=== PATIENT | female | born 1940 | race Caucasian/White ===

== ENCOUNTER 2017-08-31 03:54 | Observation (INO) | payer MEDICARE, SELFPAY ==
[2017-08-31] VITALS (14 sets, daily range): BP systolic 81–126; BP diastolic 36–91; PULSE 58–84; RESP 14–18; TEMP 36.4–36.7; O2SAT 94–99; BMI 18.4; BMI 20.8
--- NOTE | 2017-08-31 03:58 | CT_ITS ---
STUDY: CT BRAIN WITHOUT CONTRAST REASON FOR EXAM: Female, 77 years old. Persistent dizziness for several days worse tonight. History of Meniere's syndrome. RADIATION DOSAGE (If Supplied By Facility): CTDIvol = ( 44.99 ) mGy, DLP = ( 762.36 ) mGycm TECHNIQUE: Transaxial CT imaging of the brain was performed without administration of intravenous contrast material. Individualized dose optimization techniques were used for this CT. COMPARISON: November 18, 2013. FINDINGS: Normal soft tissue structures. Normal calvarium. Normal size ventricles and extra-axial spaces for the patient's age. Normal white matter tracts of the cerebral hemispheres. Normal basal ganglia and thalami. Normal brainstem. Normal cerebellum. There is no intracranial hemorrhage. There are no findings of an acute ischemic infarction. Normal visualized paranasal sinuses. Mastoid air cells well aerated. Appearance of the temporal bones not significantly changed on the images provided. CT/Brain/Head without Contrast IMPRESSION: No acute intracranial abnormality. No significant change from the prior study. If further imaging is limited warranted recommend MRI. Electronically Signed: Sung Lee MD at 5:04 EDT , Service support ,
--- NOTE | 2017-08-31 03:59 | ED.VISSUMM ---
- ER Visit Summary Date of Service: 08/31/17 Chief Complaint: Dizziness History of Present Illness: The patient is a 77 F who complains of dizziness. She has had this for the past 5 days. Patient has a history of M?ni?re's. This was diagnosed by Dr. López with ENT a few years ago. She has been trying Dramamine at home which has not helped. Usually this does help with her symptoms. She denies a fever, headache or chest pain. She has had some nausea without any vomiting. She denies any falls or head trauma. Physical Examination: Vital signs reviewed. HEENT exam unremarkable. Does have cerumen in the right external ear canal. Heart is regular rate and rhythm without murmurs. Lungs are clear to auscultation. Abdomen is soft and nontender. Extremities reveal no edema. Skin exam normal. Neurologic exam normal. Test Results: Laboratory studies are normal. CAT scan of the head reveals no acute findings Emergency Department Course and Treatment: The patient was given IV fluids, Zofran and Antivert. When I reevaluated her she was still having severe dizziness. I then gave her Valium p.o. Upon reevaluation she still cannot move out of the lying position. At this point feel the patient should be admitted for further medications as well as possible physical therapy. Patient was discussed with the hospitalist for admission Treatment Plan: [] Disposition: Admit Impression: Intractable vertigo This note was generated with [employer] dictation software. It may contain incorrect words, spelling, and punctuation that were not noted in review of the chart prior to signing ED Disposition - Plan for ED Patient: Chief Complaint: Dizziness Referrals: Amor Francis Chi, MD [Primary Care Provider] -
[2017-08-31] MEDS: Meclizine 12.5 MG Tablet 25 MG PO (04:07)
[2017-08-31] MEDS: Ondansetron 4 MG/2 ML Vial IV (04:07)
[2017-08-31 04:20] LABS: Absolute Lymphocyte Count 1.74 X10^3/ul (0.83-4.51); Absolute Neutrophil Count 5.2 X10^3/uL (2.0-7.7); Basophil# 0.04 X10^3/uL; Basophil% 0.5 % (0-1); Eosinophil# 0.07 X10^3/uL; Eosinophils% 0.9 % (0-5); Hematocrit 44.4 % (37-47); Hemoglobin 14.5 g/dl (12.0-15.0); Lymphocyte # 1.74 X10^3/ul (4.0); Lymphocyte % 23.1 % (19-41); Mean Corp Hgb Conc 32.7 g/gl (32-36); Mean Corpuscular Hgb 28.4 pg (27.0-32.0); Mean Corpuscular Volume 87.1 fL (81-99); Mean Platelet Vol. 10.8 fl (6.2-12.0); Monocyte# 0.46 X10^3/uL; Monocyte% 6.1 % (0-10); Neutrophil # 5.21 X10^3/uL (2.7-7.7); Neutrophil % 69.3 % (47-70); Platelet Count 269 K/mm3 (150-450); RBC Distribution Width CV 13.5 % (11.6-14.6); RBC Distribution Width SD 43.1 fl (35.1-43.9); White Blood Count 7.5 K/mm3 (4.4-11.0)
[2017-08-31 04:21] LABS: POSITIVE COUNT NO; POSITIVE DIFFERENTIAL NO; POSITIVE MORPHOLOGY NO
[2017-08-31 04:41] LABS: Anion Gap 10 (5-15); BUN 14 mg/dL (7-18); Calcium,Total 9.3 mg/dL (8.5-10.1); Chloride 106 mmol/L (98-107); Creatinine, Serum 0.88 mg/dL (0.55-1.02); EST Glomerular Filtration Rate 66 mL/min (>60); Est Glom Filt Rate - Afr Amer 80 mL/min (>60); Estimated Creatinine Clearance 45.13 ml/min; Glucose 90 mg/dL (74-106); Potassium 3.7 mmol/L (3.5-5.1); Sodium Level 142 mmol/L (136-145)
[2017-08-31] MEDS: diazePAM 5 MG Tablet PO (05:20)
--- NOTE | 2017-08-31 06:15 | PCM.HP.STD ---
Problem List (1) Intractable vertigo Status: Acute (2) Hyperlipidemia Status: Chronic (3) M?ni?re's disease Status: Chronic (4) Polymyalgia rheumatica Status: Chronic (5) Essential tremor Status: Chronic (6) Hypothyroidism Status: Chronic History of Present Illness Date of Admission: 08/31/17 Chief Complaint: Dizziness. The patient is a 77 year old F with past medical history as mentioned above presented to the emergency room because of dizziness. Her symptoms started 3 days ago with dizziness, described as spinning sensation, has been progressive over the last 3 days and today, got more worse, associated with intractable nausea and vomiting, aggravated by movement, no relieving factors and no other associated symptoms. She has a history of M?ni?re's disease and she has been following up with ENT as outpatient. She denies fever or chills. Denied ear pain, discharge or change of her hearing. Denies focal arm or leg weakness. Denies numbness or tingling. She denied chest pain or shortness of breath. In the emergency room, she was afebrile, blood pressure was borderline and she maintained her pulse ox on room air. Her routine blood work was unremarkable. CT scan brain showed no acute findings. She received IV fluids, Antivert, Valium and Zofran without significant improvement. She is not able to ambulate. She is being admitted for intractable vertigo. Past Medical History Past Medical History (Chronic Problems): Chronic Problems Hyperlipidemia (Chronic) M?ni?re's disease (Chronic) Polymyalgia rheumatica (Chronic) Essential tremor (Chronic) Hypothyroidism (Chronic) Allergies CARDIOLITE Allergy (Uncoded 08/31/17 03:57) Other Home Medications: Ambulatory Orders Medication Instructions Recorded Cholecalciferol (Vitamin D3) 5,000 unit PO DAILY 11/18/13 [Vitamin D-3] Levothyroxine Sodium [Levoxyl] 75 mcg PO DAILY 11/18/13 Lorazepam [Ativan] 0.5 mg PO TID PRN PRN 11/18/13 Pravastatin [Pravachol] 80 mg PO DAILY 11/18/13 Prednisone 5 mg PO DAILY 08/31/17 Primidone [Mysoline] 100 mg PO QHS 08/31/17 Surgical History: appendectomy, hysterectomy Psychiatric History: No pertinent psych hx 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 Denies: Anorexia, Chills, Fever Eyes: Reports: Blurred vision. Denies: Double vision, Drainage, Redness HEENT: Denies: Difficulty Hearing, Ear Pain, Eye Pain, Nasal Congestion, Sore Throat Cardiovascular: Reports: Light Headedness. Denies: Chest Pain, Chest Pressure, Chest Tightness, Edema, Heaviness, Orthopnea, Palpitations, Paroxysmal Noc. Dyspnea, Syncope Respiratory: Denies: Cough, Hemoptysis, Pleuritic Pain, Shortness of Breath, Sputum production, Wheezing Gastrointestinal: Reports: Nausea, Vomiting. Denies: Abdominal Pain, Constipation, Diarrhea Genitourinary: Denies: Dysuria, Frequency, Hematuria Musculoskeletal: Denies: Arm Pain, Back Pain, Foot Pain Skin: Denies: Dryness, Rash Neurological: Reports: Headaches. Denies: Balance problems, Double vision, Change in Speech, Slurred speech, Confusion, Focal weakness, Incoordination, Numbness, Tingling Psychiatric: Denies: Anxiety, Depression Endocrine: Denies: Change in Body Habitus, Polydipsia VTE Information - Inpt Only VTE Present on Admission: No VTE Mechan Device Prophylaxis: None VTE Pharm Prophylaxis ordered?: Yes Patient Problems: Active and Suspected Problems Intractable vertigo (Acute) - Physical Exam General: Alert, Oriented x3, Cooperative, No apparent distress HEENT: Atraumatic, PERRLA, EOMI Oral: Moist Mucosa, No Gingival or Mucosal Lesions/ Ulcerations Neck: Supple, No JVD, Negative Carotid Bruits, Trachea Midline, Thyroid Normal Size and Texture Lungs: Clear to auscultation, No rhonchi, No wheeze, No rales, Diminished Cardiovascular: Regular rate, Regular Rhythm, Normal S1, Normal S2, No murmurs Abdomen: Bowel Sounds Present, Soft, Non Tender, Non-Distended, No Hepato-splenomegaly Extremities: No clubbing, No cyanosis, No edema Skin: No rashes, No breakdown Lymphatic: No Cervical, Supraclavicular, or Inguinal Adenopathy Neurological: Cranial nerves II-XII grossly intact, Motor Exam 5/5 strength throughout Psych/Mental Status: Normal Affect, Appropriate, Alert and oriented to time, place, person, mood and affect Vital Signs Temp Pulse Resp BP Pulse Ox 97.9 F 69 18 113/51 L 98 08/31/17 03:55 08/31/17 06:14 08/31/17 06:14 08/31/17 06:14 08/31/17 06:14 Oxygen Delivery Method Room Air Weight: 117 lb 11.629 oz Body Mass Index (BMI) 18.4 Laboratory Tests Past 24 Hrs 08/31/17 08/31/17 04:10 04:10 WBC 7.5 RBC 5.10 Hgb 14.5 Hct 44.4 MCV 87.1 MCH 28.4 MCHC 32.7 RDW 13.5 RDW Differential 43.1 Plt Count 269 MPV 10.8 Immature Gran % (Auto) 0.100 Neut % (Auto) 69.3 Lymph % (Auto) 23.1 [place] % (Auto) 6.1 Eos % (Auto) 0.9 Baso % (Auto) 0.5 Absolute Neuts (auto) 5.2 Absolute Lymphs (auto) 1.74 Total Counted Not Reportable Sodium 142 Potassium 3.7 Chloride 106 Carbon Dioxide 26.0 Anion Gap 10 BUN 14 Creatinine 0.88 Estim Creat Clear Calc 45.13 Est GFR (MDRD) Af Amer 80 Est GFR (MDRD) Non-Af 66 BUN/Creatinine Ratio 16.0 Glucose 90 Calcium 9.3 Clinical Impression(s) from Imaging Studies Brain CT 08/31/17 03:58 IMPRESSION: No acute intracranial abnormality. No significant change from the prior study. If further imaging is limited warranted recommend MRI. Electronically Signed: Sung Lee MD at 5:04 EDT , Service support , Assessment/Plan Active and Suspected Problems Intractable vertigo (Acute) This is a 77 years old female patient presented to the emergency room because of dizziness with spinning sensation in context of history of M?ni?re's disease, received IV fluids, IV Zofran, Antivert and Valium in the ER without improvement and she is being admitted for intractable vertigo #1 intractable vertigo: In context of history of M?ni?re's disease with previous episodes of vertigo. CT scan brain without acute findings. At this time, blood pressure is borderline. Routine blood work was unremarkable. Plan: Admit to [facility] floor for observation, cardiac monitoring, IV fluids, IV Zofran as needed, IV Phenergan, Antivert as needed, Valium as needed, PT OT evaluation and treatment, orthostatic vitals #2 hypothyroidism: Continue levothyroxine. #3 polymyalgia rheumatica: Continue prednisone. #4 hyperlipidemia: Continue statins. #5 essential tremors: Continue primidone. #6 DVT prophylaxis: Subcu Lovenox. This note was generated with [employer] dictation software. It may contain incorrect words, spelling, and punctuation that were not noted in checking the note before signing. Code Visit OBSV E&M: 17054 Initial observation care L3
--- NOTE | 2017-08-31 06:23 | HP.PCM_ITS ---
Problem List (1) Intractable vertigo Status: Acute (2) Hyperlipidemia Status: Chronic (3) M?ni?re's disease Status: Chronic (4) Polymyalgia rheumatica Status: Chronic (5) Essential tremor Status: Chronic (6) Hypothyroidism Status: Chronic History of Present Illness Date of Admission: 08/31/17 Chief Complaint: Dizziness. The patient is a 77 year old F with past medical history as mentioned above presented to the emergency room because of dizziness. Her symptoms started 3 days ago with dizziness, described as spinning sensation, has been progressive over the last 3 days and today, got more worse, associated with intractable nausea and vomiting, aggravated by movement, no relieving factors and no other associated symptoms. She has a history of M?ni?re's disease and she has been following up with ENT as outpatient. She denies fever or chills. Denied ear pain, discharge or change of her hearing. Denies focal arm or leg weakness. Denies numbness or tingling. She denied chest pain or shortness of breath. In the emergency room, she was afebrile, blood pressure was borderline and she maintained her pulse ox on room air. Her routine blood work was unremarkable. CT scan brain showed no acute findings. She received IV fluids, Antivert, Valium and Zofran without significant improvement. She is not able to ambulate. She is being admitted for intractable vertigo. Past Medical History Past Medical History (Chronic Problems): Chronic Problems Hyperlipidemia (Chronic) M?ni?re's disease (Chronic) Polymyalgia rheumatica (Chronic) Essential tremor (Chronic) Hypothyroidism (Chronic) Allergies CARDIOLITE Allergy (Uncoded 08/31/17 03:57) Other Home Medications: Ambulatory Orders Medication Instructions Recorded Cholecalciferol (Vitamin D3) 5,000 unit PO DAILY 11/18/13 [Vitamin D-3] Levothyroxine Sodium [Levoxyl] 75 mcg PO DAILY 11/18/13 Lorazepam [Ativan] 0.5 mg PO TID PRN PRN 11/18/13 Pravastatin [Pravachol] 80 mg PO DAILY 11/18/13 Prednisone 5 mg PO DAILY 08/31/17 Primidone [Mysoline] 100 mg PO QHS 08/31/17 Surgical History: appendectomy, hysterectomy Psychiatric History: No pertinent psych hx 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 Denies: Anorexia, Chills, Fever Eyes: Reports: Blurred vision. Denies: Double vision, Drainage, Redness HEENT: Denies: Difficulty Hearing, Ear Pain, Eye Pain, Nasal Congestion, Sore Throat Cardiovascular: Reports: Light Headedness. Denies: Chest Pain, Chest Pressure, Chest Tightness, Edema, Heaviness, Orthopnea, Palpitations, Paroxysmal Noc. Dyspnea, Syncope Respiratory: Denies: Cough, Hemoptysis, Pleuritic Pain, Shortness of Breath, Sputum production, Wheezing Gastrointestinal: Reports: Nausea, Vomiting. Denies: Abdominal Pain, Constipation, Diarrhea Genitourinary: Denies: Dysuria, Frequency, Hematuria Musculoskeletal: Denies: Arm Pain, Back Pain, Foot Pain Skin: Denies: Dryness, Rash Neurological: Reports: Headaches. Denies: Balance problems, Double vision, Change in Speech, Slurred speech, Confusion, Focal weakness, Incoordination, Numbness, Tingling Psychiatric: Denies: Anxiety, Depression Endocrine: Denies: Change in Body Habitus, Polydipsia VTE Information - Inpt Only VTE Present on Admission: No VTE Mechan Device Prophylaxis: None VTE Pharm Prophylaxis ordered?: Yes Patient Problems: Active and Suspected Problems Intractable vertigo (Acute) - Physical Exam General: Alert, Oriented x3, Cooperative, No apparent distress HEENT: Atraumatic, PERRLA, EOMI Oral: Moist Mucosa, No Gingival or Mucosal Lesions/ Ulcerations Neck: Supple, No JVD, Negative Carotid Bruits, Trachea Midline, Thyroid Normal Size and Texture Lungs: Clear to auscultation, No rhonchi, No wheeze, No rales, Diminished Cardiovascular: Regular rate, Regular Rhythm, Normal S1, Normal S2, No murmurs Abdomen: Bowel Sounds Present, Soft, Non Tender, Non-Distended, No Hepato- splenomegaly Extremities: No clubbing, No cyanosis, No edema Skin: No rashes, No breakdown Lymphatic: No Cervical, Supraclavicular, or Inguinal Adenopathy Neurological: Cranial nerves II-XII grossly intact, Motor Exam 5/5 strength throughout Psych/Mental Status: Normal Affect, Appropriate, Alert and oriented to time, place, person, mood and affect Vital Signs Temp Pulse Resp BP Pulse Ox 97.9 F 69 18 113/51 L 98 08/31/17 03:55 08/31/17 06:14 08/31/17 06:14 08/31/17 06:14 08/31/17 06:14 Oxygen Delivery Method Room Air Weight: 117 lb 11.629 oz Body Mass Index (BMI) 18.4 Laboratory Tests Past 24 Hrs 08/31/17 08/31/17 04:10 04:10 WBC 7.5 RBC 5.10 Hgb 14.5 Hct 44.4 MCV 87.1 MCH 28.4 MCHC 32.7 RDW 13.5 RDW Differential 43.1 Plt Count 269 MPV 10.8 Immature Gran % (Auto) 0.100 Neut % (Auto) 69.3 Lymph % (Auto) 23.1 [place] % (Auto) 6.1 Eos % (Auto) 0.9 Baso % (Auto) 0.5 Absolute Neuts (auto) 5.2 Absolute Lymphs (auto) 1.74 Total Counted Not Reportable Sodium 142 Potassium 3.7 Chloride 106 Carbon Dioxide 26.0 Anion Gap 10 BUN 14 Creatinine 0.88 Estim Creat Clear Calc 45.13 Est GFR (MDRD) Af Amer 80 Est GFR (MDRD) Non-Af 66 BUN/Creatinine Ratio 16.0 Glucose 90 Calcium 9.3 Clinical Impression(s) from Imaging Studies Brain CT 08/31/17 03:58 IMPRESSION: No acute intracranial abnormality. No significant change from the prior study. If further imaging is limited warranted recommend MRI. Electronically Signed: Sung Lee MD at 5:04 EDT , Service support , Assessment/Plan Active and Suspected Problems Intractable vertigo (Acute) This is a 77 years old female patient presented to the emergency room because of dizziness with spinning sensation in context of history of M?ni?re's disease , received IV fluids, IV Zofran, Antivert and Valium in the ER without improvement and she is being admitted for intractable vertigo #1 intractable vertigo: In context of history of M?ni?re's disease with previous episodes of vertigo. CT scan brain without acute findings. At this time, blood pressure is borderline. Routine blood work was unremarkable. Plan : Admit to [facility] floor for observation, cardiac monitoring, IV fluids, IV Zofran as needed, IV Phenergan, Antivert as needed, Valium as needed, PT OT evaluation and treatment, orthostatic vitals #2 hypothyroidism: Continue levothyroxine. #3 polymyalgia rheumatica: Continue prednisone. #4 hyperlipidemia: Continue statins. #5 essential tremors: Continue primidone. #6 DVT prophylaxis: Subcu Lovenox. This note was generated with [employer] dictation software. It may contain incorrect words, spelling, and punctuation that were not noted in checking the note before signing. Code Visit OBSV E&M: 95860 Initial observation care L3
[2017-08-31] MEDS: 0.9% Normal Saline 1,000 ML 100 ML IV ×2 (07:58→16:53)
[2017-08-31] MEDS: predniSONE 5 MG Tablet PO (07:59)
[2017-08-31] MEDS: Levothyroxine 75 MCG Tablet PO (07:59)
[2017-08-31] MEDS: Enoxaparin 40 MG/0.4 ML Syringe SC (07:59)
--- NOTE | 2017-08-31 13:05 | PCM.PN.HOSP ---
Patient Problems: Active and Suspected Problems Intractable vertigo (Acute) Subjective: 77-year-old female with a past medical history of M?ni?re's disease who was admitted with a three-day complaint of dizziness with associated nausea and vomiting and aggravated by movement. Had no aggravating or relieving factors. She had no ear symptoms no ear discharge or change in hearing. She also denied any recent upper respiratory tract infection. She had no episode of tingling. She received IV fluids, Antivert, Valium and Zofran in the ED without significant improvement. She is therefore being managed for intractable vertigo likely due to M?ni?re's disease. Seen and examined this morning. She states dizziness is a bit better and she did not feel nauseous and vomited. Dizziness was so aggravated by movement so she preferred to lie quietly in bed. She denied any fever or chills review of systems was otherwise negative. Vitals/I&O's: Vital Signs Temp Pulse Resp BP Pulse Ox 97.6 F L 60 16 115/49 L 96 08/31/17 07:00 08/31/17 12:00 08/31/17 07:00 08/31/17 07:00 08/31/17 11:32 Oxygen Delivery Method Room Air Weight: 132 lb 15.02 oz Body Mass Index (BMI) 20.8 Intake and Output for Last 24 Hours 08/29/17 08/30/17 08/31/17 23:59 23:59 23:59 Intake Total 650 / 650 Balance 650 / 650 General: Alert, Oriented x3, Cooperative, - - Distress HEENT: Atraumatic, PERRLA, EOMI, Normocephalic Oral: Moist Mucosa Neck: Supple, No JVD, Negative Carotid Bruits Lungs: Clear to auscultation, Normal air movement, No rhonchi, No wheeze, No rales Cardiovascular: Regular rate, Regular Rhythm, Normal S1, Normal S2, No murmurs Abdomen: Bowel Sounds Present, Soft, Non Tender, Non-Distended, No Hepato-splenomegaly Extremities: No clubbing, No cyanosis, No edema, Capillary Refill Less than 3 Seconds Skin: No rashes, No breakdown Musculoskeletal: No Tenderness to Palpation of Joints or Extremities Lymphatic: No Cervical, Supraclavicular, or Inguinal Adenopathy Neurological: Cranial nerves II-XII grossly intact, Motor Exam 5/5 strength throughout, - - Very mild horizontal nystagmus during cranial nerve examination bilaterally. Unable to do Dave-Hallpike test as patient was too dizzy to even sit up. Current Medications Diazepam (Valium) 2 mg PO BID PRN PRN PRN Reason: Vertigo Enoxaparin Sodium (Lovenox) 40 mg SC DAILY@1000 [facility] Last Admin: 08/31/17 07:59 Dose: 40 mg Sodium Chloride () 1,000 mls @ 100 mls/hr IV .Q10H [facility] Last Admin: 08/31/17 07:58 Dose: 100 mls/hr Levothyroxine Sodium (Synthroid) 75 mcg PO DAILY@0600 [facility] Last Admin: 08/31/17 07:59 Dose: 75 mcg Meclizine HCl (Antivert) 25 mg PO 4X/DAY PRN PRN PRN Reason: Vertigo Ondansetron HCl (Zofran) 4 mg IV Q6H PRN PRN PRN Reason: NAUSEA/VOMITING Pravastatin Sodium (Pravachol) 80 mg PO QHS [facility] Prednisone () 5 mg PO DAILYCM [facility] Last Admin: 08/31/17 07:59 Dose: 5 mg Primidone (Mysoline) 100 mg PO QHS [facility] Promethazine HCl (Phenergan Iv) 6.25 mg IV Q6H PRN PRN PRN Reason: NAUSEA/VOMITING Sodium Chloride () 5 - 30 ml IV UD PRN PRN Reason: SALINE FLUSH Medical Necessity - Tobacco Use Smoking Status: Current every day smoker Assessment/Plan Active and Suspected Problems Intractable vertigo (Acute) 1. Intractable vertigo in a patient with history of Meniere's disease was diagnosed with Meniere's disease by her ENT doctor, whom she follows on outpatient basis. CT scan negative during this admission. Marshall has episodes of dizziness. On IV fluids and IV Zofran as needed as well as IV Phenergan. Also meclizine and valium as needed. Continue monitoring orthostatics. PT/OT on board. 2. Hypothyroidism: on levothyroxine 3. Polymyalgia rheumatica: on prednisone 4. Hyperlipidemia: on statin. 5. Benign essential tremor: on primidone 6. DVT prophylaxis: lovenox 7. GI prophylaxis: pantoprazole. This note was generated with [employer] software. It may contain incorrect words, spelling, and punctuation that were not noted in checking the note before signing. Code Visit OBSV E&M: 39131 Initial observation care L2
--- NOTE | 2017-08-31 13:11 | PN_ITS ---
Patient Problems: Active and Suspected Problems Intractable vertigo (Acute) Subjective: 77-year-old female with a past medical history of M?ni?re's disease who was admitted with a three-day complaint of dizziness with associated nausea and vomiting and aggravated by movement. Had no aggravating or relieving factors. She had no ear symptoms no ear discharge or change in hearing. She also denied any recent upper respiratory tract infection. She had no episode of tingling. She received IV fluids, Antivert, Valium and Zofran in the ED without significant improvement. She is therefore being managed for intractable vertigo likely due to M?ni?re's disease. Seen and examined this morning. She states dizziness is a bit better and she did not feel nauseous and vomited. Dizziness was so aggravated by movement so she preferred to lie quietly in bed. She denied any fever or chills review of systems was otherwise negative. Vitals/I&O's: Vital Signs Temp Pulse Resp BP Pulse Ox 97.6 F L 60 16 115/49 L 96 08/31/17 07:00 08/31/17 12:00 08/31/17 07:00 08/31/17 07:00 08/31/17 11:32 Oxygen Delivery Method Room Air Weight: 132 lb 15.02 oz Body Mass Index (BMI) 20.8 Intake and Output for Last 24 Hours 08/29/17 08/30/17 08/31/17 23:59 23:59 23:59 Intake Total 650 / 650 Balance 650 / 650 General: Alert, Oriented x3, Cooperative, - - Distress HEENT: Atraumatic, PERRLA, EOMI, Normocephalic Oral: Moist Mucosa Neck: Supple, No JVD, Negative Carotid Bruits Lungs: Clear to auscultation, Normal air movement, No rhonchi, No wheeze, No rales Cardiovascular: Regular rate, Regular Rhythm, Normal S1, Normal S2, No murmurs Abdomen: Bowel Sounds Present, Soft, Non Tender, Non-Distended, No Hepato- splenomegaly Extremities: No clubbing, No cyanosis, No edema, Capillary Refill Less than 3 Seconds Skin: No rashes, No breakdown Musculoskeletal: No Tenderness to Palpation of Joints or Extremities Lymphatic: No Cervical, Supraclavicular, or Inguinal Adenopathy Neurological: Cranial nerves II-XII grossly intact, Motor Exam 5/5 strength throughout, - - Very mild horizontal nystagmus during cranial nerve examination bilaterally. Unable to do [place]-Hallpike test as patient was too dizzy to even sit up. Current Medications Diazepam (Valium) 2 mg PO BID PRN PRN PRN Reason: Vertigo Enoxaparin Sodium (Lovenox) 40 mg SC DAILY@1000 [facility] Last Admin: 08/31/17 07:59 Dose: 40 mg Sodium Chloride () 1,000 mls @ 100 mls/hr IV .Q10H [facility] Last Admin: 08/31/17 07:58 Dose: 100 mls/hr Levothyroxine Sodium (Synthroid) 75 mcg PO DAILY@0600 [facility] Last Admin: 08/31/17 07:59 Dose: 75 mcg Meclizine HCl (Antivert) 25 mg PO 4X/DAY PRN PRN PRN Reason: Vertigo Ondansetron HCl (Zofran) 4 mg IV Q6H PRN PRN PRN Reason: NAUSEA/VOMITING Pravastatin Sodium (Pravachol) 80 mg PO QHS [facility] Prednisone () 5 mg PO DAILYCM [facility] Last Admin: 08/31/17 07:59 Dose: 5 mg Primidone (Mysoline) 100 mg PO QHS [facility] Promethazine HCl (Phenergan Iv) 6.25 mg IV Q6H PRN PRN PRN Reason: NAUSEA/VOMITING Sodium Chloride () 5 - 30 ml IV UD PRN PRN Reason: SALINE FLUSH Medical Necessity - Tobacco Use Smoking Status: Current every day smoker Assessment/Plan Active and Suspected Problems Intractable vertigo (Acute) 1. Intractable vertigo in a patient with history of Meniere's disease * was diagnosed with Meniere's disease by her ENT doctor, whom she follows on outpatient basis. * CT scan negative during this admission. * Marshall has episodes of dizziness. * On IV fluids and IV Zofran as needed as well as IV Phenergan. Also meclizine and valium as needed. * Continue monitoring orthostatics. * PT/OT on board. 2. Hypothyroidism: on levothyroxine 3. Polymyalgia rheumatica: on prednisone 4. Hyperlipidemia: on statin. 5. Benign essential tremor: on primidone 6. DVT prophylaxis: lovenox 7. GI prophylaxis: pantoprazole. This note was generated with [employer] software. It may contain incorrect words, spelling, and punctuation that were not noted in checking the note before signing. Code Visit OBSV E&M: 19819 Initial observation care L2
[2017-08-31] MEDS: diazePAM 2 MG Tablet PO (13:37)
[2017-08-31] MEDS: Primidone 50 MG Tablet 100 MG PO (22:16)
[2017-08-31] MEDS: Pravastatin 80 MG Tablet PO (22:16)
[2017-09-01] VITALS (7 sets, daily range): BP systolic 100–122; BP diastolic 42–70; PULSE 57–78; RESP 14–18; TEMP 36.6–36.7; O2SAT 94–100
[2017-09-01] MEDS: 0.9% Normal Saline 1,000 ML 100 ML IV (02:41)
[2017-09-01] MEDS: Levothyroxine 75 MCG Tablet PO (06:10)
[2017-09-01 06:42] LABS: Anion Gap 7 (5-15); BUN 9 mg/dL (7-18); BUN/Creat Ratio 12.2 RATIO (10-20); Calcium,Total 8.4 mg/dL (8.5-10.1); Chloride 114 mmol/L (98-107); Creatinine, Serum 0.74 mg/dL (0.55-1.02); EST Glomerular Filtration Rate 81 mL/min (>60); Est Glom Filt Rate - Afr Amer 98 mL/min (>60); Estimated Creatinine Clearance 44.85 ml/min; Glucose 87 mg/dL (74-106); Potassium 4.1 mmol/L (3.5-5.1); Sodium Level 145 mmol/L (136-145)
[2017-09-01 06:43] LABS: Absolute Lymphocyte Count 1.68 X10^3/ul (0.83-4.51); Absolute Neutrophil Count 3.6 X10^3/uL (2.0-7.7); Basophil# 0.06 X10^3/uL; Eosinophil# 0.06 X10^3/uL; Hematocrit 37.9 % (37-47); Hemoglobin 12.3 g/dl (12.0-15.0); Lymphocyte # 1.68 X10^3/ul (4.0); Mean Corp Hgb Conc 32.5 g/gl (32-36); Mean Corpuscular Hgb 28.5 pg (27.0-32.0); Mean Corpuscular Volume 87.9 fL (81-99); Mean Platelet Vol. 11.1 fl (6.2-12.0); Monocyte# 0.62 X10^3/uL; Monocyte% 10.3 % (0-10); Neutrophil # 3.58 X10^3/uL (2.7-7.7); Neutrophil % 59.5 % (47-70); Platelet Count 228 K/mm3 (150-450); RBC Distribution Width CV 13.6 % (11.6-14.6); RBC Distribution Width SD 43.3 fl (35.1-43.9); Red Blood Count 4.31 M/mm3 (4.2-5.4)
[2017-09-01 06:53] LABS: POSITIVE COUNT NO; POSITIVE DIFFERENTIAL NO; POSITIVE MORPHOLOGY NO
[2017-09-01] MEDS: predniSONE 5 MG Tablet PO (08:27)
[2017-09-01] MEDS: Enoxaparin 40 MG/0.4 ML Syringe SC (11:31)
--- NOTE | 2017-09-01 11:50 | PCM.PN.HOSP ---
Subjective: 77-year-old female with a past medical history of M?ni?re's disease who was admitted with a three-day complaint of dizziness with associated nausea and vomiting and aggravated by movement. She is being managed for intractable vertigo likely due to M?ni?re's disease. Patient seen and examined today. She looked very well and had no complaints. Dizziness is much much better than when she came in. She denies any fever or chills, any shortness of breath, any chest pain, any vomiting, any abdominal pain, any diarrhea. Review of systems otherwise negative. Vitals/I&O's: Vital Signs Temp Pulse Resp BP Pulse Ox 97.8 F 66 18 110/43 L 100 09/01/17 09:14 09/01/17 09:14 09/01/17 09:14 09/01/17 09:14 09/01/17 09:14 Oxygen Delivery Method Room Air Weight: 132 lb 15.02 oz Body Mass Index (BMI) 20.8 Orthostatic Vital Signs Start: 08/31/17 17:57 Freq: q24h Status: Active Protocol: Activity Type Activity Date Activity User E-Sign Co-Sign Detail Recorded Client Recorded Date Recorded By Document 09/01/17 06:15 OG [id number] 09/01/17 06:24 OG 09/01/17 06:15 Orthostatic Vitals Standing -Blood Pressure (90/60-120/80) 114/55 L -Extremity Use Left Arm -Pulse Rate (60-100) 65 Sitting -Blood Pressure (90/60-120/80) 115/53 L -Extremity Use Left Arm -Pulse Rate (60-100) 61 Lying -Blood Pressure (90/60-120/80) 121/43 H -Extremity Use Left Arm -Pulse Rate (60-100) 57 L Intake and Output for Last 24 Hours 08/30/17 08/31/17 09/01/17 23:59 23:59 23:59 Intake Total 1289 / 1289 1282 / 1282 Output Total 520 / 520 Balance 1289 / 1289 762 / 762 General: Alert, Oriented x3, Cooperative, No apparent distress HEENT: Atraumatic, PERRLA, EOMI, Normocephalic Oral: Moist Mucosa Neck: Supple, No JVD, Negative Carotid Bruits Lungs: Clear to auscultation, Normal air movement, No rhonchi, No wheeze, No rales Cardiovascular: Regular rate, Regular Rhythm, Normal S1, Normal S2, No murmurs Abdomen: Bowel Sounds Present, Soft, Non Tender, Non-Distended, No Hepato-splenomegaly Extremities: No clubbing, No cyanosis, No edema, Capillary Refill Less than 3 Seconds Skin: No rashes, No breakdown Musculoskeletal: No Tenderness to Palpation of Joints or Extremities Lymphatic: No Cervical, Supraclavicular, or Inguinal Adenopathy Neurological: Cranial nerves II-XII grossly intact, Neuro grossly intact, Motor Exam 5/5 strength throughout Psych/Mental Status: Normal Affect, Appropriate, Alert and oriented to time, place, person, mood and affect Laboratory Results 09/01/17 06:05: WBC 6.0, RBC 4.31, Hgb 12.3, Hct 37.9, MCV 87.9, MCH 28.5, MCHC 32.5, RDW 13.6, RDW Differential 43.3, Plt Count 228, MPV 11.1, Immature Gran % (Auto) 0.200, Neut % (Auto) 59.5, Lymph % (Auto) 28.0, [place] % (Auto) 10.3 H, Eos % (Auto) 1.0, Baso % (Auto) 1.0, Absolute Neuts (auto) 3.6, Absolute Lymphs (auto) 1.68, Total Counted Not Reportable 09/01/17 06:05: Sodium 145, Potassium 4.1, Chloride 114 H, Carbon Dioxide 24.0, Anion Gap 7, BUN 9, Creatinine 0.74, Estim Creat Clear Calc 44.85, Est GFR (MDRD) Af Amer 98, Est GFR (MDRD) Non-Af 81, BUN/Creatinine Ratio 12.2, Glucose 87, Calcium 8.4 L Current Medications Diazepam (Valium) 2 mg PO BID PRN PRN PRN Reason: Vertigo Last Admin: 08/31/17 13:37 Dose: 2 mg Enoxaparin Sodium (Lovenox) 40 mg SC DAILY@1000 [facility] Last Admin: 09/01/17 11:31 Dose: 40 mg Sodium Chloride () 1,000 mls @ 100 mls/hr IV .Q10H [facility] Last Admin: 09/01/17 02:41 Dose: 100 mls/hr Levothyroxine Sodium (Synthroid) 75 mcg PO DAILY@0600 [facility] Last Admin: 09/01/17 06:10 Dose: 75 mcg Meclizine HCl (Antivert) 25 mg PO 4X/DAY PRN PRN PRN Reason: Vertigo Ondansetron HCl (Zofran) 4 mg IV Q6H PRN PRN PRN Reason: NAUSEA/VOMITING Pravastatin Sodium (Pravachol) 80 mg PO QHS [facility] Last Admin: 08/31/17 22:16 Dose: 80 mg Prednisone () 5 mg PO DAILYCM [facility] Last Admin: 09/01/17 08:27 Dose: 5 mg Primidone (Mysoline) 100 mg PO QHS [facility] Last Admin: 08/31/17 22:16 Dose: 100 mg Promethazine HCl (Phenergan Iv) 6.25 mg IV Q6H PRN PRN PRN Reason: NAUSEA/VOMITING Sodium Chloride () 5 - 30 ml IV UD PRN PRN Reason: SALINE FLUSH Medical Necessity - Tobacco Use Smoking Status: Current every day smoker Assessment/Plan 1. Intractable vertigo in a patient with history of Meniere's disease resolving. Feels much better today. Dizziness has largely resolved, and nausea and vomiting have resolved completely. Orthostatics have been negative. On IVF, IV zofran and IV phenergan, as well as meclizine and PRN valium Patient stable and wants to be dced. WIll dc home, to follow up with PCP and ENT doctor. 2. Hypothyroidism: on levothyroxine 3. Polymyalgia rheumatica: on prednisone 4. Hyperlipidemia: on statin. 5. Benign essential tremor: on primidone 6. DVT prophylaxis: lovenox 7. GI prophylaxis: pantoprazole. Disposition: Dc home today. TO follow up with PCP and ENT. This note was generated with [employer] dictation software. It may contain incorrect words, spelling, and punctuation that were not noted in checking the note before signing. Code Visit OBSV E&M: 36300 Subsequent observation care L2
--- NOTE | 2017-09-01 11:54 | PN_ITS ---
Subjective: 77-year-old female with a past medical history of M?ni?re's disease who was admitted with a three-day complaint of dizziness with associated nausea and vomiting and aggravated by movement. She is being managed for intractable vertigo likely due to M?ni?re's disease. Patient seen and examined today. She looked very well and had no complaints. Dizziness is much much better than when she came in. She denies any fever or chills, any shortness of breath, any chest pain, any vomiting, any abdominal pain, any diarrhea. Review of systems otherwise negative. Vitals/I&O's: Vital Signs Temp Pulse Resp BP Pulse Ox 97.8 F 66 18 110/43 L 100 09/01/17 09:14 09/01/17 09:14 09/01/17 09:14 09/01/17 09:14 09/01/17 09:14 Oxygen Delivery Method Room Air Weight: 132 lb 15.02 oz Body Mass Index (BMI) 20.8 Orthostatic Vital Signs Start: 08/31/17 17:57 Freq: q24h Status: Active Protocol: Activity Type Activity Date Activity User E-Sign Co-Sign Detail Recorded Client Recorded Date Recorded By Document 09/01/17 06:15 OG [id number] 09/01/17 06:24 OG 09/01/17 06:15 Orthostatic Vitals Standing -Blood Pressure (90/60-120/80) 114/55 L -Extremity Use Left Arm -Pulse Rate (60-100) 65 Sitting -Blood Pressure (90/60-120/80) 115/53 L -Extremity Use Left Arm -Pulse Rate (60-100) 61 Lying -Blood Pressure (90/60-120/80) 121/43 H -Extremity Use Left Arm -Pulse Rate (60-100) 57 L Intake and Output for Last 24 Hours 08/30/17 08/31/17 09/01/17 23:59 23:59 23:59 Intake Total 1289 / 1289 1282 / 1282 Output Total 520 / 520 Balance 1289 / 1289 762 / 762 General: Alert, Oriented x3, Cooperative, No apparent distress HEENT: Atraumatic, PERRLA, EOMI, Normocephalic Oral: Moist Mucosa Neck: Supple, No JVD, Negative Carotid Bruits Lungs: Clear to auscultation, Normal air movement, No rhonchi, No wheeze, No rales Cardiovascular: Regular rate, Regular Rhythm, Normal S1, Normal S2, No murmurs Abdomen: Bowel Sounds Present, Soft, Non Tender, Non-Distended, No Hepato- splenomegaly Extremities: No clubbing, No cyanosis, No edema, Capillary Refill Less than 3 Seconds Skin: No rashes, No breakdown Musculoskeletal: No Tenderness to Palpation of Joints or Extremities Lymphatic: No Cervical, Supraclavicular, or Inguinal Adenopathy Neurological: Cranial nerves II-XII grossly intact, Neuro grossly intact, Motor Exam 5/5 strength throughout Psych/Mental Status: Normal Affect, Appropriate, Alert and oriented to time, place, person, mood and affect Laboratory Results 09/01/17 06:05: WBC 6.0, RBC 4.31, Hgb 12.3, Hct 37.9, MCV 87.9, MCH 28.5, MCHC 32.5, RDW 13.6, RDW Differential 43.3, Plt Count 228, MPV 11.1, Immature Gran % (Auto) 0.200, Neut % (Auto) 59.5, Lymph % (Auto) 28.0, [place] % (Auto) 10.3 H, Eos % (Auto) 1.0, Baso % (Auto) 1.0, Absolute Neuts (auto) 3.6, Absolute Lymphs (auto) 1.68, Total Counted Not Reportable 09/01/17 06:05: Sodium 145, Potassium 4.1, Chloride 114 H, Carbon Dioxide 24.0, Anion Gap 7, BUN 9, Creatinine 0.74, Estim Creat Clear Calc 44.85, Est GFR (MDRD ) Af Amer 98, Est GFR (MDRD) Non-Af 81, BUN/Creatinine Ratio 12.2, Glucose 87, Calcium 8.4 L Current Medications Diazepam (Valium) 2 mg PO BID PRN PRN PRN Reason: Vertigo Last Admin: 08/31/17 13:37 Dose: 2 mg Enoxaparin Sodium (Lovenox) 40 mg SC DAILY@1000 [facility] Last Admin: 09/01/17 11:31 Dose: 40 mg Sodium Chloride () 1,000 mls @ 100 mls/hr IV .Q10H [facility] Last Admin: 09/01/17 02:41 Dose: 100 mls/hr Levothyroxine Sodium (Synthroid) 75 mcg PO DAILY@0600 [facility] Last Admin: 09/01/17 06:10 Dose: 75 mcg Meclizine HCl (Antivert) 25 mg PO 4X/DAY PRN PRN PRN Reason: Vertigo Ondansetron HCl (Zofran) 4 mg IV Q6H PRN PRN PRN Reason: NAUSEA/VOMITING Pravastatin Sodium (Pravachol) 80 mg PO QHS [facility] Last Admin: 08/31/17 22:16 Dose: 80 mg Prednisone () 5 mg PO DAILYCM [facility] Last Admin: 09/01/17 08:27 Dose: 5 mg Primidone (Mysoline) 100 mg PO QHS [facility] Last Admin: 08/31/17 22:16 Dose: 100 mg Promethazine HCl (Phenergan Iv) 6.25 mg IV Q6H PRN PRN PRN Reason: NAUSEA/VOMITING Sodium Chloride () 5 - 30 ml IV UD PRN PRN Reason: SALINE FLUSH Medical Necessity - Tobacco Use Smoking Status: Current every day smoker Assessment/Plan 1. Intractable vertigo in a patient with history of Meniere's disease * resolving. Feels much better today. Dizziness has largely resolved, and nausea and vomiting have resolved completely. * Orthostatics have been negative. * On IVF, IV zofran and IV phenergan, as well as meclizine and PRN valium * Patient stable and wants to be dced. * WIll dc home, to follow up with PCP and ENT doctor. 2. Hypothyroidism: on levothyroxine 3. Polymyalgia rheumatica: on prednisone 4. Hyperlipidemia: on statin. 5. Benign essential tremor: on primidone 6. DVT prophylaxis: lovenox 7. GI prophylaxis: pantoprazole. Disposition: Dc home today. TO follow up with PCP and ENT. This note was generated with [email or web address] dictation software. It may contain incorrect words, spelling, and punctuation that were not noted in checking the note before signing. Code Visit OBSV E&M: 19107 Subsequent observation care L2
--- NOTE | 2017-09-01 11:55 | PCM.DC ---
- Discharge Diagnoses Current Active Problems: Current Active and Chronic Problems Intractable vertigo (Acute) Hyperlipidemia (Chronic) M?ni?re's disease (Chronic) Polymyalgia rheumatica (Chronic) Essential tremor (Chronic) Hypothyroidism (Chronic) You will use the following diet at home:: Cardiac Your food should be the consistency of: Regular Your liquids should be the consistency of: Regular/Thin Discharge Activity: Return to Normal Activity May resume sexual activity in: No Restrictions Weight Bearing Status: Weight bearing as tolerated Instructions: Managing Dizziness (Vertigo) with Medications, Dizziness (Vertigo) and Balance Problems: Ensuring Your Safety, Understanding Dizziness, Balance Problems, and Fainting, The Inner Ear: Understanding the Balance System Allergies/Adverse Reactions: Allergies CARDIOLITE Allergy (Uncoded 08/31/17 03:57) Other Medications to take at Discharge Cholecalciferol (Vitamin D3) [Vitamin D3] 5,000 unit PO DAILY 11/18/13 Levothyroxine Sodium [Levoxyl] 75 mcg PO DAILY 11/18/13 Lorazepam [Ativan] 0.5 mg PO TID PRN PRN 11/18/13 Pravastatin [Pravachol] 80 mg PO QHS 11/18/13 Prednisone 5 mg PO DAILY 08/31/17 Primidone [Mysoline] 100 mg PO QHS 08/31/17 Primary Care Physician: Amor Francis Chi, MD [Primary Care Provider] - Please follow up with your Primary Care Physician in: one week When: Please follow up with your ENT doctor in one week Proposed Discharge Date: 09/01/17
--- NOTE | 2017-09-01 11:59 | DCINST_ITS ---
- Discharge Diagnoses Current Active Problems: Current Active and Chronic Problems Intractable vertigo (Acute) Hyperlipidemia (Chronic) M?ni?re's disease (Chronic) Polymyalgia rheumatica (Chronic) Essential tremor (Chronic) Hypothyroidism (Chronic) You will use the following diet at home:: Cardiac Your food should be the consistency of: Regular Your liquids should be the consistency of: Regular/Thin Discharge Activity: Return to Normal Activity May resume sexual activity in: No Restrictions Weight Bearing Status: Weight bearing as tolerated Instructions: Managing Dizziness (Vertigo) with Medications, Dizziness (Vertigo ) and Balance Problems: Ensuring Your Safety, Understanding Dizziness, Balance Problems, and Fainting, The Inner Ear: Understanding the Balance System Allergies/Adverse Reactions: Allergies CARDIOLITE Allergy (Uncoded 08/31/17 03:57) Other Medications to take at Discharge Cholecalciferol (Vitamin D3) [Vitamin D3] 5,000 unit PO DAILY 11/18/13 Levothyroxine Sodium [Levoxyl] 75 mcg PO DAILY 11/18/13 Lorazepam [Ativan] 0.5 mg PO TID PRN PRN 11/18/13 Pravastatin [Pravachol] 80 mg PO QHS 11/18/13 Prednisone 5 mg PO DAILY 08/31/17 Primidone [Mysoline] 100 mg PO QHS 08/31/17 Primary Care Physician: Amor Francis Chi, MD [Primary Care Provider] - Please follow up with your Primary Care Physician in: one week When: Please follow up with your ENT doctor in one week Proposed Discharge Date: 09/01/17
--- NOTE | 2017-09-01 11:59 | DS.PCM_ITS ---
Discharge Date and Diagnosis Date of Admission: 08/31/17 Date of Discharge: 09/01/17 - Primary Discharge Diagnosis Active and Suspected Problems Intractable vertigo (Acute) - Secondary Discharge Diagnosis Chronic Problems Hyperlipidemia (Chronic) M?ni?re's disease (Chronic) Polymyalgia rheumatica (Chronic) Essential tremor (Chronic) Hypothyroidism (Chronic) Hospital Course and Treatment Imaging Results: Laboratory Tests 08/31/17 08/31/17 09/01/17 04:10 04:10 06:05 WBC 7.5 6.0 RBC 5.10 4.31 Hgb 14.5 12.3 Hct 44.4 37.9 MCV 87.1 87.9 MCH 28.4 28.5 MCHC 32.7 32.5 RDW 13.5 13.6 RDW Differential 43.1 43.3 Plt Count 269 228 MPV 10.8 11.1 Immature Gran % (Auto) 0.100 0.200 Neut % (Auto) 69.3 59.5 Lymph % (Auto) 23.1 28.0 [place] % (Auto) 6.1 10.3 H Eos % (Auto) 0.9 1.0 Baso % (Auto) 0.5 1.0 Absolute Neuts (auto) 5.2 3.6 Absolute Lymphs (auto) 1.74 1.68 Total Counted Not Reportable Not Reportable Sodium 142 Potassium 3.7 Chloride 106 Carbon Dioxide 26.0 Anion Gap 10 BUN 14 Creatinine 0.88 Estim Creat Clear Calc 45.13 Est GFR (MDRD) Af Amer 80 Est GFR (MDRD) Non-Af 66 BUN/Creatinine Ratio 16.0 Glucose 90 Calcium 9.3 09/01/17 06:05 WBC RBC Hgb Hct MCV MCH MCHC RDW RDW Differential Plt Count MPV Immature Gran % (Auto) Neut % (Auto) Lymph % (Auto) [place] % (Auto) Eos % (Auto) Baso % (Auto) Absolute Neuts (auto) Absolute Lymphs (auto) Total Counted Sodium 145 Potassium 4.1 Chloride 114 H Carbon Dioxide 24.0 Anion Gap 7 BUN 9 Creatinine 0.74 Estim Creat Clear Calc 44.85 Est GFR (MDRD) Af Amer 98 Est GFR (MDRD) Non-Af 81 BUN/Creatinine Ratio 12.2 Glucose 87 Calcium 8.4 L Diagnostic Data Brain CT 08/31/17 03:58 IMPRESSION: No acute intracranial abnormality. No significant change from the prior study. If further imaging is limited warranted recommend MRI. Electronically Signed: Sung Lee MD at 5:04 EDT , Service support , Operations: None Procedures: None Summary of Care Provided: Patient is [id number] female with a past medical history of M?ni?re's disease who was admitted with a three-day complaint of dizziness with associated nausea and vomiting and aggravated by movement. She was managed for intractable vertigo likely due to Meniere's disease. Symptoms resolved with administration of Meclizine and zofran, as well as IVF. She stabilised, and was discharged home on 09/01/17, to follow up with her PCP and ENT doctor. Discharge Diet: Low fat/ Low Cholesterol Discharge Activity: Return to Normal Activity May resume sexual activity in: No Restrictions Weight Bearing Status: Weight bearing as tolerated Call your doctor if you observe: Dizziness, Fainting spells Home Medications: Medications to take at Discharge Cholecalciferol (Vitamin D3) [Vitamin D3] 5,000 unit PO DAILY 11/18/13 Levothyroxine Sodium [Levoxyl] 75 mcg PO DAILY 11/18/13 Lorazepam [Ativan] 0.5 mg PO TID PRN PRN 11/18/13 Pravastatin [Pravachol] 80 mg PO QHS 11/18/13 Prednisone 5 mg PO DAILY 08/31/17 Primidone [Mysoline] 100 mg PO QHS 08/31/17 Primary Care Physician: Amor Francis Chi, MD [Primary Care Provider] - Please follow up with your Primary Care Physician in: one week When: Please follow up with your ENT doctor in one week Patient Instructions: Understanding Dizziness, Balance Problems, and Fainting, The Inner Ear: Understanding the Balance System, Managing Dizziness (Vertigo) with Medications, Dizziness (Vertigo) and Balance Problems: Ensuring Your Safety Disposition: Home Minutes spent on discharge:: 20 Patient Condition:: Good Medical Necessity - Tobacco Use Smoking Status: Current every day smoker Meaningful Use Info Meaningful Use Diagnoses (Choose all that apply): None applicable Code Visit Inpatient E&M: 02375 Disch Hosp
== END 2017-09-01 13:25 | disposition home or self-care (01) ==
LOC: ED 05:12 → MS3 06:17
PROVIDERS: Admitting Provider Hospitalist; Emergency Provider Emergency Medicine; Family Provider Family Medicine Geriatric Medicine; PCP Family Medicine Geriatric Medicine; Visit Provider Student in an Organized Health Care Education/Training Program
DX: R42 Dizziness and giddiness (principal); E78.5 Hyperlipidemia, unspecified; H81.09 Meniere's disease, unspecified ear; M35.3 Polymyalgia rheumatica; G25.0 Essential tremor; E03.9 Hypothyroidism, unspecified; Z79.899 Other long term (current) drug therapy; Z79.52 Long term (current) use of systemic steroids; F17.200 Nicotine dependence, unspecified, uncomplicated
CPT/HCPCS: 36415; 70450; 80048; 85025; 96361; 96372; 96374; 97110; 97161; 97166; 97530; 99218; 99285; 99406; J7030; J7040; A4216; G0378; J2405

== ENCOUNTER → 2017-10-11 11:42 | Outpatient (CLI) | payer MEDICARE, SELFPAY ==
--- NOTE | 2017-10-11 12:16 | CT_ITS ---
STUDY: CT BRAIN WITHOUT CONTRAST REASON FOR EXAM: Female, 77 years old. Generalized weakness. RADIATION DOSAGE (If Supplied By Facility): CTDIvol = ( 44.99 ) mGy, DLP = ( 779.24 ) mGycm TECHNIQUE: Transaxial CT imaging of the brain was performed without administration of intravenous contrast material. Individualized dose optimization techniques were used for this CT. COMPARISON: Comparison is made with prior study dated August 31, 2017. FINDINGS: Normal soft tissue structures. Normal calvarium. There is mild cerebral atrophy with widening of the extra-axial spaces and ventricular dilatation. Normal white matter tracts of the cerebral hemispheres. Normal basal ganglia and thalami. Normal brainstem. Normal cerebellum. There is no intracranial hemorrhage. There are no findings of an acute ischemic infarction. Atherosclerotic calcification of the vertebral arteries and cavernous portions of the internal carotid arteries bilaterally. Normal visualized paranasal sinuses. CT/Brain/Head without Contrast IMPRESSION: Chronic involutional changes of the brain. Electronically Signed: Vinh Olivia MD at 12:34 EDT Tel [phone], Service support ,
[2017-10-11 12:57] LABS: Absolute Lymphocyte Count 1.48 X10^3/ul (0.83-4.51); Absolute Neutrophil Count 3.8 X10^3/uL (2.0-7.7); Basophil# 0.06 X10^3/uL; Eosinophils% 1.7 % (0-5); Erythrocyte Sedimentation Rate 4 mm/hr (0-30); Hematocrit 42.7 % (37-47); Hemoglobin 13.9 g/dl (12.0-15.0); Lymphocyte # 1.48 X10^3/ul (4.0); Lymphocyte % 24.8 % (19-41); Mean Corp Hgb Conc 32.6 g/gl (32-36); Mean Corpuscular Hgb 28.5 pg (27.0-32.0); Mean Corpuscular Volume 87.7 fL (81-99); Mean Platelet Vol. 11.2 fl (6.2-12.0); Monocyte% 8.4 % (0-10); Neutrophil # 3.82 X10^3/uL (2.7-7.7); Neutrophil % 63.9 % (47-70); POSITIVE COUNT NO; POSITIVE DIFFERENTIAL NO; POSITIVE MORPHOLOGY NO; Platelet Count 307 K/mm3 (150-450); RBC Distribution Width CV 13.7 % (11.6-14.6); RBC Distribution Width SD 44.2 fl (35.1-43.9); Red Blood Count 4.87 M/mm3 (4.2-5.4)
[2017-10-11 16:36] LABS: ALB/GLOB Ratio 1.2 RATIO (0.9-2.4); AST(SGOT) 21 U/L (15-37); Alanine Aminotransfer ALT/SGPT 25 U/L (13-56); Alkaline Phosphatase 87 U/L (45-117); Anion Gap 11 (5-15); BUN 11 mg/dL (7-18); BUN/Creat Ratio 15.7 RATIO (10-20); CRP 4.85 mg/L (0.0-3.0); Calcium,Total 9.3 mg/dL (8.5-10.1); Chloride 109 mmol/L (98-107); EST Glomerular Filtration Rate 86 mL/min (>60); Est Glom Filt Rate - Afr Amer 104 mL/min (>60); Globulin 3.2 g/dL (2.2-4.2); Glucose 87 mg/dL (74-106); Protein, Total 7.2 g/dL (6.4-8.2); Sodium Level 143 mmol/L (136-145); Thyroid Stim Hormone (TSH) 0.32 uIU/mL (0.358-3.74)
== END ==
PROVIDERS: Family Provider Family Medicine Geriatric Medicine; PCP Family Medicine Geriatric Medicine; Visit Provider Family Medicine Geriatric Medicine
DX: R53.83 Other fatigue (principal); R51 Headache; N39.0 Urinary tract infection, site not specified; M35.3 Polymyalgia rheumatica
CPT/HCPCS: 36415; 70450; 80053; 84443; 85025; 85652; 86140; 87086

== ENCOUNTER → 2017-10-15 10:02 | Outpatient (CLI) | payer MEDICARE, SELFPAY ==
--- NOTE | 2017-10-15 10:08 | MRI_ITS ---
STUDY: MRA OF THE HEAD WITHOUT CONTRAST REASON FOR EXAM: Female, 77 years old. Weakness. TIA. Tremors. TECHNIQUE: 3-D [id number] (TOF) imaging was performed with MIPs. The study was performed unenhanced. COMPARISON: None. FINDINGS: Normal bilateral petrous carotid arteries. Normal right cavernous carotid artery with a normal supraclinoid bifurcation. Normal left cavernous carotid artery with a normal supraclinoid bifurcation. Normal right A1 segment of the anterior cerebral artery. Normal left A1 segment of the anterior cerebral artery. Normal intact anterior communicating artery (ACOM). Normal bilateral A2 segments of the anterior cerebral arteries. Normal right M1 and M2 segments of the middle cerebral arteries, with a normal M1 bifurcation. Normal left M1 and M2 segments of the middle cerebral arteries, with a normal M1 bifurcation. Normal right posterior communicating artery (PCOM). origin of the left [employer] of the left internal carotid artery rather than and widely patent left posterior communicating artery (PCOM). Normal bilateral vertebral arteries. The left vertebral artery is dominant. Normal basilar artery with a normal basilar bifurcation. The visualized bilateral superior cerebellar (SCA) arteries are normal. 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 Normal right P1 ,, bilateral P2 and visualized bilateral P3 segments of the posterior cerebral arteries. There is no demonstrated aneurysm of the [place]. There is no major vessel occlusion or hemodynamically significant stenosis. There is no demonstrated abnormality of the visualized brain. MRI/MRA Head ONLY without Contrast IMPRESSION: Normal MRA of the head Electronically Signed: Trent Peterson MD at 16:12 EDT , Service support ,
--- NOTE | 2017-10-15 10:08 | MRI_ITS ---
STUDY: MRI BRAIN WITHOUT CONTRAST REASON FOR EXAM: Female, 77 years old. Weakness TECHNIQUE: Standardized multiplanar fat and water weighted pulse sequences were obtained. COMPARISON: CT dated October 11, 2017 FINDINGS: Normal size of the ventricles and extra-axial spaces for the patient's age. There is minimal deep white matter ischemic gliosis or chronic nature. There is no evidence for recent intracranial ischemia or other cause of cytotoxic edema on diffusion weighted imaging (DWI). Normal bilateral basal ganglia. Normal thalami. There is no extra-axial fluid accumulation. Normal flow voids within the major intracranial circulation suggesting patency by spin echo criteria. Normal sella turcica, pituitary gland, infundibular stalk, optic chiasm and hypothalamus. Normal tectal plate and pineal gland. Normal midbrain, avery and medulla. Normal cerebellum. Normal basal cisterns. Normal bilateral temporal bones. Normal bilateral internal auditory canals. No demonstrated orbital abnormality, within the constraints of a routine brain study. Normal visualized paranasal sinuses. Normal calvarium and skull base. Normal visualized soft tissue structures. Normal visualized upper cervical spine. MRI/Brain without Contrast IMPRESSION: There is age-appropriate involutional and ischemic change. There is NO acute ischemic event. There is NO hemorrhage, edema, mass, mass effect or midline shift. Electronically Signed: Devon Das MD at 1:42 EDT , Service support ,
--- NOTE | 2017-10-15 10:34 | MRI_ITS ---
STUDY: MRA NECK WITH AND WITHOUT CONTRAST REASON FOR EXAM: Female, 77 years old. Weakness. TIA. TECHNIQUE: 3-D [id number] (TOF) imaging was performed in an 1.5 T MRI scanner. 6 ml of Gadavist was administered for the contrast enhanced images. COMPARISON: None. FINDINGS: RIGHT CAROTID ARTERIES: Normal right common carotid artery (CCA). Normal right common carotid bulb. Normal origin of the right internal carotid (ICA) artery without a hemodynamically significant stenosis. Normal visualized cervical portion of the right internal carotid artery. Normal origin of the right external carotid artery (ECA). LEFT CAROTID ARTERIES: Normal left common carotid artery (CCA). Normal left common carotid bulb. Normal origin of the left internal carotid (ICA) artery without a hemodynamically significant stenosis. Normal visualized cervical portion of the left internal carotid artery. Normal origin of the left external carotid artery (ECA). VERTEBRAL ARTERIES: Normal antegrade flow within the bilateral vertebral artery without a hemodynamically significant stenosis. MRI/MRA Neck WITH and W/O Contrast IMPRESSION: 1. Normal bilateral cervical carotid and vertebral arteries. 2. Widely patent aortic arch and origins of the great vessels. Electronically Signed: Trent Peterson MD at 16:14 EDT , Service support ,
== END ==
PROVIDERS: Family Provider Family Medicine Geriatric Medicine; PCP Family Medicine Geriatric Medicine; Visit Provider Family Medicine Geriatric Medicine
DX: R53.83 Other fatigue (principal); F17.200 Nicotine dependence, unspecified, uncomplicated; Z86.73 Personal history of transient ischemic attack (TIA), and cerebral infarction without residual deficits
CPT/HCPCS: 70544; 70549; 70551; A9585; A4216

== ENCOUNTER → 2017-10-24 07:14 | Outpatient (CLI) | payer MEDICARE, SELFPAY ==
[2017-10-24 07:32] VITALS: BP 113/65; PULSE 68; RESP 16; TEMP 35.8; O2SAT 98; BMI 24.1
[2017-10-24] MEDS: Cosyntropin 0.25 MG Vial IM (07:51)
[2017-10-24 11:24] LABS: Cholesterol 251 mg/dL (200); High Density Lipoprotein 51 mg/dL; Triglycerides 117 mg/dL; Very Low Density Lipoprotein 23 mg/dL (5-40)
[2017-10-25 12:29] LABS: Vitamin D,25 Hydroxy 20.2 ng/mL (29.95-100.01)
== END ==
PROVIDERS: Family Provider Family Medicine Geriatric Medicine; PCP Family Medicine Geriatric Medicine; Visit Provider Family Medicine Geriatric Medicine
DX: E55.9 Vitamin D deficiency, unspecified (principal); E78.4 Other hyperlipidemia; R53.83 Other fatigue
CPT/HCPCS: 36415; 80061; 82306; 82533; 96372; J0834

== ENCOUNTER → 2017-12-24 09:50 | Outpatient (CLI) | payer MEDICARE, SELFPAY ==
--- NOTE | 2017-12-24 09:52 | RAD_ITS ---
STUDY: X-RAY - RIGHT WRIST REASON FOR EXAM: Female, 77 years old. Atraumatic right wrist pain. TECHNIQUE: 3 view(s) of the wrist were obtained. COMPARISON: None. FINDINGS: There is generalized osteopenia. Normal visualized distal radius and ulna. Normal radiocarpal articulation. Normal distal radioulnar articulation. Normal carpal bones. There is moderate arthrosis of the radial carpal row. There is osteoarthrosis of the first carpometacarpal joint. Normal second through fifth carpometacarpal articulations. Normal visualized metacarpal bones. The soft tissue structures are unremarkable. RAD/Wrist min 3 Views IMPRESSION: Osteopenia with osteoarthritic changes as described. Electronically Signed: Mani Champagne MD at 18:00 EDT , Service support ,
--- NOTE | 2017-12-24 09:56 | RAD_ITS ---
STUDY: X-RAY - CERVICAL SPINE REASON FOR EXAM: Female, 77 years old. Right shoulder pain. TECHNIQUE: 5 view(s) of the cervical spine were obtained. COMPARISON: None FINDINGS: There is generalized osteopenia. Normal anterior atlantoaxial articulation. Normal odontoid process. Normal cervical lordosis. Normal vertebral bodies and endplates. There is intervertebral disc space narrowing at C3-4 to C6-7 with osteophyte formation most marked at C3-4 and C6-7. There is anterior bony neural foraminal encroachment at C5-6 and C6-7 on the right and C3-4, C4-5 and C5-6 on the left. There is diffuse uncovertebral and facet sclerosis. The soft tissue structures are unremarkable. RAD/Cerv Spine 4 or 5 Views IMPRESSION: Osteopenia with moderate cervical spondylosis as described. Electronically Signed: Mani Champagne MD at 17:59 EDT , Service support ,
== END ==
PROVIDERS: Family Provider Family Medicine Geriatric Medicine; PCP Family Medicine Geriatric Medicine; Visit Provider Orthopaedic Surgery
DX: M54.10 Radiculopathy, site unspecified (principal); M25.531 Pain in right wrist
CPT/HCPCS: 72050; 73110

== ENCOUNTER → 2018-02-05 08:05 | Outpatient (CLI) | payer MEDICARE, SELFPAY ==
--- NOTE | 2018-02-05 13:22 | NEURO ---
NCS and/or EMG Patient Report Ordering Doctor: Haleigh Marte DATE OF SERVICE: 02/05/18 Patty Griffith is a 77-year-old female presents for elective diagnostic testing of the right upper limb. Shorts numbness and tingling in the right hand, worse over the last several months. Letter diagnostic findings: The right median motor nerve demonstrates prolonged distal latency with normal amplitude and reduced conduction velocity. Normal right ulnar motor response. Normal right median and ulnar f wave. Prolonged right median sensory distal latency. Needle EMG testing shows no evidence of denervation with normal motor unit action potentials. Mamta diagnostic impression: This is an abnormal study in the right upper limb. 1. Electrodiagnostic findings demonstrate right-sided median mononeuropathy. This is consistent with a mild right carpal tunnel syndrome. If there are any further questions, please do not hesitate to contact me
== END ==
PROVIDERS: Family Provider Family Medicine Geriatric Medicine; PCP Family Medicine Geriatric Medicine; Visit Provider Orthopaedic Surgery
DX: G56.01 Carpal tunnel syndrome, right upper limb (principal)
CPT/HCPCS: 95886; 95910

== ENCOUNTER 2018-03-26 07:04 | Day surgery (SDC) | payer MEDICARE, SELFPAY ==
[2018-03-26] VITALS (7 sets, daily range): BP systolic 101–120; BP diastolic 52–66; PULSE 70–80; RESP 14–16; TEMP 36.1–36.8; O2SAT 95–100; BMI 22.4
--- NOTE | 2018-03-26 09:23 | DCINST_ITS ---
Discharge Diet: No Restrictions - leave dressing in place until seen in postop visit, call with concerns, move and use hand as tolerated, keep dressing clean and dry Discharge Activity: May Not Drive May shower in (days): 1 Ice area for (Minutes): 20 - Every hour while awake. Weight Bearing Status: Weight bearing as tolerated Keep extremity elevated above heart level: Operative Extremity Call your doctor if your incision/area has: Continuous Slow Oozing, Sudden Increased Bleeding, Increased Pain/ Swelling, Increased Redness, Foul Smelling Discharge Call your doctor if you observe: Fever of 101 or Higher, Coldness, Increased Pain, Numbness or Tingling, Change in Color, Calf discomfort Allergies/Adverse Reactions: Allergies CARDIOLITE Allergy (Severe, Uncoded 03/19/18 08:21) Other HIVES AND DROP IN BP Medications to take at Discharge Levothyroxine Sodium [Levoxyl] 75 mcg PO DAILY 11/18/13 Lorazepam [Ativan] 0.5 mg PO TID PRN PRN 11/18/13 Ascorbic Acid [Vitamin C] 500 mg PO DAILY 03/19/18 Cholecalciferol (Vitamin D3) [Vitamin D3] 1,000 unit PO DAILY 03/19/18 Vitamin B Complex 1 each PO DAILY 03/19/18 Acetaminophen/Codeine #3 [Tylenol #3 Tablet] 1 - 2 tablet PO Q6H PRN PRN 5 Days #20 tablet 03/26/18 The following prescriptions were given: Acetaminophen/Codeine #3 [Tylenol #3 Tablet] 1 - 2 tablet PO Q6H PRN PRN 5 Days #20 tablet PRN Reason: Pain Primary Care Physician: Amor Francis Chi, MD [Primary Care Provider] - Test Results: Test results from this visit will be discussed in further detail at your follow- up appointment, if applicable. Please Follow Up With: Haleigh Marte, DO - [phone]
--- NOTE | 2018-03-26 09:25 | OP.PCM_ITS ---
Report of Operation Date of Procedure: 03/26/18 Pre-Operative Diagnosis: right carpal tunnel syndrome Post-Operative Diagnosis: same Surgery/Procedure Performed:: right carpal tunnel release Type of Anesthesia:: Hang Moore Anesthesiologist: Otis Pitt Estimated Blood Loss (mL): none Fluids Replaced: 500cc lr Description of Procedure: Preoperative note Patient is a 77 year old patient with nerve conduction study confirming carpal tunnel syndrome. Patient failed conservative treatment for her carpal tunnel elected proceed with right carpal tunnel release. emg confirm severe right carpal tunnel. Risks benefits and alternatives surgery discussed with patient. Risks including but not limited to blood loss, blood clot, infection, neurova scular injury, failure procedure, loss of life and loss of limb. Patient is aware like proceed with right carpal tunnel release. Operative note Patient seen and examined preoperative holding area. right hand was marked. History and physical and consent reviewed. Patient was brought to the operating room placed supine on the operating table. Sign in, anesthesia, antibiotics were administered. right upper extremity was prepped and draped after Hang block was initiated. All bony prominences well-padded SCDs placed on bilateral lower extremities. We marked out our incisions for our carpal tunnel release at the intersection of Cameron's line in the fourth ray flexed. We extended about a centimeter and a half. Timeout was performed. We then checked ensure that the [place] block was working with pickups which it was not so we performed a local block of 10cc 1% lidocaine. We then used a 15 blade to make a skin incision. We then dissected down tenotomy syllable of the transverse carpal ligament. We then used a new 15 blade cut through the transverse carpal ligament down to the level of the median nerve. We then further released the median nerve the combination of the 15 blade and tenotomies. The nerve was grayish in color and adherent to the transverse carpal ligament volarly. We released the transverse carpal ligament distally to the fat pad and then proximally under standard technique. We then palpated to ensure that we released all of the transverse carpal ligament which we did. We irrigated the incision with copious amounts of sterile saline. All bleeders were coagulated. The incision was closed with interrupted 4-0 nylon stitches. Tourniquet was deflated for total working time of 8 minutes. Patient tolerated procedure well there were no complications. Patient transferred to recovery room in stable condition. Postoperative note Hospital pharmacy has prescription Leave dressing clean dry and intact Follow-up in 2 weeks Call with concerns This note was generated with [employer] dictation software. It may contain incorrect words, spelling, and punctuation that were not noted in checking the note before signing
[2018-03-26] MEDS: proMETHazine 25 MG/ML Syringe 12.5 MG IV (10:25)
== END 2018-03-26 12:00 | disposition home or self-care (01) ==
LOC: SDC 07:05 → AC 07:06
PROVIDERS: Family Provider Family Medicine Geriatric Medicine; PCP Family Medicine Geriatric Medicine; Referring Provider Orthopaedic Surgery; Visit Provider Orthopaedic Surgery
PROC: (CPT 64721; principal; 2018-03-26 08:25)
DX: G56.01 Carpal tunnel syndrome, right upper limb (principal); F17.200 Nicotine dependence, unspecified, uncomplicated
CPT/HCPCS: 01810; 64721; J7120; J2405

== ENCOUNTER 2018-04-08 14:41 | Outpatient (RCR) | payer MEDICARE, SELFPAY ==
--- NOTE | 2018-04-10 11:12 | HP.OTEVAL_ITS ---
Patient's Visit Information CHITRA DUMONT is a 77 year old F, referred to Occupational Therapy by Haleigh Marte DO, with a diagnosis of S/P RT CTR, stiffness. Date of Evaluation: 04/08/18 Occupational Therapist: Molly Michaud, EDGARR/Sarah, CHT - Subjective Subjective: pt. arrives after a carpal tunnel release. 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 Pt. tried conservative methods in the past (wearing a splint), however they were ineffective. pt. reports that prior to the sx she had a lot of numbness/tingling bob. when driving. Post sx, the numbness/tingling is gone. Pt states due to high co-pay she would like a HEP. - Pain R hand/wrist 0 Pain Intensity Range: 0 - Objective Objective/Observation: swelling in the R hand - ROM Wrist: 30/30 ROM Comments: L hand demo WNL. 5th: MP: 0/71. PIP: 0/97. DIP: 0/87. 4th. MP: 0/72. PIP: 0/96. DIP: 0/60. 3rd. MP: 0/74. PIP: 0/84. DIP: 0/72. 2nd. MP: 0/75. PIP: 0/83. DIP: 0/65. L Thumb. MP: 0/45. IP: 0/60. OT noted some pain with ROM. - Strength Laboratory Sample Carrier: NT d/t pt. getting stitches removed today Lateral Pinch: NT d/t pt. getting stitches removed today Tripod Pinch: NT d/t pt. 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 by completing strengthening exercises and stretches in order to complete BADL?s and IADL?s. Patient will improve lateral and tripod grasps by 10 lbs. by completing strengthening and stretching exercises in order to complete BADL?s and IADL?s. Goal:: Patient will increase ROM in digits of R hand in order to make full composite fist by completing strengthening and stretching exercises in order to complete BADL?s and IADL?s. Patient will improve ROM in R wrist by 15 degress in order to increase I with BADL's and IADL's. Goal:: Patient will demo understanding of joint protection and ECM recommendations for increase I with BADL?s and IADL?s. - Rehabilitation General Assessment: Patient presents after a carpal tunnel release in the R hand. Following the sx, pt. presents with decreased strength, ROM, and decreased ability to complete BADL's and IADL's. pt. reports that she only wants this initial evaluation, d/t co-pay for therapy. OT provided education to pt. today about diagnoses and HEP. Pt agrees with HEP and to call with questions or concerns. Rehabilitation Potential: Good - Anticipated Interventions Anticipated Interventions: A/AAROM/PROM, Strengthening, Triggerpoint Release, Modalities, Joint Protection/Energy Conservation, Ergonomic Education, ADL Training, Education re Diagnosis, Home Program - Visit Plan Frequency: eval only Duration: eval only TEXT: Thank you for the opportunity to evaluate your patient. For Medicare and Medicare HMO plans, please review the plan of care and approve it. It will need to be FAXED BACK to us at [phone] for Medicare purposes. Please let me know if there are questions or concerns regarding this plan of care. Physician Signature: Date:
--- NOTE | 2018-05-07 10:09 | HP.OT.NRP ---
HP - Discharge Summary - Patient Information CHITRA DUMONT was seen in my office for initial evaluation on 04/08/18. The following Plan of Care was established for this patient: Initial Frequency: eval only Initial Duration: eval only - Anticipated Interventions Anticipated Interventions: A/AAROM/PROM, Strengthening, Triggerpoint Release, Modalities, Joint Protection/Energy Conservation, Ergonomic Education, ADL Training, Education re Diagnosis, Home Program This patient was last seen in our office 04/08/18. Pertinent comments regarding their Occupational therapy will appear below: Client was seen for initial OT eval for CTS. Client requested HEP at time of eval. Client given HEP and advised to all with questions or concerns. Client has not done so at this time and is D/C with HEP. At this point I will be discontinuing this patient from occupational therapy. I would be happy to see this patient again in the future if found appropriate by the physician. Thank you! Molly Michaud, OTR/L, CHT
== END 2018-04-08 19:00 | disposition home or self-care (01) ==
LOC: OT 14:41
PROVIDERS: Family Provider Family Medicine Geriatric Medicine; PCP Family Medicine Geriatric Medicine; Visit Provider Orthopaedic Surgery
DX: Z98.890 Other specified postprocedural states (principal); M25.60 Stiffness of unspecified joint, not elsewhere classified
CPT/HCPCS: 97140; 97166

== ENCOUNTER → 2018-04-23 12:21 | Outpatient (CLI) | payer MEDICARE, SELFPAY ==
[2018-04-23 13:46] LABS: Absolute Lymphocyte Count 1.46 X10^3/ul (0.83-4.51); Absolute Neutrophil Count 4.2 X10^3/uL (2.0-7.7); Basophil# 0.09 X10^3/uL; Basophil% 1.4 % (0-1); Eosinophils% 3.1 % (0-5); Hematocrit 42.7 % (37-47); Hemoglobin 13.8 g/dl (12.0-15.0); Lymphocyte # 1.46 X10^3/ul (4.0); Lymphocyte % 22.3 % (19-41); Mean Corp Hgb Conc 32.3 g/gl (32-36); Mean Corpuscular Hgb 28.7 pg (27.0-32.0); Mean Corpuscular Volume 88.8 fL (81-99); Mean Platelet Vol. 11.1 fl (6.2-12.0); Monocyte# 0.56 X10^3/uL; Monocyte% 8.5 % (0-10); Neutrophil # 4.22 X10^3/uL (2.7-7.7); Neutrophil % 64.4 % (47-70); POSITIVE COUNT NO; POSITIVE DIFFERENTIAL NO; POSITIVE MORPHOLOGY NO; Platelet Count 319 K/mm3 (150-450); RBC Distribution Width CV 13.5 % (11.6-14.6); RBC Distribution Width SD 43.6 fl (35.1-43.9); Red Blood Count 4.81 M/mm3 (4.2-5.4); White Blood Count 6.6 K/mm3 (4.4-11.0)
[2018-04-23 14:11] LABS: ALB/GLOB Ratio 1.2 RATIO (0.9-2.4); AST(SGOT) 17 U/L (15-37); Alanine Aminotransfer ALT/SGPT 24 U/L (13-56); Alkaline Phosphatase 96 U/L (45-117); Anion Gap 5 (5-15); BUN 12 mg/dL (7-18); Calcium,Total 9.5 mg/dL (8.5-10.1); Chloride 109 mmol/L (98-107); Creatinine, Serum 0.75 mg/dL (0.55-1.02); EST Glomerular Filtration Rate 80 mL/min (>60); Est Glom Filt Rate - Afr Amer 96 mL/min (>60); Globulin 3.4 g/dL (2.2-4.2); Glucose 85 mg/dL (74-106); Protein, Total 7.4 g/dL (6.4-8.2); Sodium Level 140 mmol/L (136-145); Thyroid Stim Hormone (TSH) 1.65 uIU/mL (0.358-3.74)
--- OUTSIDE RECORDS SUMMARY | 2018-06-18 21:30 | XMS RPT_ITS ---
:1940 Author Organization [facility] Support Name Relationship Address Phone JOHN GRIFFITH Unavailable [address] + [place] [address] R Unavailable Unavailable Unavailable JOHN GRIFFITH Unavailable [address] + [place] [address] R Unavailable Unavailable Unavailable JOHN GRIFFITH Unavailable [address] + [place] [address] R Unavailable Unavailable Unavailable JOHN GRIFFITH Unavailable [address] + [place] [address] R Unavailable Unavailable Unavailable TIM JOHN Unavailable [address] + [place] [address] R Unavailable Unavailable Unavailable JOHN GRIFFITH Unavailable [address] + [place] [address] R Unavailable Unavailable Unavailable JOHN GRIFFITH Unavailable [address] + [place] [address] R Unavailable Unavailable Unavailable JOHN GRIFFITH Unavailable [address] + [place] [address] R Unavailable Unavailable Unavailable JOHN GRIFFITH Unavailable [address] + [place] [address] R Unavailable Unavailable Unavailable TIM JOHN Unavailable [address] + [place] [address] R Unavailable Unavailable Unavailable JOHN GRIFFITH Unavailable [address] + [place] [address] R Unavailable Unavailable Unavailable GRIFFITH, JOHN Unavailable [address] + [place] [address] R Unavailable Unavailable Unavailable TIM JOHN Unavailable [address] + [place] [address] R Unavailable Unavailable Unavailable GRIFFITH JOHN Unavailable [address] + [place] [address] R Unavailable Unavailable Unavailable JOHN GRIFFITH Unavailable [address] + [place] [address] R Unavailable Unavailable Unavailable JOHN GRIFFITH Unavailable [address] + [place] [address] R Unavailable Unavailable Unavailable JOHN GRIFFITH Unavailable [address] + [place] [address] R Unavailable Unavailable Unavailable Care Team Providers Name Role Phone Aureliano Rodriguez Attending Unavailable Tito, Amor Chi Referring Unavailable Tito, Amor Chi Primary Care Unavailable Ashelfah, Ghasem Admitting Unavailable Koram, Fiona Lindsey Attending Unavailable Ashelfah, Ghasem Admitting Unavailable Ashelfah, Ghasem Attending Unavailable Tito, Amor Chi Primary Care Unavailable Ashelfah, Ghasem Consulting Unavailable Ashelfah, Ghasem Admitting Unavailable Tito, Amor Chi Primary Care Unavailable Koram, Fiona Lindsey Consulting Unavailable Wai Pimentel Attending Unavailable Tito, Amor Chi Attending Unavailable Tito, Amor Chi Referring Unavailable Tito, Amor Chi Primary Care Unavailable Tito, Amor Chi Attending Unavailable Tito, Amor Chi Primary Care Unavailable Tito, Amor Chi Attending Unavailable Tito, Amor Chi Referring Unavailable Tito, Amor Chi Primary Care Unavailable ChicorelliMyriame Attending Unavailable Tito, Amor Chi Referring Unavailable Tito, Amor Chi Primary Care Unavailable MelissaorelHaleigh samuels Attending Unavailable Chicorelli, Haleigh Referring Unavailable Tito, Amor Chi Primary Care Unavailable ChicorelliMyriame Attending Unavailable Chicorelli, Haleigh Referring Unavailable Tito, Amor Chi Primary Care Unavailable ChicorelHaleigh samuels Attending Unavailable Tito, Amor Chi Referring Unavailable Aureliano Rodriguez Attending Unavailable Tito, Amor Chi Referring Unavailable ChicorelliHaleigh Attending Unavailable Chicorelli, Haleigh Referring Unavailable Tito, Amor Chi Primary Care Unavailable ChicorelliMyriame Attending Unavailable Chicorelli, Haleigh Referring Unavailable Tito, Amor Chi Primary Care Unavailable Myriam Martee Consulting Unavailable MelissaorelHaleigh samuels Attending Unavailable Tito, Amor Chi Referring Unavailable ChicorelliMyriame Attending Unavailable Tito, Amor Chi Primary Care Unavailable Tito, Amor Chi Attending Unavailable Tito, Amor Chi Referring Unavailable Tito, Amor Chi Primary Care Unavailable PROBLEMS PROBLEMS DATE TYPE CONDITION / CODE ATTENDING STATUS SOURCE 04/23/2018 Unknown R53.83 - Other Tito, 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[facility] fatigue / Community R53.83(ICD-10) Hospital Repository 04/23/2018 Unknown E55.9 - Vitamin D Tito, 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[facility] deficiency, Community unspecified / Hospital E55.9(ICD-10) Repository 05/07/2018 Unknown Z98.890 - Other Chicorelli, Active [facility] specified [facility] postprocedural Hospital states / Repository Z98.890(ICD-10) 04/29/2018 Unknown G89.18 - Other acute Chicorelli, Active [place] postprocedural pain [facility] / G89.18(ICD-10) Hospital Repository 12/24/2017 Unknown M54.10 - Chicorelli, Active [facility] Radiculopathy, site [facility] unspecified / Hospital M54.10(ICD-10) Repository 12/24/2017 Unknown M25.531 - Pain in Chicorelli, Active [facility] right wrist / [facility] M25.531(ICD-10) Hospital Repository 10/24/2017 Unknown E78.4 - Other Tito, 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[facility] hyperlipidemia / Community E78.4(ICD-10) Hospital Repository 10/16/2017 Unknown Z86.73 - Personal Tito, 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[facility] history of transient Community ischemic attack Hospital (TIA), 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 [place] [address] Fax REHABILITATION SERVICES DISCHARGE SUMMARY MR#: [id number] Acct: [id number] Name: CHITRA GRIFFITH Rep #: [id number] : 1940 77 From: Molly Michaud OTR/L, CHT Referring Dr.: Haleigh Marte DO Status: REG RCR Eval Date: Discharge Date: HP - Discharge Summary - Patient Information CHITRA GRIFFITH was seen in my office for initial evaluation on 04/08/18. The following Plan of Care was established for this patient: Initial Frequency: eval only Initial Duration: eval only - Anticipated Interventions Anticipated Interventions: A/AAROM/PROM, Strengthening, Triggerpoint Release, Modalities, Joint Protection/Energy Conservation, Ergonomic Education, ADL Training, Education re Diagnosis, Home Program This patient was last seen in our office 04/08/18. Pertinent comments regarding their Occupational therapy will appear below: Client was seen for initial OT eval for CTS. Client requested HEP at time of eval. Client given HEP and advised to all with questions or concerns. Client has not done so at this time and is D/C with HEP. At this point I will be discontinuing this patient from occupational therapy. I would be happy to see this patient again in the future if found appropriate by the physician. Thank you! Molly Michaud, OTR/L, CHT <Electronically signed by Molly Michuad OTR/L, CHT> 05/07/18 1011 CC: Haleigh Marte DO; Amor Francis MD MK Signed ORTHOPEDIC VISIT Observed: 05/06/2018 Status: F Source: [place] REPORT 12:11 PM [facility] REPOSITORY [facility]ics AND [facility] Medicine [address] [place] [address] OFFICE VISIT Date of Service: 05/06/18 MR#: [id number] Acct: [id number] Name: CHITRA GRIFFITH Rep #: [id number] : 1940 Provider: MARY Rodriguez Age/Sex: 77/F Location: [facility] [place] Status: Signed Intake Intake Visit Reasons: RIGHT WRIST Chief Complaint: CORTISOL STIM TEST Is patient in pain?: Yes (long and ring fingers on right hand ache) Allergies CARDIOLITE Allergy (Severe, Uncoded 03/19/18 08:21) Other Medications Levothyroxine Sodium [Levoxyl] 75 mcg PO DAILY 11/18/13 [History Confirmed 03/26/18] Lorazepam [Ativan] 0.5 mg PO TID PRN PRN 11/18/13 [History Confirmed 03/26/18] Ascorbic Acid [Vitamin C] 500 mg PO DAILY 03/19/18 [History Confirmed 03/26/18] Cholecalciferol (Vitamin D3) [Vitamin D3] 1,000 unit PO DAILY 03/19/18 [History Confirmed 03/26/18] Vitamin B Complex 1 ea PO DAILY 03/19/18 [History Confirmed 03/26/18] PFSH Social History Smoking Status: Current every day smoker HPI RIGHT WRIST: Details: CHITRA GRIFFITH is a 77 year old F here today for followup from CTR on 03/26/18. Patient states she has some achiness in ring and long fingers on right hand. She states she takes occasional Advil. She has no numbness or tingling. Ortho Exam Right Wrist/Hand Skin/Wound: Yes healed, No Swelling, No Ecchymosis Contralateral Normal: Yes A1 steph trigger: No Right Wrist: Yes ROM-Extension 0-60, ROM-Flexion 0-80, ROM- Pronation 0-80, ROM-Supination 0-90 and Urbano's Test; no Durken's Test Sensation: Radial: I, Ulnar: I, Median: I WRIST: Patient has no evident abnormalities on inspection today. She has no localized or generalized swelling noted. her incision site has healed well without any signs of infection. her ROM and strength in the wrist is normal at this time. She does have some tenderness around the radial styloid region as well as having a positive finklestein's test indicating some DeQuervains tenosynovitis. Her sensation is great at this time in the fingers / hand. Left Wrist/Hand Skin/Wound: No Swelling, No Ecchymosis Assessment AND Plan Problems 1. Status post carpal tunnel release Z98.890 2. Orthopedic aftercare Z47.89 Plan Patient is doing well 6 weeks post-op from carpal tunnel release. Incision is healing well without signs of infection. She has good ROM and strength in the hand and normal sensation throughout. She does have some evidence of DeQuervains tenosynovitis today and thus we are going to have her get a thumb spica splint, ice the area, and take NSAID. She needs to continue to work on ROM and strength of the wrist. Otherwise she can do activities as tolerated. Plan Detail Follow Up 6 Weeks Coding Level of Care Code Global Post Op Diagnoses Status post carpal tunnel release Z98.890 Orthopedic aftercare Z47.89 05/06/18 1211 <Electronically signed by Aureliano HERNANDEZ> Date Aureliano HERNANDEZ Cosigner Signature: Date (if applicable) CC: CBC W/DIFF, AUTOMATED Collected: 04/23/2018 Status: F Source: [place] 12:28 PM [facility] REPOSITORY TYPE CODE TESTS RESULT OUT OF RANGE REFERENCE UNITS LAB L100.1000 4.4-11.0 K/mm3 Normal WBC 6.6 LAB L100.1200 4.2-5.4 M/mm3 Normal RBC 4.81 LAB L100.1300 12.0-15.0 g/dl Normal HGB 13.8 LAB L100.1400 37-47 % Normal HCT 42.7 LAB L100.1500 81-99 fL Normal MCV 88.8 LAB L100.1600 27.0-32.0 pg Normal MCH 28.7 LAB L100.1700 32-36 g/gl Normal MCHC 32.3 LAB L100.1810 11.6-14.6 % Normal RDW CV 13.5 LAB L100.1820 35.1-43.9 fl Normal RDW SD 43.6 LAB L100.1900 150-450 K/mm3 Normal PLT 319 LAB L100.2000 6.2-12.0 fl Normal MPV 11.1 LAB L100.2100 47-70 % Normal NEUT% 64.4 LAB L100.2200 19-41 % Normal LY% 22.3 LAB L100.2300 0-10 % Normal MONO% 8.5 LAB L100.2400 0-5 % Normal EO% 3.1 LAB L100.2500 0-1 % High BASO% 1.4 LAB L100.2550 0.0-0.9 % Normal IM GRAN % 0.300 Result Comment: IG% - Immature Granulocytes (promyelocytes, myelocytes and metamyelocytes) > 1% indicates that a LEFT SHIFT is Present. LAB L100.2620 2.0-7.7 X10 3/uL Normal Absolute Neut 4.2 LAB L100.2720 0.83-4.51 X10 3/ul Normal Absolute Lymph 1.46 Performed By: #### L100.0100 #### [facility] [address] [place], [address] VITAMIN D,25 HYDROXY Collected: 04/23/2018 Status: F Source: [place] 12:28 PM [facility] REPOS[facility] TYPE CODE TESTS RESULT OUT OF RANGE REFERENCE UNITS LAB L506.1000 29.95-100.01 ng/mL Normal Vitamin D 30.0 25-OH Result Comment: Vitamin D 25(OH) Status Range Deficiency <20 ng/mL (50nmol/L) Insuffciency 20 - 30 ng/mL (50 - 75 nmol/L) Sufficiency 30 - 100 ng/mL (75 - 250 nmol/L) Toxicity >100 ng/mL (>250 nmol/L) Performed By: #### L506.1000 #### [facility] [address] [place], [place], [address] COMPREHENSIVE METABOLIC Collected: 04/23/2018 Status: F Source: [facility] 12:28 PM [facility] REPOS[facility]ORY TYPE CODE TESTS RESULT OUT OF RANGE REFERENCE UNITS LAB L501.0100 74-106 mg/dL Normal GLU 85 Result Comment: Please note revised GLUCOSE reference range effective 2017. LAB L501.1000 7-18 mg/dL Normal BUN 12 LAB L501.1100 0.55-1.02 mg/dL Normal CREAT,SERUM 0.75 Result Comment: The validity of the calculated GFR AND GFRAA in patients over 70 years has not been determined. Clinical correlation is essential. LAB L501.1110 >60 mL/min Normal EST GFR 80 Result Comment: Non- GFR Calc LAB L501.1115 >60 mL/min Normal EST GFR - AA 96 Result Comment: GFR Calc LAB L501.1300 10-20 RATIO Normal BUN/CRE 16.0 LAB L501.1500 6.4-8.2 g/dL T Normal PROT 7.4 LAB L501.1800 3.2-5.0 g/dL Normal ALB 4.0 LAB L501.1950 2.2-4.2 g/dL Normal GLOB 3.4 LAB L501.2000 0.9-2.4 RATIO Normal A/G 1.2 LAB L501.2200 8.5-10.1 mg/dL CA Normal 9.5 LAB L501.4100 15-37 U/L Normal AST 17 LAB L501.4305 45-117 U/L Normal ALK P 96 LAB L501.4405 13-56 U/L Normal ALT 24 LAB L501.4600 0.20-1.00 mg/dL T Normal BILI 0.60 LAB L501.5300 136-145 mmol/L NA Normal 140 LAB L501.5600 3.5-5.1 mmol/L K Normal 4.0 LAB L501.5900 98-107 mmol/L High CL 109 LAB L501.6100 21.0-32.0 mmol/L Normal CO2 26.0 LAB L501.6200 5-15 Normal GAP 5 Performed By: #### L500.4050, L501.9520 #### [facility] [address] [place], [address] THYROID STIM HORMONE Collected: 04/23/2018 Status: F Source: [place] ([facility]) 12:28 PM [facility] REPOS[facility]ORY TYPE CODE TESTS RESULT OUT OF RANGE REFERENCE UNITS LAB L501.9520 0.358-3.74 uIU/mL Normal TSH 1.65 Performed By: #### L500.4050, L501.9520 #### [facility] [address] [place], [address] OT GENERAL EVALUATION Observed: 04/15/2018 Status: F Source: [place] 9:18 AM [facility] [place], [place] [address] Fax REHABILITATION SERVICES INITIAL EVALUATION MR#: [id number] Acct: [id number] Name: CHITRA GRIFFITH Rep #: [id number] : 1940 77 From: Molly Michaud OTR/L, CHT Referring DrGallo: Haleigh Marte DO Status: REG RCR Insurance: [employer] MEDICARE PPO Eval Date: SELF PAY INSURANCE Patient's Visit Information CHITRA GRIFFITH is a 77 year old F, referred to Occupational Therapy by Haleigh Marte DO, with a diagnosis of S/P RT CTR, stiffness. Date of Evaluation: 04/08/18 Occupational Therapist: Molly Michaud, EDGARR/Sarah, CHT - Subjective Subjective: pt. arrives after a carpal tunnel release. 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 Pt. tried conservative methods in the past (wearing a splint), however they were ineffective. pt. reports that prior to the sx she had a lot of numbness/tingling bob. when driving. Post sx, the numbness/tingling is gone. Pt states due to high co-pay she would like a HEP. - Pain R hand/wrist 0 Pain Intensity Range: 0 - Objective Objective/Observation: swelling in the R hand - ROM Wrist: 30/30 ROM Comments: L hand demo WNL. 5th: MP: 0/71. PIP: 0/97. DIP: 0/87. 4th. MP: 0/72. PIP: 0/96. DIP: 0/60. 3rd. MP: 0/74. PIP: 0/84. DIP: 0/72. 2nd. MP: 0/75. PIP: 0/83. DIP: 0/65. L Thumb. MP: 0/45. IP: 0/60. OT noted some pain with ROM. - Strength Front Sight Attacher: NT d/t pt. getting stitches removed today Lateral Pinch: NT d/t pt. getting stitches removed today Tripod Pinch: NT d/t pt. 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 by completing strengthening exercises and stretches in order to complete BADL s and IADL s. Patient will improve lateral and tripod grasps by 10 lbs. by completing strengthening and stretching exercises in order to complete BADL s and IADL s. Goal:: Patient will increase ROM in digits of R hand in order to make full composite fist by completing strengthening and stretching exercises in order to complete BADL s and IADL s. Patient will improve ROM in R wrist by 15 degress in order to increase I with BADL's and IADL's. Goal:: Patient will demo understanding of joint protection and ECM recommendations for increase I with BADL s and IADL s. - Rehabilitation General Assessment: Patient presents after a carpal tunnel release in the R hand. Following the sx, pt. presents with decreased strength, ROM, and decreased ability to complete BADL's and IADL's. pt. reports that she only wants this initial evaluation, d/t co-pay for therapy. OT provided education to pt. today about diagnoses and HEP. Pt agrees with HEP and to call with questions or concerns. Rehabilitation Potential: Good - Anticipated Interventions Anticipated Interventions: A/AAROM/PROM, Strengthening, Triggerpoint Release, Modalities, Joint Protection/Energy Conservation, Ergonomic Education, ADL Training, Education re Diagnosis, Home Program - Visit Plan Frequency: eval only Duration: eval only TEXT: Thank you for the opportunity to evaluate your patient. For Medicare and Medicare HMO plans, please review the plan of care and approve it. It will need to be FAXED BACK to us at [phone] for Medicare purposes. Please let me know if there are questions or concerns regarding this plan of care. Physician Signature: Date: <Electronically signed by Molly GODOY/LAVERNE Smith> 04/15/18 0918 CC: Haleigh Marte DO; Amor Francis MD SADIE Signed For Medicare only, by signing this I certify the plan of care. Physicians Signature Date ORTHOPEDIC VISIT Observed: 04/08/2018 Status: F Source: [place] REPORT 10:15 AM [facility] REPOSITORY [facility] Orthopaedics AND Sports Medicine [address] [facility] [address] [place] [address] OFFICE VISIT Date of Service: 04/08/18 MR#: [id number] Acct: [id number] Name: CHITRA GRIFFITH Rep #: [id number] : 1940 Provider: Haleigh Marte DO Age/Sex: 77/F [facility] Status: Signed Intake Intake Visit Reasons: RIGHT WRIST Chief Complaint: CORTISOL STIM TEST Allergies CARDIOLITE Allergy (Severe, Uncoded 03/19/18 08:21) Other Medications Levothyroxine Sodium [Levoxyl] 75 mcg PO DAILY 11/18/13 [History Confirmed 03/26/18] Lorazepam [Ativan] 0.5 mg PO TID PRN PRN 11/18/13 [History Confirmed 03/26/18] Ascorbic Acid [Vitamin C] 500 mg PO DAILY 03/19/18 [History Confirmed 03/26/18] Cholecalciferol (Vitamin D3) [Vitamin D3] 1,000 unit PO DAILY 03/19/18 [History Confirmed 03/26/18] Vitamin B Complex 1 ea PO DAILY 03/19/18 [History Confirmed 03/26/18] PFSH Social History Smoking Status: Current every day smoker HPI RIGHT WRIST: Details: CHITRA GRIFFITH is a 77 year old F here today for f/u 03/26 CTR of the right wrist. She has barely any n/t left and a healing cut in the proximal forearm but no other issues or concerns today. Patient has increased sensation from the carpal tunnel release no fevers chills constitutional symptoms. Ortho Exam Right Wrist/Hand Skin/Wound: Yes healing Contralateral Normal: Yes A1 steph trigger: No Motor: EPL: 5, FDP-2: 5, 1st Dorsal Interosseous: 5, APB: 5 Sensation: Radial: I, Ulnar: I, Median: I WRIST: Patient has a dorsal mid forearm skin tear about 3 cm in length well-healing no signs of infection, stiffness at the MP joints but full range of motion of her PIP and DIPs Assessment AND Plan Plan discussed to get Range of motion of MP joints OT rx given, patient states that shes not sure if she has to pay for her own occupational therapy so she will have her partner do it in the house after she washes dishes just instructed and showed how to do it is visibly at the MP joint she is ill stiff however her PIP and DIPs are fine. Follow-up in 1 month with either myself or matter sooner if there is any increase issues or any concerns She does have a skin tear from the dressing the draping however it is well-healed there is no signs of infection instructed to continue using bacitracin ointment This note was generated with Microstaqation software. It may contain incorrect words, spelling, and punctuation that were not noted in checking the note before signing. Coding Level of Care Code Global Post Op 04/08/18 1015 <Electronically signed by Haleigh Marte DO> Date Haleigh Marte DO Cosigner Signature: Date (if applicable) CC: OPERATIVE REPORT Observed: 03/26/2018 Status: F Source: [place] 9:25 AM [facility] Medical Records Department [address] [place] [address] Operative Report 03/26/18 0923 MR#: [id number] Acct: [id number] Name: CHITRA GRIFFITH Rep #: [id number] : 1940 77 From: Haleigh Marte DO PCP: Tito BLOOM,[employer] Status: REG SD Y Location: [place] [address] Report of Operation Date of Procedure: 03/26/18 Pre-Operative Diagnosis: right carpal tunnel syndrome Post-Operative Diagnosis: same Surgery/Procedure Performed:: right carpal tunnel release Type of Anesthesia:: Hang Moore Anesthesiologist: Otis Pitt Estimated Blood Loss (mL): none Fluids Replaced: 500cc lr Description of Procedure: Preoperative note Patient is a 77 year old patient with nerve conduction study confirming carpal tunnel syndrome. Patient failed conservative treatment for her carpal tunnel elected proceed with right carpal tunnel release. emg confirm severe right carpal tunnel. Risks benefits and alternatives surgery discussed with patient. Risks including but not limited to blood loss, blood clot, infection, neurovascular injury, failure procedure, loss of life and loss of limb. Patient is aware like proceed with right carpal tunnel release. Operative note Patient seen and examined preoperative holding area. right hand was marked. History and physical and consent reviewed. Patient was brought to the operating room placed supine on the operating table. Sign in, anesthesia, antibiotics were administered. right upper extremity was prepped and draped after [place] block was initiated. All bony prominences well-padded SCDs placed on bilateral lower extremities. We marked out our incisions for our carpal tunnel release at the intersection of Cameron's line in the fourth ray flexed. We extended about a centimeter and a half. Timeout was performed. We then checked ensure that the Hang block was working with pickups which it was not so we performed a local block of 10cc 1% lidocaine. We then used a 15 blade to make a skin incision. We then dissected down tenotomy syllable of the transverse carpal ligament. We then used a new 15 blade cut through the transverse carpal ligament down to the level of the median nerve. We then further released the median nerve the combination of the 15 blade and tenotomies. The nerve was grayish in color and adherent to the transverse carpal ligament volarly. We released the transverse carpal ligament distally to the fat pad and then proximally under standard technique. We then palpated to ensure that we released all of the transverse carpal ligament which we did. We irrigated the incision with copious amounts of sterile saline. All bleeders were coagulated. The incision was closed with interrupted 4-0 nylon stitches. Tourniquet was deflated for total working time of 8 minutes. Patient tolerated procedure well there were no complications. Patient transferred to recovery room in stable condition. Postoperative note Hospital pharmacy has prescription Leave dressing clean dry and intact Follow-up in 2 weeks Call with concerns This note was generated with Microstaqation software. It may contain incorrect words, spelling, and punctuation that were not noted in checking the note before signing 03/26/18 0925 <Electronically signed by Haleigh Marte DO> Date Haleigh Marte DO CC: Haleigh Marte DO; Amor Francis MD Signed DISCHARGE INSTRUCTION Observed: 03/26/2018 Status: F Source: [place] 9:24 AM [facility] Medical Records Department [address] [place] [address] Instructions for Home/Discharge Instructions 03/26/18 0923 MR#: [id number] Acct: [id number] Name: CHITRA GRIFFITH Rep #: [id number] : 1940 77 From: Haleigh Marte DO PCP: Tito BLOOM,Amor Aldridge Status: REG VAC Discharge Diet: No Restrictions - leave dressing in place until seen in postop visit, call with concerns, move and use hand as tolerated, keep dressing clean and dry Discharge Activity: May Not Drive May shower in (days): 1 Ice area for (Minutes): 20 - Every hour while awake. Weight Bearing Status: Weight bearing as tolerated Keep extremity elevated above heart level: Operative Extremity Call your doctor if your incision/area has: Continuous Slow Oozing, Sudden Increased Bleeding, Increased Pain/ Swelling, Increased Redness, Foul Smelling Discharge Call your doctor if you observe: Fever of 101 or Higher, Coldness, Increased Pain, Numbness or Tingling, Change in Color, Calf discomfort Allergies/Adverse Reactions: Allergies CARDIOLITE Allergy (Severe, Uncoded 03/19/18 08:21) Other HIVES AND DROP IN BP Medications to take at Discharge Levothyroxine Sodium [Levoxyl] 75 mcg PO DAILY 11/18/13 Lorazepam [Ativan] 0.5 mg PO TID PRN PRN 11/18/13 Ascorbic Acid [Vitamin C] 500 mg PO DAILY 03/19/18 Cholecalciferol (Vitamin D3) [Vitamin D3] 1,000 unit PO DAILY 03/19/18 Vitamin B Complex 1 each PO DAILY 03/19/18 Acetaminophen/Codeine #3 [Tylenol #3 Tablet] 1 - 2 tablet PO Q6H PRN PRN 5 Days #20 tablet 03/26/18 The following prescriptions were given: Acetaminophen/Codeine #3 [Tylenol #3 Tablet] 1 - 2 tablet PO Q6H PRN PRN 5 Days #20 tablet PRN Reason: Pain Primary Care Physician: Amor Francis Chi, MD [Primary Care Provider] - Test Results: Test results from this visit will be discussed in further detail at your follow-up appointment, if applicable. Please Follow Up With: Haleigh Marte DO - [phone] 03/26/18 0923 <Electronically signed by Haleigh Marte DO> Date Haleigh Marte DO CC: Amor Francis MD ORTHOPEDIC VISIT Observed: 03/12/2018 Status: F Source: [place] REPORT 11:[address] [facility] Orthopaedics AND Sports Medicine [address] [place] [address] OFFICE VISIT Date of Service: 03/11/18 MR#: [id number] Acct: [id number] Name: CHITRA GRIFFITH Rep #: [id number] : 1940 Provider: MARY Rodriguez Age/Sex: 77/F Location[place] [facility] [place] Status: Signed Intake Intake Visit Reasons: right hand Is patient in pain?: Yes Allergies CARDIOLITE Allergy (Severe, Uncoded 10/24/17 07:47) Other Medications Levothyroxine Sodium [Levoxyl] 75 mcg PO DAILY 11/18/13 [History Confirmed 02/25/18] Lorazepam [Ativan] 0.5 mg PO TID PRN PRN 11/18/13 [History Confirmed 02/25/18] PFSH Social History Smoking Status: Current every day smoker HPI right hand: Details: CHITRA GRIFFITH is a 77 year old F here today for increased weakness in the right hand from carpal tunnel. 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 ROS Musc Reports as per HPI, Reports muscle weakness, Reports joint pain Ortho Exam Right Wrist/Hand Skin/Wound: No Swelling, No Ecchymosis Contralateral Normal: Yes Right Wrist: Yes ROM-Extension 0-60, ROM-Flexion 0-80, Durken's Test, ROM-Pronation 0-80 and ROM-Supination 0-90; no Snuffbox tenderness Sensation: Radial: I, Ulnar: I, Median: I WRIST: Patient does have a positive Durken's test today in office. Sensation otherwise is intact as is her ROM. There is minimal atrophy of the thenar eminance. Left Wrist/Hand Skin/Wound: No Swelling, No Ecchymosis Assessment AND Plan Problems 1. Right carpal tunnel syndrome G56.01 Plan Patient was contemplating surgery previously and would to proceed with surgery for carpal tunnel release. We discussed the procedure, its recovery process, as well as the risk and benefits. All of her questions were answered and consent was signed in office today to start the scheduling process. She is to notify the office with any concerns or questions int he mean time. Otherwise she will follow-up post-operatively. Coding Level of Care Code Off vis,est,level 3 Diagnoses Right carpal tunnel syndrome G56.01 03/12/18 1154 <Electronically signed by Aureliano HERNANDEZ> Date Aureliano HERNANDEZ Cosigner Signature: Date (if applicable) CC: ORTHOPEDIC VISIT Observed: 02/25/2018 Status: F Source: [place] REPORT 2:11 PM [facility] Orthopaedics AND Sports Medicine [address] [place] [address] OFFICE VISIT Date of Service: 02/25/18 MR#: [id number] Acct: [id number] Name: CHITRA GRIFFITH Rep #: [id number] : 1940 Provider: Haleigh Marte DO Age/Sex: 77/F Location: [facility] [place] Status: Signed Intake Intake Visit Reasons: right hand Chief Complaint: CORTISOL STIM TEST Is patient in pain?: Yes Allergies CARDIOLITE Allergy (Severe, Uncoded 10/24/17 07:47) Other Medications Levothyroxine Sodium [Levoxyl] 75 mcg PO DAILY 11/18/13 [History Confirmed 02/25/18] Lorazepam [Ativan] 0.5 mg PO TID PRN PRN 11/18/13 [History Confirmed 02/25/18] [facility] Social History Smoking Status: Current every day smoker HPI right hand: Details: CHITRA GRIFFITH is a 77 year old F here today for a followup after her EMG of her upper extremity. Patient notes that her numbness has improved since she had her injections. Her injection was on 12/24/17. Patient complains of achiness from her wrist into arm. She has tried multiple braces which are somewhat helpful. 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 She is left hand dominant. Her EMG is here for review. ROS Const Reports system reviewed and no additional complaints, except as docu Eyes Reports system reviewed and no additional complaints, except as docu ENT Reports system reviewed and no additional complaints, except as docu Card Reports system reviewed and no additional complaints, except as docu Resp Reports system reviewed and no additional complaints, except as docu GI Reports system reviewed and no additional complaints, except as docu Reports system reviewed and no additional complaints, except as docu Musc Reports joint pain, Reports muscle weakness Skin/Breast Reports system reviewed and no additional complaints, except as docu Neuro Yes system reviewed and no additional complaints, except as docu Psych Reports system reviewed and no additional complaints, except as docu Endo Reports system reviewed and no additional complaints, except as docu Ortho Exam Right Wrist/Hand Skin/Wound: Yes CDI Contralateral Normal: Yes A1 steph trigger: No Right Wrist: Yes ROM-Extension 0-60, ROM-Supination 0-90, ROM-Flexion 0-80 and ROM-Pronation 0-80; no Durken's Test Sensation: Radial: I, Ulnar: I, Median: I Assessment AND Plan 1. Right carpal tunnel syndrome G56.01 Plan Personally reviewed EMG and explained that she has mild carpal tunnel, we can treat conservatively until she begins to have greater weakness or the injections do not aid in relief. Reviewed the surgical procedure to release the ligament and the post op restrictions today as well. Continue B complex. Follow up in 6wks for either an injection or consent or sooner if pain, swelling, numbness or associated symptoms, or concerns develop. All questions answered. Patient in agreement of plan. Coding Level of Care Code Off vis,est,level 3 Diagnoses Right carpal tunnel syndrome G56.01 02/25/18 1411 <Electronically signed by Haleigh Marte DO> Date Haleigh Marte DO Cosigner Signature: Date (if applicable) CC: NCS AND/OR EMG Observed: 02/05/2018 Status: F Source: [place] PATIENT 3:26 PM [facility] Pulmonary Services/Neurology [address] [place] [address] MR#: [id number] Acct: [id number] Name: CHITRA GRIFFITH Rep #: [id number] : 1940 77 From: Sasha Calvillo MD Referring Dr: Haleigh Marte DO Status: REG CLI Ordering Dr: Date: Location: [facility] Sex: F C NCS and/or EMG Patient Report Ordering Doctor: Haleigh Marte DATE OF SERVICE: 02/05/18 Chitra Griffith is a 77-year-old female presents for elective diagnostic testing of the right upper limb. Shorts numbness and tingling in the right hand, worse over the last several months. Letter diagnostic findings: The right median motor nerve demonstrates prolonged distal latency with normal amplitude and reduced conduction velocity. Normal right ulnar motor response. Normal right median and ulnar f wave. Prolonged right median sensory distal latency. Needle EMG testing shows no evidence of denervation with normal motor unit action potentials. [place] diagnostic impression: This is an abnormal study in the right upper limb. 1. Electrodiagnostic findings demonstrate right-sided median mononeuropathy. This is consistent with a mild right carpal tunnel syndrome. If there are any further questions, please do not hesitate to contact [place] 02/05/18 0232 <Electronically signed by Sasha Calvillo MD> Date Sasha Calvillo MD CC: Haleigh Marte DO; Sasha Calvillo; Amor Francis MD Date Dictated: 02/05/18 1322 Date Transcribed: 02/05/181321 Geodetic Engineer: RINA Signed ORTHOPEDIC VISIT Observed: 12/24/2017 Status: F Source: [place] REPORT 1:30 PM [facility] Orthopaedics AND Sports Medicine [address] [place] [address] [address] [place] [address] OFFICE VISIT Date of Service: 12/24/17 MR#: [id number] Acct: [id number] Name: CHITRA GRIFFITH Rep #: [id number] : 1940 Provider: Haleigh Marte DO Age/Sex: 77/F Location: [facility] [place] Status: Signed Intake Intake Visit Reasons: right hand Is patient in pain?: Yes Allergies CARDIOLITE Allergy (Severe, Uncoded 10/24/17 07:47) Other Medications Levothyroxine Sodium [Levoxyl] 75 mcg PO DAILY 11/18/13 [History Confirmed 10/24/17] Lorazepam [Ativan] 0.5 mg PO TID PRN PRN 11/18/13 [History Confirmed 10/24/17] PFSH Social History Smoking Status: Current every day smoker HPI right hand: Details: CHITRA GRIFFITH is a 77 year old F here today for right hand pain. She states that she is left hand dominant. Patient has had right hand pain for many months. She complains of numbness into her thumb, index and middle finger. She notes that she has hand stiffness. She denies any swelling. Patient complains of an achiness into her thumb and wrist, elbow and shoulder. She describes a shooting pain up her arm. Patient has worn a wrist brace and elbow strap which is not helpful. She denies any weakness. Patient denies any cervical spine pain. She denies any xrays or MRI, or injections. ROS Const Reports system reviewed and no additional complaints, except as docu Eyes Reports system reviewed and no additional complaints, except as docu ENT Reports system reviewed and no additional complaints, except as docu Card Reports system reviewed and no additional complaints, except as docu Resp Reports system reviewed and no additional complaints, except as docu GI Reports system reviewed and no additional complaints, except as docu Reports system reviewed and no additional complaints, except as docu Musc Reports joint pain, Reports stiffness Skin/Breast Reports system reviewed and no additional complaints, except as docu Neuro Yes system reviewed and no additional complaints, except as docu Psych Reports system reviewed and no additional complaints, except as docu Endo Reports system reviewed and no additional complaints, except as docu Ortho Exam Right Wrist/Hand Contralateral Normal: Yes A1 steph trigger: Yes (thumb) Right Wrist: Yes Durken's Test WRIST: thenar atrophy Assessment AND Plan 1. Trigger thumb, right thumb M65.311 Plan Reviewed her increased pain and she has carpal tunnel signs and a trigger thumb. We will treat with injections today. Instructed her to call in a week if she is not having any relief. Use the arm and hand normally. Ordered an EMG today. Obtained consent for injection. Under sterile conditions, injected the patients right A1 at thumb and carpal tunnel with combo of 1/2cc kenalog and 1cc bupivacaine each. The patient tolerated the injection well without any noted complication. Patient should call our office if redness develops, pain worsens or if they have any concerns. Follow up as needed or sooner if pain, swelling, numbness or associated symptoms, or concerns develop. All questions answered. Patient in agreement of plan. 2. Right carpal tunnel syndrome G56.01 3. Radiculopathy affecting upper extremity M54.10 Orders Orders: Plan Detail Other Orders Orders: Other Medications New: Coding Level of Care Code Off vis,est,level 4 Diagnoses Trigger thumb, right thumb M65.311 Right carpal tunnel syndrome G56.01 Radiculopathy affecting upper extremity M54.10 12/24/17 1330 <Electronically signed by Haleigh Marte DO> Date Haleigh Marte DO Cosigner Signature: Date (if applicable) CC: CERV SPINE 4 OR 5 Observed: 12/24/2017 Status: F Source: [place] VIEWS 9:52 AM [facility] Imaging Services [address] [place] [address] Cerv Spine 4 or 5 Views MR#: [id number] Acct: [id number] Name: CHITRA GRIFFITH Rep #: [id number] : 1940 F 77 From: Mani Champagne MD PCP: Tito BLOOM,Amor Aldridge Status: REG CLI Study: Cerv Spine 4 or 5 Views Date of Exam: 12/24/17 Exam# [id number] Ordering Dr: Haleigh Marte DO STUDY: X-RAY - CERVICAL SPINE REASON FOR EXAM: Female, 77 years old. Right shoulder pain. TECHNIQUE: 5 view(s) of the cervical spine were obtained. COMPARISON: None FINDINGS: There is generalized osteopenia. Normal anterior atlantoaxial articulation. Normal odontoid process. Normal cervical lordosis. Normal vertebral bodies and endplates. There is intervertebral disc space narrowing at C3-4 to C6-7 with osteophyte formation most marked at C3-4 and C6-7. There is anterior bony neural foraminal encroachment at C5-6 and C6-7 on the right and C3- 4, C4-5 and C5-6 on the left. There is diffuse uncovertebral and facet sclerosis. The soft tissue structures are unremarkable. RAD/Cerv Spine 4 or 5 Views IMPRESSION: Osteopenia with moderate cervical spondylosis as described. Electronically Signed: Main Champagne MD at 17:59 EDT , Service support , CC: Haleigh Marte DO; Amor Francis MD Geodetic Engineer: Signed WRIST MIN 3 VIEWS Observed: 12/24/2017 Status: F Source: [place] 9:52 AM [facility] Imaging Services [address] [place] [address] Wrist min 3 Views MR#: [id number] Acct: [id number] Name: CHITRA GRIFFITH Rep #: [id number] : 1940 F 77 From: Mani Champagne MD PCP: Amor Francis MD, Chi Status: REG CLI Study: Wrist min 3 Views Date of Exam: 12/24/17 Exam# [id number] Ordering Dr: Haleigh Marte DO STUDY: X-RAY - RIGHT WRIST REASON FOR EXAM: Female, 77 years old. Atraumatic right wrist pain. TECHNIQUE: 3 view(s) of the wrist were obtained. COMPARISON: None. FINDINGS: There is generalized osteopenia. Normal visualized distal radius and ulna. Normal radiocarpal articulation. Normal distal radioulnar articulation. Normal carpal bones. There is moderate arthrosis of the radial carpal row. There is osteoarthrosis of the first carpometacarpal joint. Normal second through fifth carpometacarpal articulations. Normal visualized metacarpal bones. The soft tissue structures are unremarkable. RAD/Wrist min 3 Views IMPRESSION: Osteopenia with osteoarthritic changes as described. Electronically Signed: Mani Champagne MD at 18:00 EDT , Service support , CC: Haleigh Marte DO; Amor Francis MD Geodetic Engineer: Signed LIPID PROFILE Collected: 10/24/2017 Status: F Source: [place] 10:29 AM [facility] TYPE CODE TESTS RESULT OUT OF RANGE REFERENCE UNITS LAB L501.4900 200 mg/dL High CHOL 251 Result Comment: <200 mg/dL Desirable 200-240 mg/dL Borderline >240 mg/dL High Risk LAB L501.5000 mg/dL Normal TRIG 117 Result Comment: The drugs N-Acetylcysteine and Metamizole may falsely depress this assay. Serum Triglycerides Reference Interval Normal <150 mg/dL Borderline high 150 - 199 mg/dL High 200 - 499 mg/dL Very High > or = 500 mg/dL LAB L501.6400 mg/dL Normal HDL 51 Result Comment: The drugs N-Acetylcysteine and Metamizole may falsely depress this assay. Reference Range HDL <40 mg/dL Low HDL Cholesterol HDL >or= 60 mg/dL High HDL Cholesterol LAB L501.6500 0-130 mg/dL High LDL 177 LAB L501.6600 5-40 mg/dL Normal VLDL 23 Performed By: #### L500.4100 #### [facility] [address] [place], [address] VITAMIN D,25 HYDROXY Collected: 10/24/2017 Status: F Source: [place] 10:29 AM [facility] TYPE CODE TESTS RESULT OUT OF REFERENCE UNITS RANGE LAB L506.1000 29.95-100.01 ng/mL Low Vitamin D 20.2 25-OH Result Comment: Vitamin D 25(OH) Status Range Deficiency <20 ng/mL (50nmol/L) Insuffciency 20 - 30 ng/mL (50 - 75 nmol/L) Sufficiency 30 - 100 ng/mL (75 - 250 nmol/L) Toxicity >100 ng/mL (>250 nmol/L) Performed By: #### L506.1000 #### [facility] [address] [place], [address] CORTISOL SERUM Collected: 10/24/2017 Status: F Source: [place] 8:48 AM [facility] Order Comment: BASELINE OR POST MEDICATION STIMULATION?: 60 Min Post MED Stimulati Time Medication Given: 0750 TYPE CODE TESTS RESULT OUT OF REFERENCE UNITS RANGE LAB L509.6000 3.09-22.40 ug/dL High CORTISOL 37.80 Result Comment: Adult (AM) 4.30 - 22.40 ug/dL Adult (PM) 3.09 - 16.66 ug/dL Performed By: #### L509.6000 #### [facility] [address] [place], [address] CORTISOL SERUM Collected: 10/24/2017 Status: F Source: [place] 8:18 AM [facility] Order Comment: BASELINE OR POST MEDICATION STIMULATION?: 30 Min Post MED Stimulati Time Medication Given: 0750 TYPE CODE TESTS RESULT OUT OF REFERENCE UNITS RANGE LAB L509.6000 3.09-22.40 ug/dL High CORTISOL 29.70 Result Comment: Adult (AM) 4.30 - 22.40 ug/dL Adult (PM) 3.09 - 16.66 ug/dL Performed By: #### L509.6000 #### [facility] [address] [place], [address] CORTISOL SERUM Collected: 10/24/2017 Status: F Source: [place] 7:25 AM [facility] TYPE CODE TESTS RESULT OUT OF RANGE REFERENCE UNITS LAB L509.6000 3.09-22.40 ug/dL Normal CORTISOL 22.40 Result Comment: Adult (AM) 4.30 - 22.40 ug/dL Adult (PM) 3.09 - 16.66 ug/dL Performed By: #### L509.6000 #### [facility] [address] [place], [address] MRA NECK WITH AND W/O Observed: 10/15/2017 Status: F Source: [place] CONTRAST 10:34 AM [facility] Imaging Services [address] [place] [address] MRA Neck WITH and W/O Contrast MR#: [id number] Acct: [id number] Name: CHITRA GRIFFITH Rep #: [id number] : 1940 F 77 From: Tretn Peterson MD PCP: Tito BLOOM,Amor Aldridge Status: REG CLI Study: MRA Neck WITH and W/O Contrast Date of Exam: 10/15/17 Exam# [id number] Ordering Dr: Amor Francis MD STUDY: MRA NECK WITH AND WITHOUT CONTRAST REASON FOR EXAM: Female, 77 years old. Weakness. TIA. TECHNIQUE: 3-D exbr-um-jtzjcu (TOF) imaging was performed in an 1.5 T MRI scanner. 6 ml of Gadavist was administered for the contrast enhanced images. COMPARISON: None. FINDINGS: RIGHT CAROTID ARTERIES: Normal right common carotid artery (CCA). Normal right common carotid bulb. Normal origin of the right internal carotid (ICA) artery without a hemodynamically significant stenosis. Normal visualized cervical portion of the right internal carotid artery. Normal origin of the right external carotid artery (ECA). LEFT CAROTID ARTERIES: Normal left common carotid artery (CCA). Normal left common carotid bulb. Normal origin of the left internal carotid (ICA) artery without a hemodynamically significant stenosis. Normal visualized cervical portion of the left internal carotid artery. Normal origin of the left external carotid artery (ECA). VERTEBRAL ARTERIES: Normal antegrade flow within the bilateral vertebral artery without a hemodynamically significant stenosis. MRI/MRA Neck WITH and W/O Contrast IMPRESSION: 1. Normal bilateral cervical carotid and vertebral arteries. 2. Widely patent aortic arch and origins of the great vessels. Electronically Signed: Trent Peterson MD at 16:14 EDT , Service support , CC: Amor Francis MD Geodetic Engineer: Signed MRA HEAD ONLY WITHOUT Observed: 10/15/2017 Status: F Source: [place] CONTRAST 10:25 AM [facility] Imaging Services [address] [place] [address] MRA Head ONLY without Contrast MR#: [id number] Acct: [id number] Name: CHITRA GRIFFITH Rep #: [id number] : 1940 F 77 From: Trent Peterson MD PCP: Amor rFancis MD, Chi Status: REG CLI Study: MRA Head ONLY without Contrast Date of Exam: 10/15/17 Exam# [id number] Ordering Dr: Amor Francis MD STUDY: MRA OF THE HEAD WITHOUT CONTRAST REASON FOR EXAM: Female, 77 years old. Weakness. TIA. Tremors. TECHNIQUE: 3-D wnoy-pl-hqvuje (TOF) imaging was performed with MIPs. The study was performed unenhanced. COMPARISON: None. FINDINGS: Normal bilateral petrous carotid arteries. Normal right cavernous carotid artery with a normal supraclinoid bifurcation. Normal left cavernous carotid artery with a normal supraclinoid bifurcation. Normal right A1 segment of the anterior cerebral artery. Normal left A1 segment of the anterior cerebral artery. Normal intact anterior communicating artery (ACOM). Normal bilateral A2 segments of the anterior cerebral arteries. Normal right M1 and M2 segments of the middle cerebral arteries, with a normal M1 bifurcation. Normal left M1 and M2 segments of the middle cerebral arteries, with a normal M1 bifurcation. Normal right posterior communicating artery (PCOM). origin of the left BODY STRAIGHTENER of the left internal carotid artery rather than and widely patent left posterior communicating artery (PCOM). Normal bilateral vertebral arteries. The left vertebral artery is dominant. Normal basilar artery with a normal basilar bifurcation. The visualized bilateral superior cerebellar (SCA) arteries are normal. 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 Normal right P1 ,, bilateral P2 and visualized bilateral P3 segments of the posterior cerebral arteries. There is no demonstrated aneurysm of the [place]. There is no major vessel occlusion or hemodynamically significant stenosis. There is no demonstrated abnormality of the visualized brain. MRI/MRA Head ONLY without Contrast IMPRESSION: Normal MRA of the head Electronically Signed: Trent Peterson MD at 16:12 EDT , Service support , CC: Amor Francis MD Geodetic Engineer: Signed BRAIN WITHOUT Observed: 10/15/2017 Status: F Source: [place] CONTRAST 10:25 AM [facility] Imaging Services [address] [place], [place] [address] [address] Brain without Contrast MR#: [id number] Acct: [id number] Name: GRIFFITHCHITRA Rep #: [id number] : 1940 F 77 From: Devon Das PCP: Tito BLOOM,Amor Aldrideg Status: REG CLI Study: Brain without Contrast Date of Exam: 10/15/17 Exam# [id number] Ordering Dr: Amor Francis MD STUDY: MRI BRAIN WITHOUT CONTRAST REASON FOR EXAM: Female, 77 years old. Weakness TECHNIQUE: Standardized multiplanar fat and water weighted pulse sequences were obtained. COMPARISON: CT dated October 11, 2017 FINDINGS: Normal size of the ventricles and extra-axial spaces for the patient's age. There is minimal deep white matter ischemic gliosis or chronic nature. There is no evidence for recent intracranial ischemia or other cause of cytotoxic edema on diffusion weighted imaging (DWI). Normal bilateral basal ganglia. Normal thalami. There is no extra-axial fluid accumulation. Normal flow voids within the major intracranial circulation suggesting patency by spin echo criteria. Normal sella turcica, pituitary gland, infundibular stalk, optic chiasm and hypothalamus. Normal tectal plate and pineal gland. Normal midbrain, avery and medulla. Normal cerebellum. Normal basal cisterns. Normal bilateral temporal bones. Normal bilateral internal auditory canals. No demonstrated orbital abnormality, within the constraints of a routine brain study. Normal visualized paranasal sinuses. Normal calvarium and skull base. Normal visualized soft tissue structures. Normal visualized upper cervical spine. MRI/Brain without Contrast IMPRESSION: There is age-appropriate involutional and ischemic change. There is NO acute ischemic event. There is NO hemorrhage, edema, mass, mass effect or midline shift. Electronically Signed: Devon Das MD at 1:42 EDT , Service support , CC: Amor Francis MD Geodetic Engineer: Signed Observed: 10/11/2017 Status: F Source: [place] CULTURE, URINE 12:24 PM [facility] RE[facility] Urine Culture Culture exhibits no growth. Performed By: #### M100.0650 #### [facility] [address] [place], [address] BRAIN/HEAD WITHOUT Observed: 10/11/2017 Status: F Source: [place] CONTRAST 12:16 PM [facility] RE[facility] Imaging Services [address] [place] [address] Brain/Head without Contrast MR#: [id number] Acct: [id number] Name: CHITRA GRIFFITH Rep #: [id number] : 1940 F 77 From: Vinh Olivia MD PCP: Amor Francis MD, Chi Status: REG CLI Study: Brain/Head without Contrast Date of Exam: 10/11/17 Exam# [id number] Ordering Dr: Amor Francis MD STUDY: CT BRAIN WITHOUT CONTRAST REASON FOR EXAM: Female, 77 years old. Generalized weakness. RADIATION DOSAGE (If Supplied By Facility): CTDIvol = ( 44.99 ) mGy, DLP = ( 779.24 ) mGycm TECHNIQUE: Transaxial CT imaging of the brain was performed without administration of intravenous contrast material. Individualized dose optimization techniques were used for this CT. COMPARISON: Comparison is made with prior study dated August 31, 2017. FINDINGS: Normal soft tissue structures. Normal calvarium. There is mild cerebral atrophy with widening of the extra- axial spaces and ventricular dilatation. Normal white matter tracts of the cerebral hemispheres. Normal basal ganglia and thalami. Normal brainstem. Normal cerebellum. There is no intracranial hemorrhage. There are no findings of an acute ischemic infarction. Atherosclerotic calcification of the vertebral arteries and cavernous portions of the internal carotid arteries bilaterally. Normal visualized paranasal sinuses. CT/Brain/Head without Contrast IMPRESSION: Chronic involutional changes of the brain. Electronically Signed: Vinh Olivia MD at 12:34 EDT Tel [phone], Service support , CC: Amor Francis MD Geodetic Engineer: Signed ERYTHROCYTE SED RATE Collected: 10/11/2017 Status: F Source: [place] 12:04 PM [facility] TYPE CODE TESTS RESULT OUT OF RANGE REFERENCE UNITS LAB L102.0000 0-30 mm/hr Normal SED RATE 4 Performed By: #### L101.9900, L100.0100 #### [facility] [address] [place], [place], [id number] CBC W/DIFF, AUTOMATED Collected: 10/11/2017 Status: F Source: [place] 12:04 [facility] REPOSITORY TYPE CODE TESTS RESULT OUT OF RANGE REFERENCE UNITS LAB L100.1000 4.4-11.0 K/mm3 Normal WBC 6.0 LAB L100.1200 4.2-5.4 M/mm3 Normal RBC 4.87 LAB L100.1300 12.0-15.0 g/dl Normal HGB 13.9 LAB L100.1400 37-47 % Normal HCT 42.7 LAB L100.1500 81-99 fL Normal MCV 87.7 LAB L100.1600 27.0-32.0 pg Normal MCH 28.5 LAB L100.1700 32-36 g/gl Normal MCHC 32.6 LAB L100.1810 11.6-14.6 % Normal RDW CV 13.7 LAB L100.1820 35.1-43.9 fl High RDW SD 44.2 LAB L100.1900 150-450 K/mm3 Normal PLT 307 LAB L100.2000 6.2-12.0 fl Normal MPV 11.2 LAB L100.2100 47-70 % Normal NEUT% 63.9 LAB L100.2200 19-41 % Normal LY% 24.8 LAB L100.2300 0-10 % Normal MONO% 8.4 LAB L100.2400 0-5 % Normal EO% 1.7 LAB L100.2500 0-1 % Normal BASO% 1.0 LAB L100.2550 0.0-0.9 % Normal IM GRAN % 0.200 Result Comment: IG% - Immature Granulocytes (promyelocytes, myelocytes and metamyelocytes) > 1% indicates that a LEFT SHIFT is Present. LAB L100.2620 2.0-7.7 X10 3/uL Normal Absolute Neut 3.8 LAB L100.2720 0.83-4.51 X10 3/ul Normal Absolute Lymph 1.48 Performed By: #### L101.9900, L100.0100 #### [facility] [address] [place], [address] COMPREHENSIVE METABOLIC Collected: 10/11/2017 Status: F Source: [place] [facility] 12:04 PM [facility] TYPE CODE TESTS RESULT OUT OF RANGE REFERENCE UNITS LAB L501.0100 74-106 mg/dL Normal GLU 87 Result Comment: Please note revised GLUCOSE reference range effective 2017. LAB L501.1000 7-18 mg/dL Normal BUN 11 LAB L501.1100 0.55-1.02 mg/dL Normal CREAT,SERUM 0.70 Result Comment: The validity of the calculated GFR AND GFRAA in patients over 70 years has not been determined. Clinical correlation is essential. LAB L501.1110 >60 mL/min Normal EST GFR 86 Result Comment: Non- GFR Calc LAB L501.1115 >60 mL/min Normal EST GFR - AA 104 Result Comment: GFR Calc LAB L501.1300 10-20 RATIO Normal BUN/CRE 15.7 LAB L501.1500 6.4-8.2 g/dL T Normal PROT 7.2 LAB L501.1800 3.2-5.0 g/dL Normal ALB 4.0 LAB L501.1950 2.2-4.2 g/dL Normal GLOB 3.2 LAB L501.2000 0.9-2.4 RATIO Normal A/G 1.2 LAB L501.2200 8.5-10.1 mg/dL CA Normal 9.3 LAB L501.4100 15-37 U/L Normal AST 21 LAB L501.4305 45-117 U/L Normal ALK P 87 LAB L501.4405 13-56 U/L Normal ALT 25 LAB L501.4600 0.20-1.00 mg/dL T Normal BILI 0.40 LAB L501.5300 136-145 mmol/L NA Normal 143 LAB L501.5600 3.5-5.1 mmol/L K Normal 4.0 LAB L501.5900 98-107 mmol/L High CL 109 LAB L501.6100 21.0-32.0 mmol/L Normal CO2 23.0 LAB L501.6200 5-15 Normal GAP 11 Performed By: #### L500.4050, L501.6710, L501.9520 #### [facility] [address] [place], [address] CRP Collected: 10/11/2017 Status: F Source: [place] 12:04 PM [facility] RE[facility] TYPE CODE TESTS RESULT OUT OF RANGE REFERENCE UNITS LAB L501.6710 0.0-3.0 mg/L High 4.85 C-REACTIVE PROT Result Comment: C-Reactive Protein (CRP) provides useful information for the diagnosis, therapy and monitoring of inflammatory processes and associated diseases. For the evaluation of Relative Risk for Cardiovascular Disease, a High Sensitivity CRP (HSCRP) should be ordered. Performed By: #### L500.4050, L501.6710, L501.9520 #### [facility] [address] [place], [address] THYROID STIM HORMONE Collected: 10/11/2017 Status: F Source: [place] ([facility]) 12:04 PM [facility] TYPE CODE TESTS RESULT OUT OF RANGE REFERENCE UNITS LAB L501.9520 0.358-3.74 uIU/mL Low TSH 0.32 Performed By: #### L500.4050, L501.6710, L501.9520 #### [facility] [address] [place], [address] DISCHARGE SUMMARY Observed: 09/02/2017 Status: F Source: [place] 9:12 PM [facility] Medical Records Department [address] [place] [address] Discharge Summary 09/01/17 1159 MR#: [id number] Acct: [id number] Name: CHITRA GRIFFITH ANN Rep #: [id number] : 1940 77 From: Fiona Weeks MD PCP: Tito BLOOM,Amor Aldridge Status: DIS MELVIN Y Location: MS3 [id number] Discharge Date and Diagnosis Date of Admission: 08/31/17 Date of Discharge: 09/01/17 - Primary Discharge Diagnosis Active and Suspected Problems Intractable vertigo (Acute) - Secondary Discharge Diagnosis Chronic Problems Hyperlipidemia (Chronic) M ni re's disease (Chronic) Polymyalgia rheumatica (Chronic) Essential tremor (Chronic) Hypothyroidism (Chronic) Hospital Course and Treatment Imaging Results: Laboratory Tests WBC 7.5 6.0 WBC RBC Hgb Hct MCV MCH MCHC RDW RDW Differential Plt Count MPV Immature Gran % (Auto) Neut % (Auto) Diagnostic Data Brain CT 08/31/17 03:58 IMPRESSION: No acute intracranial abnormality. No significant change from the prior study. If further imaging is limited warranted recommend MRI. Electronically Signed: Sung Lee MD at 5:04 EDT , Service support , Operations: None Procedures: None Summary of Care Provided: Patient is [id number] female with a past medical history of M ni re's disease who was admitted with a three-day complaint of dizziness with associated nausea and vomiting and aggravated by movement. She was managed for intractable vertigo likely due to Meniere's disease. Symptoms resolved with administration of Meclizine and zofran, as well as IVF. She stabilised, and was discharged home on 09/01/17, to follow up with her PCP and ENT doctor. Discharge Diet: Low fat/ Low Cholesterol Discharge Activity: Return to Normal Activity May resume sexual activity in: No Restrictions Weight Bearing Status: Weight bearing as tolerated Call your doctor if you observe: Dizziness, Fainting spells Home Medications: Medications to take at Discharge Cholecalciferol (Vitamin D3) [Vitamin D3] 5,000 unit PO DAILY 11/18/13 Levothyroxine Sodium [Levoxyl] 75 mcg PO DAILY 11/18/13 Lorazepam [Ativan] 0.5 mg PO TID PRN PRN 11/18/13 Pravastatin [Pravachol] 80 mg PO QHS 11/18/13 Prednisone 5 mg PO DAILY 08/31/17 Primidone [Mysoline] 100 mg PO QHS 08/31/17 Primary Care Physician: Amor Francis Chi, MD [Primary Care Provider] - Please follow up with your Primary Care Physician in: one week When: Please follow up with your ENT doctor in one week Patient Instructions: Understanding Dizziness, Balance Problems, and Fainting, The Inner Ear: Understanding the Balance System, Managing Dizziness (Vertigo) with Medications, Dizziness (Vertigo) and Balance Problems: Ensuring Your Safety Disposition: Home Minutes spent on discharge:: 20 Patient Condition:: Good Medical Necessity - Tobacco Use Smoking Status: Current every day smoker Meaningful Use Info Meaningful Use Diagnoses (Choose all that apply): None applicable Code Visit Inpatient E AND M: 45748 Disch Hosp 09/01/17 1810 <Electronically signed by Fiona Weeks MD> Date Fiona Weeks MD 09/02/172111<Electronically signed by Amor Francis MD> Cosigner Signature (if applicable): Date Amor Francis MD CC: Fiona Weeks MD; Amor Francis MD Signed DISCHARGE INSTRUCTION Observed: 09/01/2017 Status: F Source: [place] 11:59 AM [facility] Medical Records Department [address] [place] [address] Instructions for Home/Discharge Instructions 09/01/17 1155 MR#: [id number] Acct: [id number] Name: CHITRA GRIFFITH ANN Rep #: [id number] : 1940 77 From: Fiona Weeks MD PCP: Amor Francis MD, Chi Status: ADM MELVIN - Discharge Diagnoses Current Active Problems: Current Active and Chronic Problems Intractable vertigo (Acute) Hyperlipidemia (Chronic) M ni re's disease (Chronic) Polymyalgia rheumatica (Chronic) Essential tremor (Chronic) Hypothyroidism (Chronic) You will use the following diet at home:: Cardiac Your food should be the consistency of: Regular Your liquids should be the consistency of: Regular/Thin Discharge Activity: Return to Normal Activity May resume sexual activity in: No Restrictions Weight Bearing Status: Weight bearing as tolerated Instructions: Managing Dizziness (Vertigo) with Medications, Dizziness (Vertigo) and Balance Problems: Ensuring Your Safety, Understanding Dizziness, Balance Problems, and Fainting, The Inner Ear: Understanding the Balance System Allergies/Adverse Reactions: Allergies CARDIOLITE Allergy (Uncoded 08/31/17 03:57) Other Medications to take at Discharge Cholecalciferol (Vitamin D3) [Vitamin D3] 5,000 unit PO DAILY 11/18/13 Levothyroxine Sodium [Levoxyl] 75 mcg PO DAILY 11/18/13 Lorazepam [Ativan] 0.5 mg PO TID PRN PRN 11/18/13 Pravastatin [Pravachol] 80 mg PO QHS 11/18/13 Prednisone 5 mg PO DAILY 08/31/17 Primidone [Mysoline] 100 mg PO QHS 08/31/17 Primary Care Physician: Amor Francis Chi, MD [Primary Care Provider] - Please follow up with your Primary Care Physician in: one week When: Please follow up with your ENT doctor in one week Proposed Discharge Date: 09/01/17 09/01/17 1159 <Electronically signed by Fiona Weeks MD> Date Fiona Weeks MD CC: Amor Francis MD BASIC METABOLIC Collected: 09/01/2017 Status: F Source: [place] PROFILE (BMP) 6:05 AM [facility] REPOS[facility] TYPE CODE TESTS RESULT OUT OF RANGE REFERENCE UNITS LAB L501.0100 74-106 mg/dL Normal GLU 87 Result Comment: Please note revised GLUCOSE reference range effective 2017. LAB L501.1000 7-18 mg/dL Normal BUN 9 LAB L501.1100 0.55-1.02 mg/dL Normal CREAT,SERUM 0.74 Result Comment: The validity of the calculated GFR AND GFRAA in patients over 70 years has not been determined. Clinical correlation is essential. LAB L501.1110 >60 mL/min Normal EST GFR 81 Result Comment: Non- GFR Calc LAB L501.1115 >60 mL/min Normal EST GFR - AA 98 Result Comment: GFR Calc LAB L501.1255 ml/min Normal Estimated CRCL 44.85 LAB L501.1300 10-20 RATIO Normal BUN/CRE 12.2 LAB L501.2200 8.5-10 mg/dL Low .1 CA 8.4 LAB L501.5300 136-14 mmol/L Normal 5 NA 145 LAB L501.5600 3.5-5. mmol/L Normal 1 K 4.1 LAB L501.5900 98-107 mmol/L High CL 114 LAB L501.6100 21.0-3 mmol/L Normal 2.0 CO2 24.0 LAB L501.6200 5-15 Normal GAP 7 Performed By: #### L500.2500 #### [facility] [address] [place], [address] CBC W/DIFF, AUTOMATED Collected: 09/01/2017 Status: F Source: [place] 6:05 AM [facility] TYPE CODE TESTS RESULT OUT OF RANGE REFERENCE UNITS LAB L100.1000 4.4-11.0 K/mm3 Normal WBC 6.0 LAB L100.1200 4.2-5.4 M/mm3 Normal RBC 4.31 LAB L100.1300 12.0-15.0 g/dl Normal HGB 12.3 LAB L100.1400 37-47 % Normal HCT 37.9 LAB L100.1500 81-99 fL Normal MCV 87.9 LAB L100.1600 27.0-32.0 pg Normal MCH 28.5 LAB L100.1700 32-36 g/gl Normal MCHC 32.5 LAB L100.1810 11.6-14.6 % Normal RDW CV 13.6 LAB L100.1820 35.1-43.9 fl Normal RDW SD 43.3 LAB L100.1900 150-450 K/mm3 Normal PLT 228 LAB L100.2000 6.2-12.0 fl Normal MPV 11.1 LAB L100.2100 47-70 % Normal NEUT% 59.5 LAB L100.2200 19-41 % Normal LY% 28.0 LAB L100.2300 0-10 % High MONO% 10.3 LAB L100.2400 0-5 % Normal EO% 1.0 LAB L100.2500 0-1 % Normal BASO% 1.0 LAB L100.2550 0.0-0.9 % Normal IM GRAN % 0.200 Result Comment: IG% - Immature Granulocytes (promyelocytes, myelocytes and metamyelocytes) > 1% indicates that a LEFT SHIFT is Present. LAB L100.2620 2.0-7.7 X10 3/uL Normal Absolute Neut 3.6 LAB L100.2720 0.83-4.51 X10 3/ul Normal Absolute Lymph 1.68 Performed By: #### L100.0100 #### [facility] [address] [place], [address] HISTORY AND PHYSICAL Observed: 08/31/2017 Status: F Source: [place] EXAM 6:23 AM [facility] Medical Records Department [address] [place] [address] History and Physical 08/31/17 0615 MR#: [id number] Acct: [id number] Name: CHITRA GRIFFITH Rep #: [id number] : 1940 77 From: Rene Ng MD PCP: Tito BLOOM,Amor Aldridge Status: ADM MELVIN Y Location: [address] Problem List (1) Intractable vertigo Status: Acute (2) Hyperlipidemia Status: Chronic (3) M ni re's disease Status: Chronic (4) Polymyalgia rheumatica Status: Chronic (5) Essential tremor Status: Chronic (6) Hypothyroidism Status: Chronic History of Present Illness Date of Admission: 08/31/17 Chief Complaint: Dizziness. The patient is a 77 year old F with past medical history as mentioned above presented to the emergency room because of dizziness. Her symptoms started 3 days ago with dizziness, described as spinning sensation, has been progressive over the last 3 days and today, got more worse, associated with intractable nausea and vomiting, aggravated by movement, no relieving factors and no other associated symptoms. She has a history of M ni re's disease and she has been following up with ENT as outpatient. She denies fever or chills. Denied ear pain, discharge or change of her hearing. Denies focal arm or leg weakness. Denies numbness or tingling. She denied chest pain or shortness of breath. In the emergency room, she was afebrile, blood pressure was borderline and she maintained her pulse ox on room air. Her routine blood work was unremarkable. CT scan brain showed no acute findings. She received IV fluids, Antivert, Valium and Zofran without significant improvement. She is not able to ambulate. She is being admitted for intractable vertigo. 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 Denies: Anorexia, Chills, Fever Eyes: Reports: Blurred vision. Denies: Double vision, Drainage, Redness HEENT: Denies: Difficulty Hearing, Ear Pain, Eye Pain, Nasal Congestion, Sore Throat Cardiovascular: Reports: Light Headedness. Denies: Chest Pain, Chest Pressure, Chest Tightness, Edema, Heaviness, Orthopnea, Palpitations, Paroxysmal Noc. Dyspnea, Syncope Respiratory: Denies: Cough, Hemoptysis, Pleuritic Pain, Shortness of Breath, Sputum production, Wheezing Gastrointestinal: Reports: Nausea, Vomiting. Denies: Abdominal Pain, Constipation, Diarrhea Genitourinary: Denies: Dysuria, Frequency, Hematuria Musculoskeletal: Denies: Arm Pain, Back Pain, Foot Pain Skin: Denies: Dryness, Rash Neurological: Reports: Headaches. Denies: Balance problems, Double vision, Change in Speech, Slurred speech, Confusion, Focal weakness, Incoordination, Numbness, Tingling Psychiatric: Denies: Anxiety, Depression Endocrine: Denies: Change in Body Habitus, Polydipsia VTE Information - Inpt Only VTE Present on Admission: No VTE Mechan Device Prophylaxis: None VTE Pharm Prophylaxis ordered?: Yes Patient Problems: Active and Suspected Problems Intractable vertigo (Acute) - Physical Exam General: Alert, Oriented x3, Cooperative, No apparent distress HEENT: Atraumatic, PERRLA, EOMI Oral: Moist Mucosa, No Gingival or Mucosal Lesions/ Ulcerations Neck: Supple, No JVD, Negative Carotid Bruits, Trachea Midline, Thyroid Normal Size and Texture Lungs: Clear to auscultation, No rhonchi, No wheeze, No rales, Diminished Cardiovascular: Regular rate, Regular Rhythm, Normal S1, Normal S2, No murmurs Abdomen: Bowel Sounds Present, Soft, Non Tender, Non-Distended, No Hepato-splenomegaly Extremities: No clubbing, No cyanosis, No edema Skin: No rashes, No breakdown Lymphatic: No Cervical, Supraclavicular, or Inguinal Adenopathy Neurological: Cranial nerves II-XII grossly intact, Motor Exam 5/5 strength throughout Psych/Mental Status: Normal Affect, Appropriate, Alert and oriented to time, place, person, mood and affect Vital Signs Temp Pulse Resp BP Pulse Ox 97.9 F 69 18 113/51 L 98 08/31/17 03:55 08/31/17 06:14 08/31/17 06:14 08/31/17 06:14 08/31/17 06:14 Oxygen Delivery Method Room Air Weight: 117 lb 11.629 oz Body Mass Index (BMI) 18.4 Laboratory Tests Past 24 Hrs WBC 7.5 RBC 5.10 Hgb 14.5 Hct 44.4 MCV 87.1 MCH 28.4 Clinical Impression(s) from Imaging Studies Brain CT 08/31/17 03:58 IMPRESSION: No acute intracranial abnormality. No significant change from the prior study. If further imaging is limited warranted recommend MRI. Electronically Signed: Sung Lee MD at 5:04 EDT , Service support , Assessment/Plan Active and Suspected Problems Intractable vertigo (Acute) This is a 77 years old female patient presented to the emergency room because of dizziness with spinning sensation in context of history of M ni re's disease, received IV fluids, IV Zofran, Antivert and Valium in the ER without improvement and she is being admitted for intractable vertigo #1 intractable vertigo: In context of history of M ni re's disease with previous episodes of vertigo. CT scan brain without acute findings. At this time, blood pressure is borderline. Routine blood work was unremarkable. Plan: Admit to [facility] floor for observation, cardiac monitoring, IV fluids, IV Zofran as needed, IV Phenergan, Antivert as needed, Valium as needed, PT OT evaluation and treatment, orthostatic vitals #2 hypothyroidism: Continue levothyroxine. #3 polymyalgia rheumatica: Continue prednisone. #4 hyperlipidemia: Continue statins. #5 essential tremors: Continue primidone. #6 DVT prophylaxis: Subcu Lovenox. This note was generated with [employer] Ar[employer] dictation software. It may contain incorrect words, spelling, and punctuation that were not noted in checking the note before signing. Code Visit OBSV E AND M: [id number] Initial observation care L3 08/31/17 0623 <Electronically signed by Rene Ng MD> Date Rene Ng MD Cosigner Signature: Date (if applicable) CC: Rene Ng; Amor Francis MD Signed EMERGENCY DEPARTMENT Observed: 08/31/2017 Status: F Source: [place] SUMMARY 6:01 AM [facility] RE[facility] Medical Records Department [address] [place] [address] Emergency Department Summary 08/31/17 0359 MR#: [id number] Acct: [id number] Name: CHITRA GRIFFITH Rep #: [id number] : 1940 77 From: Jorge Pulliam MD PCP: Amor Francis MD, Chi Status: REG ER - ER Visit Summary Date of Service: 08/31/17 Chief Complaint: Dizziness History of Present Illness: The patient is a 77 F who complains of dizziness. She has had this for the past 5 days. Patient has a history of M ni re's. This was diagnosed by Dr. López with ENT a few years ago. She has been trying Dramamine at home which has not helped. Usually this does help with her symptoms. She denies a fever, headache or chest pain. She has had some nausea without any vomiting. She denies any falls or head trauma. Physical Examination: Vital signs reviewed. HEENT exam unremarkable. Does have cerumen in the right external ear canal. Heart is regular rate and rhythm without murmurs. Lungs are clear to auscultation. Abdomen is soft and nontender. Extremities reveal no edema. Skin exam normal. Neurologic exam normal. Test Results: Laboratory studies are normal. CAT scan of the head reveals no acute findings Emergency Department Course and Treatment: The patient was given IV fluids, Zofran and Antivert. When I reevaluated her she was still having severe dizziness. I then gave her Valium p.o. Upon reevaluation she still cannot move out of the lying position. At this point feel the patient should be admitted for further medications as well as possible physical therapy. Patient was discussed with the hospitalist for admission Treatment Plan: [] Disposition: Admit Impression: Intractable vertigo This note was generated with Red Aril dictation software. It may contain incorrect words, spelling, and punctuation that were not noted in review of the chart prior to signing ED Disposition - Plan for ED Patient: Chief Complaint: Dizziness Referrals: Amor Francis Chi, MD [Primary Care Provider] - What to do if you have Problems For any increased pain, shortness of breath, bleeding, nausea or vomiting, chest pain, or any unexpected problems, contact your Primary Care Provider. Call [facility] ([phone]) or report to the closest Emergency Room. Call 911 if necessary. 08/31/17 0601 <Electronically signed by Jorge Pulliam MD> Date Jorge Pulliam MD Cosigner Signature (If Indicated): Date CC: Amor Francis MD CBC W/DIFF, AUTOMATED Collected: 08/31/2017 Status: F Source: HIGINIO 4:10 AM [facility] REPOSITORY TYPE CODE TESTS RESULT OUT OF RANGE REFERENCE UNITS LAB L100.1000 4.4-11.0 K/mm3 Normal WBC 7.5 LAB L100.1200 4.2-5.4 M/mm3 Normal RBC 5.10 LAB L100.1300 12.0-15.0 g/dl Normal HGB 14.5 LAB L100.1400 37-47 % Normal HCT 44.4 LAB L100.1500 81-99 fL Normal MCV 87.1 LAB L100.1600 27.0-32.0 pg Normal MCH 28.4 LAB L100.1700 32-36 g/gl Normal MCHC 32.7 LAB L100.1810 11.6-14.6 % Normal RDW CV 13.5 LAB L100.1820 35.1-43.9 fl Normal RDW SD 43.1 LAB L100.1900 150-450 K/mm3 Normal PLT 269 LAB L100.2000 6.2-12.0 fl Normal MPV 10.8 LAB L100.2100 47-70 % Normal NEUT% 69.3 LAB L100.2200 19-41 % Normal LY% 23.1 LAB L100.2300 0-10 % Normal MONO% 6.1 LAB L100.2400 0-5 % Normal EO% 0.9 LAB L100.2500 0-1 % Normal BASO% 0.5 LAB L100.2550 0.0-0.9 % Normal IM GRAN % 0.100 Result Comment: IG% - Immature Granulocytes (promyelocytes, myelocytes and metamyelocytes) > 1% indicates that a LEFT SHIFT is Present. LAB L100.2620 2.0-7.7 X10 3/uL Normal Absolute Neut 5.2 LAB L100.2720 0.83-4.51 X10 3/ul Normal Absolute Lymph 1.74 Performed By: #### L100.0100 #### [facility] [place], [address] BASIC METABOLIC Collected: 08/31/2017 Status: F Source: HIGINIO PROFILE (BMP) 4:10 AM [facility] REPOSITORY TYPE CODE TESTS RESULT OUT OF RANGE REFERENCE UNITS LAB L501.0100 74-106 mg/dL Normal GLU 90 Result Comment: Please note revised GLUCOSE reference range effective 2017. LAB L501.1000 7-18 mg/dL Normal BUN 14 LAB L501.1100 0.55-1.02 mg/dL Normal CREAT,SERUM 0.88 Result Comment: The validity of the calculated GFR AND GFRAA in patients over 70 years has not been determined. Clinical correlation is essential. LAB L501.1110 >60 mL/min Normal EST GFR 66 Result Comment: Non- GFR Calc LAB L501.1115 >60 mL/min Normal EST GFR - AA 80 Result Comment: GFR Calc LAB L501.1255 ml/min Normal Estimated CRCL 45.13 LAB L501.1300 10-20 RATIO Normal BUN/CRE 16.0 LAB L501.2200 8.5-10 mg/dL Normal .1 CA 9.3 LAB L501.5300 136-14 mmol/L Normal 5 NA 142 LAB L501.5600 3.5-5. mmol/L Normal 1 K 3.7 LAB L501.5900 98-107 mmol/L Normal CL 106 LAB L501.6100 21.0-3 mmol/L Normal 2.0 CO2 26.0 LAB L501.6200 5-15 Normal GAP 10 Performed By: #### L500.2500 #### [facility] [address] [place], [address] BRAIN/HEAD WITHOUT Observed: 08/31/2017 Status: F Source: [place] CONTRAST 3:58 AM [facility] REPOSITORY [facility] Imaging Services [address] [place] [address] Brain/Head without Contrast MR#: [id number] Acct: [id number] Name: CHITRA GRIFFITH ANN Rep #: [id number] : 1940 F 77 From: Sung Lee PCP: Tito BLOOM,Amor Chi Status: REG ER Study: Brain/Head without Contrast Date of Exam: 08/31/17 Exam# [id number] Ordering Dr: Jorge Pulliam MD STUDY: CT BRAIN WITHOUT CONTRAST REASON FOR EXAM: Female, 77 years old. Persistent dizziness for several days worse tonight. History of Meniere's syndrome. RADIATION DOSAGE (If Supplied By Facility): CTDIvol = ( 44.99 ) mGy, DLP = ( 762.36 ) mGycm TECHNIQUE: Transaxial CT imaging of the brain was performed without administration of intravenous contrast material. Individualized dose optimization techniques were used for this CT. COMPARISON: November 18, 2013. FINDINGS: Normal soft tissue structures. Normal calvarium. Normal size ventricles and extra-axial spaces for the patient's age. Normal white matter tracts of the cerebral hemispheres. Normal basal ganglia and thalami. Normal brainstem. Normal cerebellum. There is no intracranial hemorrhage. There are no findings of an acute ischemic infarction. Normal visualized paranasal sinuses. Mastoid air cells well aerated. Appearance of the temporal bones not significantly changed on the images provided. CT/Brain/Head without Contrast IMPRESSION: No acute intracranial abnormality. No significant change from the prior study. If further imaging is limited warranted recommend MRI. Electronically Signed: Sung Lee MD at 5:04 EDT , Service support , CC: Jorge Pulliam MD; Amor Francis MD Geodetic Engineer: Signed ALLERGIES ALLERGIES DATE TYPE / CODE NAME / CODE REACTION SEVERITY SOURCE 03/19/2018 Miscellaneous CARDIOLITE Other SV [place] Allergy/[id number](S Pending Sale To [facility] NOMED CT) Hospital Repository ENCOUNTERS ENCOUNTERS ADMIT/DISCHARGE ACCOUNT ADMITTING ENCOUNTER LOCATION SOURCE NUMBER CLASS 05/06/2018/ [id number] Ambulatory BMSBuilding:B [place] 8 8 [facility] Repository 04/23/2018 [id number] Ambulatory [place]as[place] Be[place] 0 [facility] ing:LAB Repository 04/08/2018/ [id number] Ambulatory Higinio Beas[place] 8 2 [facility] ing:OT Repository 04/08/2018/ [id number] Ambulatory BMSBuilding:B Higin[place] 8 6 [facility] Repository 03/26/2018 [id number] Ambulatory BMSBuilding:B [place] 4 MS.CF.[facility] Repository 03/26/2018/ [id number] Ambulatory [place] Higinio 8 8 [facility] ing:SDCRoom: Repository AC08 03/11/2018/ [id number] Ambulatory BMSBuilding:B Higin[place] 8 2 [facility] Repository 02/25/2018/ [id number] Ambulatory BMSBuilding:B [place] 8 5 [facility] Repository 02/05/2018 [id number] Ambulatory Higinio Higinio 0 [facility] ing:PSN Repository 12/24/2017 [id number] Ambulatory Higinio Higinio 8 [facility] ing:HPRAD Repository 12/24/2017/ [id number] Ambulatory BMSBuilding:B Hig[place] 8 6 [facility] Repository 10/24/2017 [id number] Ambulatory [place] Higinio 3 [facility] ing:MEDOUTP Repository 10/15/2017 [id number] Ambulatory Higinio Beas[place] 5 [facility] ing:MRI Repository 10/11/2017 [id number] Ambulatory [place] Higinio 6 [facility] ing:CT Repository 08/31/2017/ [id number] [facility], Ambulatory Beas[place] Higinio 8 2 Ghasem [facility] ing:LA2Vynr: Repository CS075Fvk: 1 08/31/2017 [id number] [place], Ambulatory BMSBuilding:B Higinio 5 Ghasem [facility] Repository 08/31/2017 [id number] [facility], Ambulatory BMSBuilding:B [place] 0 [place]em [facility] Repository PAYERS PAYERS ENCOUNTER GUARANTOR PAYER SUBSCRIBER SOURCE 05/06/2018 JOHN NERI [place] Insurance:GORDON TYLER: [facility], MEDICARE PPOPolicy [id number] [address]Nea: Number: Repository [id number] (HP) Date:[id number] [address]YD: 05/06/2018 Secondary NOT GIVENUNK [place]as[place] Insurance:SELF PAY [facility] Number: Effective Repository Date:2018-05-05 04/23/2018 JOHN Solo Primary CHITRA Simmonsoster [id number] MAR[place] Insurance:HUMANA DAWSONDOB: Community [facility] [employer], MEDICARE PPOPolicy [id number] [place] [address]Lyb: Number: Repository [id number] (HP) Date:4053-33-80EN [address] [place] [address]BA: 04/23/2018 Secondary NOT GIVENUNK [place] Insurance:SELF PAY [facility] Number: Effective Repository Date:2018-04-23 04/08/2018 JOHN Solo Primary CHITRA Simmonsoster [id number] [place] Insurance:HUMANA DAWSONDOB: Community [facility], MEDICARE OPolicy [id number] [place] [address]Scv: Number: Repository [id number] (HP) Date:7813-88-91FC [address] [place] [address]MM: 04/08/2018 Secondary NOT GIVENUNK [place] Insurance:SELF PAY [facility] Number: Effective Repository Date:2018-04-08 04/08/2018 JOHN Solo Primary CHITRA Sylvester [id number] [place] Insurance:HUMANA DAWSONDOB: Community [employer], [id number] [place] [address]Bth: Number: Repository [id number] (HP) Date:9784-70-30RL [address] [place] [address]OE: 04/08/2018 Secondary NOT GIVENUNK Higinio Insurance:SELF PAY [facility] Number: Effective Repository Date:2018-03-12 03/26/2018 JOHN Solo Primary CHITRA Simmonsoster [id number] [place] Insurance:HUMANA DAWSONDOB: Community [employer], MEDICARE OPolicy [id number] [address]Xun: Number: Repository [id number] (HP) Date:9767-70-10LE [address] [place] [address]ET: 03/26/2018 Secondary NOT GIVENUNK [place] Insurance:SELF PAY [facility] Number: Effective Repository Date:2018-03-26 03/26/2018 JOHN Edil Primary CHITRA Pedraza Higinio [id number] [place] Insurance:HUMANA DAWSONDOB: Community [facility], MEDICARE PPOPolicy [id number] [place] [address]Vju: Number: Repository [id number] (HP) Date:7934-09-92EV [address] [address]SC: 03/26/2018 Secondary NOT GIVENUNK [place] Insurance:SELF PAY [facility] Number: Effective Repository Date:2018-03-12 03/11/2018 John Solo Primary CHITRA Pedraza Higin[place] [id number] [place] Insurance:HUMANA DAWSONDOB: [facility], MEDICARE OPolicy [id number] [place] [address]Wqy: Number: Repository [id number] (HP) Date:9968-72-14XD [address] [address]BV: 03/11/2018 Secondary NOT GIVENUNK Higinio Insurance:SELF PAY [facility] Number: Effective Repository Date:2018-03-11 02/25/2018 John Solo Primary CHITRA Pedraza [place] [id number] [place] Insurance:HUMANA DAWSONDOB: Community [place] [employer], MEDICARE OPolicy [id number] [place] [address]Hsn: Number: Repository [id number] (HP) Date:2389-33-78ZE [address] [address]IB: 02/25/2018 Secondary NOT GIVENUNK Higin[place] Insurance:SELF PAY [facility] Number: Effective Repository Date:2018-02-25 02/05/2018 John Solo Primary CHITRA Simmonsoster [id number] [place] Insurance:HUMANA DAWSONDOB: Community [place] [employer], MEDICARE [facility] [id number] [place] [address]Iis: Number: Repository [id number] (HP) Date:4725-21-58GX [address] [place] [address]KJ: 02/05/2018 Secondary NOT GIVENUNK Higinio Insurance:SELF PAY [facility] Number: Effective Repository Date:2017-12-25 12/24/2017 John Solo Primary CHITRA Pedraza [place] [id number] [place] Insurance:HUMANA DAWSONDOB: Community [place] [employer], MEDICARE [facility] [id number] [place] [address]Ywi: Number: Repository [id number] (HP) Date:4966-46-50HJ [address] [place] [address]SE: 12/24/2017 Secondary NOT GIVENUNK [place] Insurance:SELF PAY [facility] Number: Effective Repository Date:2017-12-24 12/24/2017 John Solo Primary CHITRA Sylvester [id number] [place] Insurance:HUMANA DAWSONDOB: Community [place] [employer], MEDICARE [facility] [id number] [place] [address]Tli: Number: Repository [id number] (HP) Date:0144-96-81ZA [address] [address]SW: 12/24/2017 Secondary NOT GIVENUNK [place] Insurance:SELF PAY [facility] Number: Effective Repository Date:2017-12-24 10/24/2017 John Solo Primary CHITRA Sylvester [id number] [place] Insurance:HUMANA DAWSONDOB: [facility] [place] [employer], MEDICARE [facility] [id number] [place] [address]Vsv: Number: Repository [id number] (HP) Date:4902-52-31QF [address] [place] [address]WP: 10/24/2017 Secondary NOT GIVENUNK Beas[place] Insurance:SELF PAY [facility] Number: Effective Repository Date:2017-10-23 10/15/2017 John Solo Primary CHITRA Sylvester [id number] [place] Insurance:HUMANA DAWSONDOB: [facility] [place], MEDICARE PPOPolicy [id number] [place] [address]Mru: Number: Repository [id number] (HP) Date:4192-92-89HU [address] [place] [address]MF: 10/15/2017 Secondary NOT GIVENUNK Higin[place] Insurance:SELF PAY [facility] Number: Effective Repository Date:2017-10-14 10/11/2017 John Solo Primary CHITRA Sylvester [id number] [place] Insurance:HUMANA DAWSONDOB: [facility] [place], MEDICARE PPOPolicy [id number] [place] [address]Fqh: Number: Repository [id number] (HP) Date:5310-62-38DY [address] [address]FB: 10/11/2017 Secondary NOT GIVENUNK Higinio Insurance:SELF PAY [facility] Number: Effective Repository Date:2017-10-11 08/31/2017 John Solo Primary CHITRA Sylvester [id number] [place] Insurance:HUMANA DAWSONDOB: [place], MEDICARE OPoly [id number] [place] [address]Sfv: Number: Repository [id number] (HP) Date:0617-26-49EM [address] [place] [address]GB: 08/31/2017 Secondary NOT GIVENUNK [place] Insurance:SELF PAY [facility] Number: Effective Repository Date:2017-08-31 08/31/2017 John Solo Primary CHITRA Sylvester [id number] [place] Insurance:HUMANA DAWSONDOB: [place], MEDICARE [facility] [id number] [place] [address]Zpd: Number: Repository [id number] () Date:9074-80-28CC [address] [place] [address]HM: 08/31/2017 Secondary NOT GIVENUNK Higin[place] Insurance:SELF PAY [facility] Number: Effective Repository Date:2017-08-31 08/31/2017 John Solo Primary DALEMYRIAM Neri [place] Insurance:GORDON GEEB: [facility], MEDICARE PPOPolicy [id number] [facility] [address]Zqt: Number: Repository [id number] () Date:5864-84-71CY [address] [place] [address]QY: 08/31/2017 Secondary NOT GIVENUNK [place] Insurance:SELF PAY [facility] Number: Effective Repository Date:2017-08-31
== END ==
PROVIDERS: Family Provider Family Medicine Geriatric Medicine; PCP Family Medicine Geriatric Medicine; Referring Provider Family Medicine Geriatric Medicine; Visit Provider Family Medicine Geriatric Medicine
DX: R53.83 Other fatigue (principal); E55.9 Vitamin D deficiency, unspecified
CPT/HCPCS: 36415; 80053; 82306; 84443; 85025

== ENCOUNTER → 2018-07-22 11:47 | Outpatient (CLI) | payer MEDICARE, SELFPAY ==
--- NOTE | 2018-07-22 11:51 | BI_ITS ---
MAMMOGRAPHY - BILATERAL SCREENING REASON FOR EXAM: Female, 78 years old. Routine annual screening examination. PERTINENT HISTORY: Aunt with breast cancer. TECHNIQUE: Digital bilateral breast sly (3D mammographic acquisition) in the CC and MLO projections. 2-D mediolateral oblique (MLO) and craniocaudad (CC) views of both breasts were obtained. CAD: Full Field Digital Mammography with Computer Added Detection was performed. COMPARISON: Comparison is made with prior study dated October 19, 2014 and April 28, 2012. FINDINGS: Breast Composition: There are scattered areas of fibroglandular density. There are no dominant masses or suspicious calcifications. No other significant abnormalities are identified. There has been no significant change since the prior study. BI/SCREENING MAMM (CAD), BILAT IMPRESSION: Stable bilateral screening mammogram. Yearly follow-up mammogram recommended. (A) ASSESSMENT CATEGORY: BIRADS Category 1: Negative. A letter regarding these results will be sent to the patient by the facility within 30 days. Approximately 10% of breast cancers are not detected by mammography. A normal mammogram should not delay biopsy of a clinically suspicious abnormality. [id number] Electronically Signed: Vinh Olivia, at 13:53 EST , Service support ,
== END ==
PROVIDERS: Family Provider Family Medicine; PCP Family Medicine; Referring Provider Family Medicine; Visit Provider Family Medicine
DX: Z12.31 Encounter for screening mammogram for malignant neoplasm of breast (principal)
CPT/HCPCS: 77063; 77067

== ENCOUNTER → 2018-12-23 10:33 | Outpatient (CLI) | payer MEDICARE, SELFPAY ==
[2018-08-22 14:58] VITALS: BMI 22.6
[2018-12-23 12:46] LABS: T4 Total, Thyroxin 13.9 ug/dL (4.8-13.9); Thyroid Stim Hormone (TSH) 1.49 uIU/mL (0.358-3.74)
== END ==
PROVIDERS: Family Provider Family Medicine; PCP Family Medicine; Referring Provider Family Medicine; Visit Provider Family Medicine
DX: E03.9 Hypothyroidism, unspecified (principal)
CPT/HCPCS: 36415; 84436; 84443

== ENCOUNTER → 2019-07-20 | Outpatient (CLI) | payer MEDICARE, SELFPAY ==
[2018-08-22 14:58] VITALS: BMI 22.6
[2019-07-20 17:29] LABS: Absolute Lymphocyte Count 1.25 X10^3/uL (0.83-4.51); Absolute Neutrophil Count 7.6 X10^3/uL (2.0-7.7); Eosinophil# 0.07 X10^3/uL; Eosinophils% 0.7 % (0-5); Hematocrit 43.1 % (37-47); Hemoglobin 13.5 g/dL (12.0-15.0); Lymphocyte # 1.25 X10^3/ul (4.0); Lymphocyte % 12.9 % (19-41); Mean Corp Hgb Conc 31.3 g/dL (32-36); Mean Corpuscular Hgb 28.9 pg (27.0-32.0); Mean Corpuscular Volume 92.3 fL (81-99); Mean Platelet Vol. 11.4 fl (6.2-12.0); Monocyte# 0.57 X10^3/uL; Monocyte% 5.9 % (0-10); NRBC Flagged by Analyzer 0 % (0-5); Neutrophil % 78.8 % (47-70); Platelet Count 300 K/mm3 (150-450); RBC Distribution Width CV 13.2 % (11.6-14.6); Red Blood Count 4.67 M/mm3 (4.2-5.4); White Blood Count 9.7 K/mm3 (4.4-11.0)
[2019-07-20 17:48] LABS: ALB/GLOB Ratio 1.3 RATIO (0.9-2.4); AST(SGOT) 15 U/L (15-37); Alanine Aminotransfer ALT/SGPT 25 U/L (13-56); Albumin, Serum 4.1 g/dL (3.2-5.0); Alkaline Phosphatase 71 U/L (45-117); Anion Gap 5 (5-15); BUN 15 mg/dL (7-18); Calcium,Total 9.9 mg/dL (8.5-10.1); Chloride 110 mmol/L (98-107); Creatinine, Serum 0.94 mg/dL (0.55-1.02); EST Glomerular Filtration Rate 61 mL/min (>60); Est Glom Filt Rate - Afr Amer 74 mL/min (>60); Globulin 3.1 g/dL (2.2-4.2); Glucose 91 mg/dL (74-106); Potassium 4.2 mmol/L (3.5-5.1); Protein, Total 7.2 g/dL (6.4-8.2); Sodium Level 143 mmol/L (136-145); Thyroid Stim Hormone (TSH) 0.81 uIU/mL (0.358-3.74)
== END | disposition home or self-care (01) ==
PROVIDERS: PCP Family Medicine; Referring Provider Family Medicine; Visit Provider Family Medicine
DX: R42 Dizziness and giddiness (principal)
CPT/HCPCS: 36415; 80053; 84443; 85025

== ENCOUNTER → 2019-08-24 | Outpatient (CLI) | payer MEDICARE, SELFPAY ==
[2019-08-05 13:01] VITALS: BMI 22.6
--- NOTE | 2019-08-24 15:44 | RAD_ITS ---
STUDY: X-RAY - PARANASAL SINUSES REASON FOR EXAM: Female, 79 years old. CHRONIC SINUS PRESSURE, BILATERALLY TECHNIQUE: 4 view(s) of the paranasal sinuses were obtained. COMPARISON: None. FINDINGS: Normal visualized frontal, maxillary, ethmoidal and sphenoid sinuses. Normal visualized facial bones. The soft tissue structures are unremarkable. RAD/Sinuses min 3 Views IMPRESSION: Normal x-rays of the paranasal sinuses. Electronically Signed: Jackie Chung MD at 0:48 EDT , Service support ,
--- NOTE | 2019-08-24 15:44 | RAD_ITS ---
STUDY: X-RAY CHEST REASON FOR EXAM: Female, 79 years old. CHRONIC COUGH, UNPRODUCTIVE TECHNIQUE: Single AP portable view of the chest. COMPARISON: None. FINDINGS: The lungs are clear and expanded. There is no demonstrated pleural abnormality. Normal size heart. Normal mediastinum and marie. Normal visualized pulmonary arteries. Normal visualized aortic arch and descending thoracic aorta. There is demineralization of the osseous structures. There is degenerative osteoarthritis of the bilateral shoulders. There is no demonstrated abnormality of the visualized soft tissue structures of the upper abdomen. RAD/Chest PA and Lateral IMPRESSION: Normal x-ray examination of the chest for age. Electronically Signed: Jackie Chung MD at 0:42 EDT , Service support ,
[2019-08-24 17:25] LABS: Absolute Lymphocyte Count 1.66 X10^3/uL (0.83-4.51); Basophil# 0.11 X10^3/uL; Basophil% 0.9 % (0-1); Eosinophil# 0.15 X10^3/uL; Eosinophils% 1.3 % (0-5); Hemoglobin 13.6 g/dL (12.0-15.0); Lymphocyte # 1.66 X10^3/ul (4.0); Lymphocyte % 13.9 % (19-41); Mean Corp Hgb Conc 32.4 g/dL (32-36); Mean Corpuscular Hgb 29.9 pg (27.0-32.0); Mean Corpuscular Volume 92.3 fL (81-99); Monocyte# 0.96 X10^3/uL; NRBC Flagged by Analyzer 0 % (0-5); Neutrophil % 75.4 % (47-70); Platelet Count 341 K/mm3 (150-450); RBC Distribution Width CV 13.8 % (11.6-14.6); RBC Distribution Width SD 46.1 fl (35.1-43.9); Red Blood Count 4.55 M/mm3 (4.2-5.4); White Blood Count 11.9 K/mm3 (4.4-11.0)
[2019-08-24 17:39] LABS: ALB/GLOB Ratio 1.2 RATIO (0.9-2.4); AST(SGOT) 17 U/L (15-37); Alanine Aminotransfer ALT/SGPT 25 U/L (13-56); Albumin, Serum 4.2 g/dL (3.2-5.0); Alkaline Phosphatase 76 U/L (45-117); Anion Gap 6 (5-15); BUN 15 mg/dL (7-18); BUN/Creat Ratio 16.3 RATIO (10-20); CRP 3.08 mg/L (0.0-3.0); Calcium,Total 9.5 mg/dL (8.5-10.1); Chloride 105 mmol/L (98-107); Creatinine, Serum 0.92 mg/dL (0.55-1.02); EST Glomerular Filtration Rate 63 mL/min (>60); Est Glom Filt Rate - Afr Amer 76 mL/min (>60); Globulin 3.5 g/dL (2.2-4.2); Glucose 113 mg/dL (74-106); Potassium 3.6 mmol/L (3.5-5.1); Protein, Total 7.7 g/dL (6.4-8.2); Sodium Level 140 mmol/L (136-145)
== END | disposition home or self-care (01) ==
LOC: MTLAB 15:42
PROVIDERS: PCP Family Medicine; Referring Provider Family Medicine; Visit Provider Family Medicine
DX: R05 Cough (principal)
CPT/HCPCS: 36415; 70220; 71046; 80053; 85025; 86140

== ENCOUNTER → 2019-08-27 | Outpatient (CLI) | payer MEDICARE, SELFPAY ==
[2019-08-05 13:01] VITALS: BMI 22.6
== END | disposition home or self-care (01) ==
PROVIDERS: Visit Provider Family Medicine
DX: R05 Cough (principal)
CPT/HCPCS: 87015; 87070; 87077; 87101; 87106; 87116; 87205; 87206

== ENCOUNTER → 2019-12-09 | Outpatient (CLI) | payer MEDICARE, SELFPAY ==
[2019-08-05 13:01] VITALS: BMI 22.6
--- NOTE | 2019-12-09 12:12 | RAD_ITS ---
STUDY: X-RAY - RIGHT SHOULDER REASON FOR EXAM: Pain for 2 days, no specific injury. TECHNIQUE: 4 view(s) of the shoulder. COMPARISON: None. FINDINGS: There is a small marginal osteophyte of the medial humeral head. There is acromioclavicular arthrosis. Normal acromion. Normal humeral head and visualized proximal humerus. The soft tissue structures are unremarkable. Normal visualized pulmonary apex. RAD/Shoulder min 2 Views IMPRESSION: Acromioclavicular arthrosis. Small marginal osteophyte of the humeral head. Electronically Signed: Benji Anthony MD at 14:21 EDT Tel , Service support ,
== END | disposition home or self-care (01) ==
PROVIDERS: PCP Family Medicine; Referring Provider Nurse Practitioner Adult Health; Visit Provider Nurse Practitioner Adult Health
DX: M25.511 Pain in right shoulder (principal)
CPT/HCPCS: 73030

== ENCOUNTER → 2019-12-23 | Outpatient (CLI) | payer MEDICARE, SELFPAY ==
[2019-08-05 13:01] VITALS: BMI 22.6
[2019-12-23 12:52] LABS: T4 Total, Thyroxin 14.7 ug/dL (4.8-13.9); Thyroid Stim Hormone (TSH) 0.65 uIU/mL (0.358-3.74)
== END | disposition home or self-care (01) ==
LOC: MFPLAB 10:39
PROVIDERS: PCP Family Medicine; Referring Provider Family Medicine; Visit Provider Family Medicine
DX: E03.9 Hypothyroidism, unspecified (principal)
CPT/HCPCS: 36415; 84436; 84443

== ENCOUNTER → 2020-01-08 | Outpatient (CLI) | payer MEDICARE, SELFPAY ==
[2019-08-05 13:01] VITALS: BMI 22.6
--- NOTE | 2020-01-08 10:52 | BI_ITS ---
MAMMOGRAPHY - BILATERAL SCREENING REASON FOR EXAM: Female, 79 years old. Routine annual screening examination. PERTINENT HISTORY: Aunt with breast cancer. TECHNIQUE: Digital bilateral breast tiffanie (3D mammographic acquisition) in the CC and MLO projections. 2-D mediolateral oblique (MLO) and craniocaudad (CC) views of both breasts were obtained. CAD: Full Field Digital Mammography with Computer Added Detection was performed. COMPARISON: Comparison is made with prior study dated 07/22/2018 and 10/19/2014. FINDINGS: Breast Composition: There are scattered areas of fibroglandular density. There are no dominant masses or suspicious calcifications. No other significant abnormalities are identified. There has been no significant change since the prior study. BI/SCREEN MAMM (CAD) W/TIFFANIE BILAT IMPRESSION: Stable bilateral screening mammogram. Yearly follow-up mammogram recommended. (A) ASSESSMENT CATEGORY: BIRADS Category 1: Negative. A letter regarding these results will be sent to the patient by the facility within 30 days. Approximately 10% of breast cancers are not detected by mammography. A normal mammogram should not delay biopsy of a clinically suspicious abnormality. [id number] Electronically Signed: Vinh Olivia, at 13:01 EDT , Service support ,
== END | disposition home or self-care (01) ==
LOC: OPBI 10:51
PROVIDERS: PCP Family Medicine; Referring Provider Family Medicine; Visit Provider Family Medicine
DX: Z12.31 Encounter for screening mammogram for malignant neoplasm of breast (principal)
CPT/HCPCS: 77063; 77067

== ENCOUNTER → 2021-04-04 12:02 | Outpatient (CLI) | payer MEDICARE, SELFPAY ==
--- NOTE | 2021-04-04 12:11 | RAD_ITS ---
STUDY: X-RAY CHEST REASON FOR EXAM: Female, 80 years old. MALAISE AND FATIGUE TECHNIQUE: PA and lateral views of the chest. COMPARISON: 08/24/2019 FINDINGS: The lungs are clear and expanded. There is no demonstrated pleural abnormality. Normal size heart. Normal mediastinum and marie. Normal visualized pulmonary arteries. There is atherosclerotic calcification of the aortic arch with tortuosity. Normal visualized thoracic spine. Normal visualized ribs, clavicles, and shoulders. There is no demonstrated abnormality of the visualized soft tissue structures of the upper abdomen. RAD/Chest PA and Lateral IMPRESSION: No acute pulmonary process Electronically Signed: Lg Bernstein MD at 17:03 EST , Service support ,
[2021-04-04 15:03] LABS: Absolute Lymphocyte Count 1.46 X10^3/uL (0.83-4.51); Basophil# 0.09 X10^3/uL; Basophil% 1.4 % (0-1); Eosinophil# 0.16 X10^3/uL; Eosinophils% 2.5 % (0-5); Hematocrit 42.2 % (37-47); Hemoglobin 13.8 g/dL (12.0-15.0); Lymphocyte # 1.46 X10^3/ul (0.83-4.51); Mean Corp Hgb Conc 32.7 g/dL (32-36); Mean Corpuscular Hgb 29.2 pg (27.0-32.0); Mean Corpuscular Volume 89.4 fL (81-99); Mean Platelet Vol. 11.7 fl (6.2-12.0); Monocyte# 0.65 X10^3/uL; Monocyte% 10.3 % (0-10); NRBC Flagged by Analyzer 0 % (0-5); Neutrophil # 3.96 X10^3/uL (2.7-7.7); Neutrophil % 62.5 % (47-70); Platelet Count 302 K/mm3 (150-450); RBC Distribution Width CV 12.7 % (11.6-14.6); Red Blood Count 4.72 M/mm3 (4.2-5.4); White Blood Count 6.3 K/mm3 (4.4-11.0)
[2021-04-04 15:10] LABS: Erythrocyte Sedimentation Rate 15 mm/hr (0-30)
[2021-04-04 15:31] LABS: ALB/GLOB Ratio 1.1 RATIO (0.9-2.4); AST(SGOT) 15 U/L (15-37); Alanine Aminotransfer ALT/SGPT 22 U/L (13-56); Albumin, Serum 3.8 g/dL (3.2-5.0); Alkaline Phosphatase 90 U/L (45-117); Anion Gap 4 (5-15); BUN 10 mg/dL (7-18); BUN/Creat Ratio 11.6 RATIO (10-20); Calcium,Total 9.8 mg/dL (8.5-10.1); Chloride 108 mmol/L (98-107); Creatinine, Serum 0.86 mg/dL (0.55-1.02); EST Glomerular Filtration Rate 67 mL/min (>60); Est Glom Filt Rate - Afr Amer 82 mL/min (>60); Globulin 3.4 g/dL (2.2-4.2); Glucose 90 mg/dL (74-106); Potassium 4.4 mmol/L (3.5-5.1); Protein, Total 7.2 g/dL (6.4-8.2); Sodium Level 139 mmol/L (136-145); Thyroid Stim Hormone (TSH) 0.97 uIU/mL (0.358-3.74)
== END ==
PROVIDERS: PCP Family Medicine; Referring Provider Family Medicine; Visit Provider Family Medicine
DX: R53.81 Other malaise (principal); R53.83 Other fatigue
CPT/HCPCS: 36415; 71046; 80053; 84443; 85025; 85652

== ENCOUNTER → 2021-04-17 15:36 | Outpatient (CLI) | payer MEDICARE, SELFPAY ==
--- NOTE | 2021-04-17 15:38 | CT_ITS ---
STUDY: CT ABDOMEN WITH CONTRAST REASON FOR EXAM: Female, 80 years old. jaundice, early satiety RADIATION DOSAGE (If Supplied By Facility): CTDIvol = ( 13.75 ) mGy, DLP = ( 369.57 ) mGycm TECHNIQUE: Transaxial images were obtained post I.V. administration of 100 mL Isovue-300, and with oral contrast. Sagittal and coronal images were reconstructed. Individualized dose optimization techniques were used for this CT. COMPARISON: None. FINDINGS: The visualized lung bases are unremarkable. The visualized portions of the heart are within normal limits. Normal attenuation of the liver. No hepatic masses. No intrahepatic bile duct dilation. Normal gallbladder and extrahepatic biliary system. Normal spleen. Normal pancreas. Normal bilateral adrenal glands. Bilateral nonenhancing simple cysts measure up to 4.6 cm on the left side. No required imaging follow-up needed given high likelihood of benign nature. No solid/suspicious renal lesions. No hydronephrosis. Relative distention of the stomach with ingested oral contrast. Some passage of contrast into the distal small bowel. No discrete gastric outlet or duodenal wall thickening/mass. No periduodenal stranding. Normal small intestine. Normal colon. There is non-visualization of the appendix. Mild atherosclerosis of the abdominal aorta and iliac arteries. Normal inferior vena cava. Normal retroperitoneum. Normal abdominal wall. Normal osseous structures. CT/Abdomen WITH IV Contrast IMPRESSION: 1. Gastric distention with residual oral contrast. No CT evidence of gastric outlet obstruction. Query gastroparesis. 2. No hepatic masses or biliary dilation. Electronically Signed: Kev Bland MD (Brooks) at 7:42 EST , Service support ,
== END ==
PROVIDERS: PCP Family Medicine; Referring Provider Family Medicine; Visit Provider Family Medicine
DX: R68.81 Early satiety (principal)
CPT/HCPCS: 74160; Q9967

== ENCOUNTER 2021-05-23 10:49 | Day surgery (SDC) | payer MEDICARE, SELFPAY ==
--- NOTE | 2021-05-23 | IMM_PTH ---
PATIENT: CHITRA DUMONT LOC: EN U#:[id number] AGE/SX: 80/F ROOM: RE05/23/[address]: Dr. Nitish Gates DO : 1940 BED: DIS: 05/23/2021 SPEC #: [id number] RECD: 05/25/21 13:03 STATUS: KIRK REEmerita #: [id number] LISSET: 05/23/21 00:[address]: Nitish Gates DEPT: IMMUNOHISTOCHEMISTRY RECD BY: Riddhi Valentin ENTERED: 05/25/21 13:03 SP TYPE: IMMUNO OTHR DR: Dr. Christa Gaspar MD Tissues: B - Stomach, NOS Procedures: H Pylori (initial) PHYSICIAN & INSTITUTION [place] [id number] SPECIMEN INFORMATION: Tissue Source: B ? Stomach biopsy Clinical Info: Gastroparesis Specimen Number: [id number] CPT code: 40340 METHODOLOGY: Deparaffinized sections of prefer/formalin-fixed tissue or PAP/DQ stained slides are incubated with monoclonal/polyclonal antibodies/oligonucleotide probes. Localization is made via biotin free immunoperoxidase method. Appropriate controls are performed and reacted as expected. Results on target cell population are indicated in the following table: RESULTS: ANTIBODY / CLONE RESULT Block B H Pylori (polyclonal) negative These tests were developed and their performance characteristics determined by [facility]. They may not have been cleared or approved by the U.S. Food and Drug Administration. The FDA has determined that such clearance or approval is not necessary. The above immunohistochemical/dualISH markers are ordered and reviewed by the Pathologist. INTERPRETATION: B. Stomach biopsy: Negative for Helicobacter pylori organisms. SJ:jose 05/29/2021
[2021-05-23 11:13] VITALS: BP 125/54; PULSE 78; RESP 16; TEMP 36.3; O2SAT 100; BMI 22.1
[2021-05-23] MEDS: Lactated Ringers 1,000 ML 15 ML IV (11:17)
--- NOTE | 2021-05-23 12:00 | EGD_PTH ---
PATIENT: CHITRA DUMONT LOC: EN U#:[id number] AGE/SX: 80/F ROOM: RE05/23/[address]: Dr. Nitish Gates DO : 1940 BED: DIS: 05/23/2021 SPEC #: [id number] RECD: 05/23/21 15:02 STATUS: KIRK KIRK #: [id number] LISSET: 05/23/21 12:[address]: Nitish Gates DEPT: SURGICAL PATHOLOGY RECD BY: Pratima Issa ENTERED: 05/24/21 12:15 SP TYPE: EGD BIOPSY OT DR: Dr. Christa Gaspar MD Tissues: A - Duodenum, NOS B - Stomach, NOS C - Esophagus, NOS Procedures: Special Stain Group II Surgery Specimen Level IV Alcian Blue/PAS (control) HEADER [place] [place] DIAGNOSIS: Gastroparesis TISSUE SUBMITTED: A ? Duodenal biopsy, B ? Stomach biopsy, C ? Distal esophagus biopsy MICROSCOPIC DIAGNOSIS A. Duodenal biopsy: Fragments of duodenal mucosa with mild Lázaro gland hyperplasia. B. Stomach, biopsy: Mild gastritis. See microscopic description and comment. C. Distal esophagus, biopsy: Fragments of gastroesophageal mucosa with chronic inflammation. Intestinal metaplasia (goblet cell metaplasia) not identified. See comment. SJ:jose 05/25/2021 COMMENT B. The results of immunohistochemistry for Helicobacter pylori will be reported separately ([id number]). C. Alcian blue/PAS stain with matched control is used in the evaluation of the specimen. MICROSCOPIC DESCRIPTION Slides are reviewed. B. The specimen shows fragments of gastric mucosa with chronic inflammatory cell infiltrates in the lamina propria consisting of lymphocytes and plasma cells, consistent with mild chronic gastritis. GROSS DESCRIPTION A - Received in fixative is one container labeled with the patient's name and designated duodenal biopsy. The specimen consists of multiple irregular fragments of light patterson soft tissue that in aggregate measure 2 x 0.3 x 0.1 cm. The specimen is totally submitted in one cassette. B - Received in fixative is one container labeled with the patient's name and designated stomach biopsy. The specimen consists of multiple irregular fragments of light patterson soft tissue that in aggregate measure 1 x 0.3 x 0.1 cm. The specimen is totally submitted in one cassette. C - Received in fixative is one container labeled with the patient's name and designated distal esophagus biopsy. The specimen consists of two irregular fragments of light patterson soft tissue that in aggregate measure 0.6 x 0.3 x 0.1 cm. The specimen is totally submitted in one cassette. / ODIN:jose 05/24/21 TC:3 CPT: 58318 x3, 10941
--- NOTE | 2021-05-23 12:35 | PCM.HP.BLA ---
History and Physical Date of Admission: 05/23/21 80 F who presents to the office today for the evaluation of abdominal pain and getting full very fast. She has been having difficulty with early satiety following several bites of food, she reports that her stomach isn?t emptying fast enough based on the CT scan. Denies pain or GI upset. Reports mild constipation following CT with contrast. BM occurring every 4 days and have been hard. Normal BM is every day and normal consistency. Polymyalgia rheumatica, Meniere?s syndrome, essential tremors. Thyroid radiation performed 35 years ago due to overactive thyroid, she takes medication for this and bloodwork has been in desirable range. CT of abdomen performed 04/17/21with bilateral renal cysts not requiring follow up. Relative distention of the stomach noted. Some passage of contrast into distal small bowel without evidence of gastric outlet obstruction; query gastroparesis. Previously seen as urgent visit for gastroenteritis 08/05/19. Recommendations were clear fluids, BRAT diet and bismuth as needed and follow up with PCP. ROS Const Constitutional: Positive for weight change Gastro GI: Positive for change in bowel habits, constipation and heartburn Musc Musculoskeletal: Positive for stiffness and Arthritis Neuro Neurology: Positive for tremor(s) Endo Endocrine: Positive for cold intolerance and weight change Jun/Lymp Hematologic/Lymphatic: Positive for easy bruising Exam Const General: cooperative and comfortable Nutritional Appearance: average body habitus and well nourished [facility] Head: normal to inspection Ears: hearing grossly normal bilaterally Nose: external nose normal Face and sinus: normal facial exam Mouth: oral mucosae normal Throat: posterior oropharynx normal Eyes General: appearance normal, both eyes and all related structures Neck Neck: normal visual inspection Chest Chest palpation & inspection: normal inspection of the chest and normal palpation of entire chest wall Resp Effort & Inspection: normal respiratory effort Auscultation: Bilateral: Clear to Auscultation Cardio Palpation: normal PMI Rate: regular rate Rhythm: regular rhythm GI Inspection: normal to inspection Auscultation: normal bowel sounds Percussion: normal to percussion Palpation: no hepatosplenomegaly Skin General: no rashes or lesions noted Neuro General: patient alert Extrem General: normal to inspection Psych Affect: normal affect Quality Reporting Tobacco Screening ([facility] 138) Smoking Status: Current every day smoker Assessment and Plan Assessment and Plan (1) Gastroparesis: Status: Acute Plan - Dr. Talbert Friend, DO: She is having sinus symptoms of gastroparesis. The different diagnosis in her would be a complication of polymyalgia rheumatica associated with pyloric stenosis, medication induced gastroparesis, peptic ulcer disease at the GE junction secondary to prednisone and naproxen therapy. (2) GERD (gastroesophageal reflux disease): Status: Acute Plan - Dr. Talbert Friend, DO: She is having GERD with intermittent esophageal dysphagia. The diagnosis for this could be odynophagia secondary to prednisone therapy. We will perform an upper endoscopy to evaluate her upper GI tract. I have re-examined the patient. There are no clinical changes since date of exam.
[2021-05-23 12:59] VITALS: BP 125/54; BP 84/38; PULSE 85; RESP 16; TEMP 36; O2SAT 99
[2021-05-23 13:01] VITALS: BP 125/54; BP 92/57; PULSE 83; RESP 16; O2SAT 100
--- NOTE | 2021-05-23 13:03 | OP.CCLET_ITS ---
01/31/2022 Christa Gaspar [address] [place] [address] Re : Upper GI endoscopy procedure for Patty Griffith Dear Dr. Gaspar This procedure was performed on Sunday, May 23, 2021. My impressions and recommendations are as follows: Impressions : - LA Grade B reflux esophagitis. Rule out Cabrera's esophagus. Biopsied. - Atrophic gastritis. Biopsied. - Duodenitis. Biopsied. Recommendations : - Discharge patient to home. - Resume previous diet. - Use sucralfate suspension 1 gram PO BID for 4 weeks. 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 My findings are described in the full procedure note, which is enclosed. If I can be of further assistance, please feel free to contact me at . Sincerely, Nitish Friend, 05/23/2021 1:03:21 PM This report has been signed electronically.
--- NOTE | 2021-05-23 13:03 | OP.EGD_ITS ---
Patient Name: Patty Griffith Procedure Date: 05/23/2021 12:34 PM Date of : 1940 Age: 80 Procedure: Upper GI endoscopy Indications: Epigastric abdominal pain, Functional Dyspepsia Providers: Nitish Gates DO Medicines: See the Anesthesia note for documentation of the administered medications Patient Profile: This is an 80 year old female. Refer to note in patient chart for documentation of history and physical. Patient has symptoms. Complications: No immediate complications. Procedure: Pre-Anesthesia Assessment: - Prior to the procedure, a History and Physical was performed, and patient medications and allergies were reviewed. The patient is competent. The risks and benefits of the procedure and the sedation options and risks were discussed with the patient. All questions were answered and informed consent was obtained. Patient identification and proposed procedure were verified by the physician in the pre-procedure area. Mental Status Examination: alert and oriented. Airway Examination: normal oropharyngeal airway and neck mobility. Respiratory Examination: clear to auscultation. CV Examination: normal. Prophylactic Antibiotics: The patient does not require prophylactic antibiotics. Prior Anticoagulants: The patient has taken no previous anticoagulant or antiplatelet agents. ASA Grade Assessment: II - A patient with mild systemic disease. After reviewing the risks and benefits, the patient was deemed in satisfactory condition to undergo the procedure. The anesthesia plan was to use moderate sedation / analgesia (conscious sedation). Immediately prior to administration of medications, the patient was re-assessed for adequacy to receive sedatives. The heart rate, respiratory rate, oxygen saturations, blood pressure, adequacy of pulmonary ventilation, and response to care were monitored throughout the procedure. The physical status of the patient was re-assessed after the procedure. After obtaining informed consent, the endoscope was passed under direct vision. Throughout the procedure, the patient's blood pressure, pulse, and oxygen saturations were monitored continuously. The gastroscope was introduced through the mouth, and advanced to the second part of duodenum. The upper GI endoscopy was accomplished without difficulty. The patient tolerated the procedure well. Moderate Sedation: Moderate (conscious) sedation was administered by the endoscopy nurse and supervised by the endoscopist. The patient's oxygen saturation, heart rate, blood pressure and response to care were monitored. Total physician intraservice time was 15 minutes. Scope In: 12:41:22 PM Scope Out: 12:52:17 PM Total Procedure Duration Time 0 hours 10 minutes 55 seconds Findings: LA Grade B (one or more mucosal breaks greater than 5 mm, not extending between the tops of two mucosal folds) esophagitis with no bleeding was found 34 to 35 cm from the incisors. Biopsies were taken with a cold forceps for histology. Verification of patient identification for the specimen was done. Estimated blood loss was minimal. Diffuse moderate inflammation characterized by congestion (edema) and granularity was found in the entire examined stomach. Biopsies were taken with a cold forceps for histology. Verification of patient identification for the specimen was done. Estimated blood loss was minimal. Localized moderate inflammation characterized by congestion (edema), erythema and friability was found in the duodenal bulb. Biopsies were taken with a cold forceps for histology. Estimated blood loss was minimal. Biopsies were taken with a cold forceps for histology. Verification of patient identification for the specimen was done. Estimated blood loss was minimal. One non-bleeding cratered gastric ulcer with no stigmata of bleeding was found in the prepyloric region of the stomach. The lesion was 6 mm in largest dimension. Biopsies were taken with a cold forceps for histology. Verification of patient identification for the specimen was done. Estimated blood loss was minimal. Impression: - LA Grade B reflux esophagitis. Rule out Cabrera's esophagus. Biopsied. - Atrophic gastritis. Biopsied. - Duodenitis. Biopsied. Recommendation: - Discharge patient to home. - Resume previous diet. - Use sucralfate suspension 1 gram PO BID for 4 weeks. 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 Procedure Code(s): --- Professional --- 24638, Esophagogastroduodenoscopy, flexible, transoral; with biopsy, single or multiple 93722, 59, Moderate sedation services provided by the same physician or other qualified health chronic care nurse performing the diagnostic or therapeutic service that the sedation supports, requiring the presence of an independent trained observer to assist in the monitoring of the patient's level of consciousness and physiological status; initial 15 minutes of intraservice time, patient age 5 years or older CPT copyright 2017 [employer]. All rights reserved. The codes documented in this report are preliminary and upon culture manager review may be revised to meet current compliance requirements. Nitish Gates DO 05/23/2021 1:03:21 PM This report has been signed electronically. Number of Addenda: 1 Note Initiated On: 05/23/2021 12:34 PM Addendum Number: 1 Addendum Date: 01/31/2022 7:23:30 AM MAC was used instead of moderate sedation for the patient. Nitish Gates DO 01/31/2022 7:23:35 AM This report has been signed electronically.
[2021-05-23 13:07] VITALS: BP 103/52; BP 125/54; PULSE 78; RESP 16; O2SAT 100
[2021-05-23 13:11] VITALS: BP 107/53; BP 108/55; BP 125/54; PULSE 74; PULSE 75; RESP 16; TEMP 36.4; O2SAT 100; O2SAT 99
[2021-05-23 14:04] VITALS: BP 125/54
[2021-05-23 14:25] LABS: Erythrocyte Sedimentation Rate 12 mm/hr (0-30)
[2021-05-23 14:29] LABS: CRP < 2.90 mg/L (0.0-3.0); LDH 157 U/L (84-246)
[2021-05-25 13:47] LABS: Anti-Parietal Cell AB, QN 15.4 Units (0.0-20.0)
[2021-05-29 21:28] LABS: Gastrin, Serum 12 pg/mL (0-115)
== END 2021-05-23 14:12 ==
LOC: EN 10:50 → AC 10:52
PROVIDERS: PCP Family Medicine; Referring Provider Family Medicine; Visit Provider Internal Medicine Gastroenterology
PROC: 0DJ08ZZ Inspection of Upper Intestinal Tract, Via Natural or Artificial Opening Endoscopic (ICD-10-PCS; CPT 43235; principal; 2021-05-23 11:55)
DX: K21.00 Gastro-esophageal reflux disease with esophagitis, without bleeding (principal); K25.9 Gastric ulcer, unspecified as acute or chronic, without hemorrhage or perforation; K29.40 Chronic atrophic gastritis without bleeding; K29.80 Duodenitis without bleeding; Z20.822 Contact with and (suspected) exposure to COVID-19; M35.3 Polymyalgia rheumatica; F41.9 Anxiety disorder, unspecified; F17.200 Nicotine dependence, unspecified, uncomplicated; Z79.890 Hormone replacement therapy; Z79.899 Other long term (current) drug therapy; Z86.718 Personal history of other venous thrombosis and embolism
CPT/HCPCS: 43239; 82941; 83516; 83615; 85652; 86140; 86340; 87426; 88305; 88313; 88342; J7120; J2405

== ENCOUNTER 2021-07-04 09:45 | Outpatient (CLI) | payer MEDICARE, SELFPAY ==
--- NOTE | 2021-07-04 09:53 | NM_ITS ---
CLINICAL: 81-year-old female with reported history of early satiety. SEMI-SOLID PHASE 99m Tc SULFUR COLLOID GASTRIC EMPTYING STUDY COMPARISON: CT of the abdomen report 04/17/2021 FINDINGS: The patient was administered 1.1 mCi of 99m Tc sulfur colloid mixed with oatmeal and consumed per os. Image acquisitions in the anterior-posterior projections for a total of 60 minutes. There is prompt visualization of the stomach. There is no gastroesophageal reflux identified. First order kinetics are maintained throughout the duration of the acquisitions. The T ? linear fit was calculated to be 56.57 minutes, (Normal: 12-56 minutes). NM/Gastric Emptying Study IMPRESSION: 1. UPPER LIMITS OF NORMAL 99m Tc sulfur colloid semi-solid phase (oatmeal) gastric emptying imaging examination. A. There is upper limits of normal semi-solid phase gastric emptying compared to normal controls with maintained first order kinetics throughout all components of the examination. (Bouchra et al, J Nucl Med Tech 38: 186, 2010). Electronically Signed: Surendra Pierson DO at 22:42 EST ,
== END 2021-07-04 23:59 | disposition home or self-care (01) ==
PROVIDERS: PCP Family Medicine; Referring Provider Internal Medicine Gastroenterology; Visit Provider Internal Medicine Gastroenterology
DX: K31.84 Gastroparesis (principal)
CPT/HCPCS: 78264; A9541

== ENCOUNTER → 2022-02-06 | Outpatient (CLI) | payer MEDICARE, SELFPAY ==
[2022-02-06 15:45] LABS: Cholesterol 231 mg/dL (200); High Density Lipoprotein 57 mg/dL; T4 Total, Thyroxin 13.8 ug/dL (4.8-13.9); Thyroid Stim Hormone (TSH) 1.19 uIU/mL (0.358-3.74); Triglycerides 113 mg/dL; Very Low Density Lipoprotein 23 mg/dL (5-40)
== END | disposition home or self-care (01) ==
LOC: MFPLAB 11:33
PROVIDERS: PCP Family Medicine; Visit Provider Family Medicine
DX: E03.9 Hypothyroidism, unspecified (principal); E78.5 Hyperlipidemia, unspecified; R35.1 Nocturia
CPT/HCPCS: 36415; 80061; 84436; 84443

== ENCOUNTER → 2022-08-21 | Outpatient (CLI) | payer MEDICARE, SELFPAY ==
--- NOTE | 2022-08-21 14:54 | BI_ITS ---
MAMMOGRAPHY - BILATERAL SCREENING REASON FOR EXAM: Female, 82 years old. Routine annual screening examination. PERTINENT HISTORY: Aunt with breast cancer. TECHNIQUE: Digital bilateral breast tiffanie (3D mammographic acquisition) in the CC and MLO projections. 2-D mediolateral oblique (MLO) and craniocaudad (CC) views of both breasts were obtained. CAD: Full Field Digital Mammography with Computer Added Detection was performed. COMPARISON: Comparison is made with prior study January 08, 2020. FINDINGS: Breast Composition: There are scattered areas of fibroglandular density. There are no dominant masses or suspicious calcifications. Asymmetry of breast tissue in the breast tissue is seen in the left breast as compared to the right side. No other significant abnormalities are identified. There has been no significant change since the prior study. BI/SCRN MAMM (CAD)W/TIFFANIE BILAT IMPRESSION: Stable bilateral screening mammogram. Yearly follow-up mammogram recommended. (A) ASSESSMENT CATEGORY: BIRADS Category 2: Benign. A letter regarding these results will be sent to the patient by the facility within 30 days. Approximately 10% of breast cancers are not detected by mammography. A normal mammogram should not delay biopsy of a clinically suspicious abnormality. [id number] Electronically Signed: Vinh Olivia MD at 15:43 EDT ,
--- NOTE | 2022-08-21 15:03 | BD_ITS ---
STUDY: DUAL ENERGY X-RAY ABSORPTIOMETRY / DXA REASON FOR EXAM: Female, 82 years old. V76.12ScreeningBONE DENSITY REASON FOR EXAM TECHNIQUE: Bone Mineral Density (BMD) measurements of lumbar spine and bilateral hips were obtained. COMPARISON: Comparison is made with prior study dated October 19, 2014. FINDINGS: Lumbar Spine (L1-L4): g/cm2 (0.862) / T-score (-1.7) / Z-score (1.1) Findings are suggestive of osteopenia with a moderate fracture risk. Left Femur Total: g/cm2 (0.723) / T-score (-1.8) / Z-score (0.4) Left Femoral Neck: g/cm2 (0.598) / T-score (-2.3) / Z-score (0.1) Right Femur Total: g/cm2 (0.705) / T-score (-1.9) / Z-score (0.2) Right Femoral Neck: g/cm2 (0.616) / T-score (-2.1) / Z-score (0.3) The T-Scores on the most recent prior examination were: Lumbar Spine (L1-L4): There has been worsening of bone density since the previous examination. Left Femur Total: which represents a worsening of 2.4%. Right Femur Total: which represents a worsening of 2.9%. BD/Dexa Bone Density Study IMPRESSION: The patient is considered osteopenic as outlined below according to World Michael Organization (WHO) criteria with a high fracture risk. There has been worsening of bone density since the previous examination. Reference Information: The T-score is the number of standard deviations above or below the standard which is normal for young adults at their peak bone mineral density. The World Health Organization (WHO) interprets the T-scores as follows: Above -1 Normal bone density Between -1 and -2.5 Osteopenia Equal to / or below -2.5 Osteoporosis As a practical clinical guideline, osteopenia may be graded as follows: Mild -1 through -1.5 Moderate -1.6 through -2.0 Severe -2.1 through -2.4 The Z-score is the number of standard deviations above or below age-matched controls. A Z-score of less than -1.5 would be considered abnormal. References: 1. NIH Osteoporosis and Related Bone Diseases www osteo.org 2. International Society for Clinical Densitometry www iscd.org 3. National Osteoporosis Foundation www nof.org Electronically Signed: Vinh Olivia MD at 9:35 EDT ,
== END | disposition home or self-care (01) ==
LOC: OPBD 14:51
PROVIDERS: PCP Family Medicine; Referring Provider Family Medicine; Visit Provider Family Medicine
DX: Z12.31 Encounter for screening mammogram for malignant neoplasm of breast (principal); N95.9 Unspecified menopausal and perimenopausal disorder; Z78.0 Asymptomatic menopausal state
CPT/HCPCS: 77063; 77067; 77080

== ENCOUNTER → 2023-02-05 | Outpatient (CLI) | payer MEDICARE, SELFPAY ==
[2023-02-05 17:37] LABS: AST(SGOT) 17 U/L (15-37); Alanine Aminotransfer ALT/SGPT 23 U/L (13-56); T4 Total, Thyroxin 15.1 ug/dL (4.8-13.9); Thyroid Stim Hormone (TSH) 3.93 uIU/mL (0.358-3.74)
== END | disposition home or self-care (01) ==
LOC: MFPLAB 11:58
PROVIDERS: PCP Family Medicine; Visit Provider Family Medicine
DX: E03.9 Hypothyroidism, unspecified (principal); E78.5 Hyperlipidemia, unspecified
CPT/HCPCS: 36415; 84436; 84443; 84450; 84460

== ENCOUNTER → 2023-04-05 | Outpatient (CLI) | payer MEDICARE, SELFPAY ==
[2023-04-05 18:17] LABS: Thyroid Stim Hormone (TSH) 0.44 uIU/mL (0.358-3.74)
== END | disposition home or self-care (01) ==
LOC: MFPLAB 14:37
PROVIDERS: PCP Family Medicine; Visit Provider Family Medicine
DX: E03.9 Hypothyroidism, unspecified (principal)
CPT/HCPCS: 36415; 84443

== ENCOUNTER → 2023-08-13 | Outpatient (CLI) | payer MEDICARE, SELFPAY ==
--- NOTE | 2023-08-13 12:44 | RAD_ITS ---
STUDY: X-RAY CHEST REASON FOR EXAM: Female, 83 years old. Malaise and fatigue. TECHNIQUE: Frontal and lateral views of the chest. COMPARISON: 04/04/2021. FINDINGS: Stable mild hyperinflation. There is no demonstrated pleural abnormality. Normal size heart. Normal mediastinum and marie. Normal visualized pulmonary arteries. Normal visualized aortic arch and descending thoracic aorta. Normal visualized thoracic spine. Normal visualized ribs, clavicles, and shoulders. No abnormality of the visualized soft tissue structures of the upper abdomen. RAD/Chest PA and Lateral IMPRESSION: Stable mild hyperinflation with no acute or active cardiopulmonary disease. Electronically Signed: Mani Champagne MD at 10:40 EDT ,
[2023-08-13 15:47] LABS: Absolute Lymphocyte Count 1.31 X10^3/uL (0.83-4.51); Absolute Neutrophil Count 4.3 X10^3/uL (2.0-7.7); Basophil# 0.09 X10^3/uL; Basophil% 1.4 % (0-1); Eosinophil# 0.14 X10^3/uL; Eosinophils% 2.2 % (0-5); Hematocrit 43.3 % (37-47); Hemoglobin 14.1 g/dL (12.0-15.0); Lymphocyte # 1.31 X10^3/ul (0.83-4.51); Lymphocyte % 20.2 % (19-41); Mean Corp Hgb Conc 32.6 g/dL (32-36); Mean Corpuscular Hgb 29.1 pg (27.0-32.0); Mean Corpuscular Volume 89.3 fL (81-99); Mean Platelet Vol. 11.7 fl (6.2-12.0); Monocyte# 0.62 X10^3/uL; Monocyte% 9.6 % (0-10); NRBC Flagged by Analyzer 0 % (0-5); Neutrophil # 4.31 X10^3/uL (2.7-7.7); Neutrophil % 66.3 % (47-70); Platelet Count 287 K/mm3 (150-450); RBC Distribution Width CV 13.1 % (11.6-14.6); RBC Distribution Width SD 42.5 fl (35.1-43.9); Red Blood Count 4.85 M/mm3 (4.2-5.4); White Blood Count 6.5 K/mm3 (4.4-11.0)
[2023-08-13 16:02] LABS: Erythrocyte Sedimentation Rate 12 mm/hr (0-30)
[2023-08-13 16:25] LABS: ALB/GLOB Ratio 1.1 RATIO (0.9-2.4); AST(SGOT) 19 U/L (15-37); Alanine Aminotransfer ALT/SGPT 25 U/L (13-56); Albumin, Serum 3.9 g/dL (3.2-5.0); Alkaline Phosphatase 85 U/L (45-117); Anion Gap 7 (5-15); BUN 14 mg/dL (7-18); BUN/Creat Ratio 17.9 RATIO (10-20); Calcium,Total 9.8 mg/dL (8.5-10.1); Chloride 108 mmol/L (98-107); Cholesterol 229 mg/dL (200); Creatinine, Serum 0.78 mg/dL (0.55-1.02); EST Glomerular Filtration Rate 75 mL/min (>60); Est Glom Filt Rate - Afr Amer 90 mL/min (>60); Globulin 3.6 g/dL (2.2-4.2); Glucose 92 mg/dL (74-106); High Density Lipoprotein 63 mg/dL; Potassium 4.3 mmol/L (3.5-5.1); Protein, Total 7.5 g/dL (6.4-8.2); Sodium Level 142 mmol/L (136-145); T4 Total, Thyroxin 18.4 ug/dL (4.8-13.9); Thyroid Stim Hormone (TSH) 0.24 uIU/mL (0.358-3.74); Triglycerides 134 mg/dL; Very Low Density Lipoprotein 27 mg/dL (5-40)
== END | disposition home or self-care (01) ==
PROVIDERS: PCP Family Medicine; Referring Provider Family Medicine; Visit Provider Family Medicine
DX: R53.81 Other malaise (principal); R53.83 Other fatigue; E03.9 Hypothyroidism, unspecified; E78.5 Hyperlipidemia, unspecified
CPT/HCPCS: 36415; 71046; 80053; 80061; 84436; 84443; 85025; 85652

== ENCOUNTER → 2023-09-17 | Outpatient (CLI) | payer MEDICARE, SELFPAY ==
--- NOTE | 2023-09-17 10:07 | BI_ITS ---
MAMMOGRAPHY - BILATERAL SCREENING REASON FOR EXAM: Female, 83 years old. Routine annual screening examination. PERTINENT HISTORY: Aunt with breast cancer. TECHNIQUE: Digital bilateral breast tiffnaie (3D mammographic acquisition) in the CC and MLO projections. 2-D mediolateral oblique (MLO) and craniocaudad (CC) views of both breasts were obtained. CAD: Full Field Digital Mammography with Computer Added Detection was performed. COMPARISON: Comparison is made with prior study August 21, 2022 and January 08, 2020. FINDINGS: Breast Composition: There are scattered areas of fibroglandular density. There are no dominant masses or suspicious calcifications. Stable asymmetry of breast tissue with more breast tissue is seen in the left breast as compared to the right side. No other significant abnormalities are identified. There has been no significant change since the prior study. BI/SCRN MAMM (CAD)W/TIFFANIE BILAT IMPRESSION: Stable bilateral screening mammogram. Yearly follow-up mammogram recommended. (A) ASSESSMENT CATEGORY: BIRADS Category 2: Benign. A letter regarding these results will be sent to the patient by the facility within 30 days. Approximately 10% of breast cancers are not detected by mammography. A normal mammogram should not delay biopsy of a clinically suspicious abnormality. [id number] Electronically Signed: Vinh Olivia MD at 11:27 EDT ,
== END | disposition home or self-care (01) ==
LOC: OPBI 10:06
PROVIDERS: PCP Family Medicine; Referring Provider Family Medicine; Visit Provider Family Medicine
DX: Z12.31 Encounter for screening mammogram for malignant neoplasm of breast (principal)
CPT/HCPCS: 77063; 77067

== ENCOUNTER → 2023-12-25 | Outpatient (CLI) | payer MEDICARE, SELFPAY ==
--- NOTE | 2023-12-25 10:15 | MRI_ITS ---
STUDY: MRI BRAIN WITH AND WITHOUT CONTRAST (ATTENTION INTERNAL AUDITORY CANALS - I.A.C.''s) REASON FOR EXAM: Female, 83 years old. RT HEARING LOSS, TINNITUS TECHNIQUE: Standardized multiplanar fat and water weighted pulse sequences were obtained. 11ML IV CLARISCAN was administered for the contrast portion of the examination. COMPARISON: 10/15/2017 FINDINGS: Normal bilateral temporal bones. Normal bilateral internal auditory canals. There is no demonstrated intracanalicular or cisternal vestibular schwannoma (acoustic neuroma). There is no enhancement of the bilateral VIIth or VIIIth cranial nerves. Normal bilateral cochlea, vestibules and semicircular canals. There is mild cerebral atrophy with widening of the extra-axial spaces and ventricular dilatation. There are a limited number of small white matter hyperintensities, distributed throughout the deep white matter tracts of the cerebral hemispheres, consistent with mild chronic white matter ischemic changes. There is no evidence for recent intracranial ischemia or other cause of cytotoxic edema on diffusion weighted imaging (DWI). Normal bilateral basal ganglia. Normal thalami. Normal flow voids within the major intracranial circulation suggesting patency by spin echo criteria. Normal venous enhancement. There is no enhancing intra-axial or extra-axial abnormality. There is no extra-axial fluid accumulation. Normal sella turcica, pituitary gland, infundibular stalk, optic chiasm and hypothalamus. Normal tectal plate and pineal gland. Normal midbrain, avery and medulla. Normal cerebellum. Normal basal cisterns. There are bilateral ocular lens implants with otherwise normal intraorbital contents. Normal visualized paranasal sinuses. Normal calvarium and skull base. Normal visualized soft tissue structures. Normal visualized upper cervical spine. MRI/Brain W/WO Contrast IMPRESSION: Normal unenhanced and enhanced MRI of the bilateral internal auditory canals (I.A.C''s). Electronically Signed: Surendra Wilks MD at 14:39 EDT ,
[2023-12-25 10:46] LABS: CREATININE FINGERSTICK < 1.0 mg/dL (0.55-1.02); EGFR FINGERSTICK > 60.0000 mL/min (>60)
== END | disposition home or self-care (01) ==
PROVIDERS: PCP Family Medicine; Referring Provider Otolaryngology; Visit Provider Otolaryngology
DX: Z01.812 Encounter for preprocedural laboratory examination (principal); H90.3 Sensorineural hearing loss, bilateral; H93.11 Tinnitus, right ear
CPT/HCPCS: 70553; A9575

== ENCOUNTER → 2024-10-26 | Outpatient (CLI) | payer MEDICARE, SELFPAY ==
[2024-10-26 15:34] LABS: Absolute Lymphocyte Count 1.45 X10^3/uL (0.83-4.51); Absolute Neutrophil Count 3.7 X10^3/uL (2.0-7.7); Basophil# 0.11 X10^3/uL; Basophil% 1.8 % (0-1); Eosinophil# 0.19 X10^3/uL; Eosinophils% 3.2 % (0-5); Hematocrit 40.1 % (37-47); Hemoglobin 12.5 g/dL (12.0-15.0); Lymphocyte # 1.45 X10^3/ul (0.83-4.51); Lymphocyte % 24.1 % (19-41); Mean Corp Hgb Conc 31.2 g/dL (32-36); Mean Corpuscular Hgb 28.1 pg (27.0-32.0); Mean Corpuscular Volume 90.1 fL (81-99); Monocyte# 0.55 X10^3/uL; Monocyte% 9.1 % (0-10); NRBC Flagged by Analyzer 0 % (0-5); Neutrophil % 61.5 % (47-70); Platelet Count 269 K/mm3 (150-450); RBC Distribution Width CV 13.3 % (11.6-14.6); RBC Distribution Width SD 44.1 fl (35.1-43.9); Red Blood Count 4.45 M/mm3 (4.2-5.4)
[2024-10-26 15:50] LABS: ALB/GLOB Ratio 1.9 RATIO (0.9-2.4); AST(SGOT) 20 U/L (<=31); Alanine Aminotransfer ALT/SGPT 10 U/L (<=34); Albumin, Serum 4.4 g/dL (3.4-4.8); Alkaline Phosphatase 90 U/L (35-104); Anion Gap 10 (5-15); BUN 14 mg/dL (4-19); BUN/Creat Ratio 14.6 RATIO (10-20); Calcium,Total 10.1 mg/dL (7.6-11.0); Carbon Dioxide 24.3 mmol/L (21.0-32.0); Chloride 105 mmol/L (98-108); Creatinine, Serum 0.94 mg/dL (0.70-1.20); EST Glomerular Filtration Rate 60 (>60); Globulin 2.4 g/dL (2.2-4.2); Glucose 90 mg/dL (70-99); Potassium 4.2 mmol/L (3.3-5.1); Protein, Total 6.8 g/dL (5.9-8.4); Sodium Level 140 mmol/L (133-145)
== END | disposition home or self-care (01) ==
LOC: MTLAB 11:28
PROVIDERS: PCP Family Medicine; Referring Provider Family Medicine; Visit Provider Family Medicine
DX: E03.9 Hypothyroidism, unspecified (principal); G25.0 Essential tremor; H81.03 Meniere's disease, bilateral
CPT/HCPCS: 36415; 80053; 84443; 85025

== ENCOUNTER → 2024-11-04 | Outpatient (CLI) | payer MEDICARE, SELFPAY ==
--- NOTE | 2024-11-04 11:58 | BI_ITS ---
EXAM: SCRN MAMM (CAD)W/TIFFANIE BILAT 11/04/2024 CLINICAL HISTORY: F, Age 84 y/o , SCREENING TECHNIQUE: Bilateral screening digital breast tomosynthesis with 2D and 3D images. Computer aided detection. COMPARISON: Prior exam(s) dated 09/17/2023, 08/13/2022, 01/08/2020. FINDINGS: TISSUE DENSITY: The breast tissue is composed of scattered area of fibroglandular density. Bilateral Breast Mammographic Findings: No significant masses, calcifications or other abnormalities are identified. BI/SCRN MAMM (CAD)W/TIFFANIE BILAT IMPRESSION: Right Breast: BIRADS 1 NEGATIVE. Left Breast: BIRADS 1 NEGATIVE. OVERALL FINAL ASSESSMENT: BIRADS 1 NEGATIVE. RECOMMENDATION: Routine annual follow-up in 1 Year A letter with findings and recommendations will be mailed to the patient. Reading Location: [id number]
== END | disposition home or self-care (01) ==
LOC: OPBI 11:57
PROVIDERS: PCP Family Medicine; Referring Provider Family Medicine; Visit Provider Family Medicine
DX: Z12.31 Encounter for screening mammogram for malignant neoplasm of breast (principal)
CPT/HCPCS: 77063; 77067

== ENCOUNTER → 2025-04-15 | Outpatient (CLI) | payer MEDICARE, SELFPAY ==
--- NOTE | 2025-04-15 11:29 | RAD_ITS ---
PROCEDURE: CERV SPINE 4 OR 5 VIEWS 04/15/2025 REASON FOR EXAM: RIGHT LEG AND HAND WEAKNESS TECHNIQUE: [facility] Procedure: CERV SPINE 4 OR 5 VIEWS FINDINGS: No acute fracture. Minimal grade 1 anterolisthesis of C2 on C3, and a grade 1 retrolisthesis of C5 on C6. Moderate to severe disc space narrowing of various degrees is noted throughout the cervical spine, with small anterior osteophytes. The relationship of C1 on C2 appears normal. The prevertebral soft tissues appear unremarkable. RAD/Cerv Spine 4 or 5 Views IMPRESSION: Severe cervical spondylosis. Reading Location: [id number]
--- NOTE | 2025-04-15 11:30 | RAD_ITS ---
PROCEDURE: L/S SPINE MIN 4 VIEWS 04/15/2025 REASON FOR EXAM: RIGHT LEG AND HAND WEAKNESS TECHNIQUE: Procedure Code: RADSPLS Modality: DX Procedure: L/S SPINE MIN 4 VIEWS FINDINGS: No evidence of acute fracture or dislocation. Severe disc space narrowing at L5-S1. Moderate disc space narrowing at L1-2, L2-3, and L3-4. Up to mild disc space narrowing of the other visualized levels. Mild lower lumbar facet arthropathy. Vertebral body heights are maintained. Normal alignment. No visualized pars defects. RAD/L/S Spine Min 4 Views IMPRESSION: Spondylosis. Reading Location: [id number]
== END | disposition home or self-care (01) ==
LOC: MTRAD 11:28
PROVIDERS: PCP Family Medicine; Referring Provider Family Medicine; Visit Provider Family Medicine
DX: M62.81 Muscle weakness (generalized) (principal)
CPT/HCPCS: 72050; 72110

== ENCOUNTER → 2025-04-27 | Outpatient (CLI) | payer MEDICARE, SELFPAY ==
--- NOTE | 2025-04-27 12:46 | CDU_ITS ---
Reason For Study Reason For Study: Rt Side Weakness Rt. Velocities/BP Lt. Velocities/BP Prox CCA 97.9/15.7 cm/sec. Prox CCA 93.0/19.3 cm/sec. Mid CCA 76.0/13.9 cm/sec. Mid CCA 60.0/14.9 cm/sec. Dist CCA 63.2/17.5 cm/sec. Dist CCA 65.5/14.9 cm/sec. Prox ICA 79.6/23.0 cm/sec. Prox ICA 61.1/18.2 cm/sec. Mid ICA 72.3/19.4 cm/sec. Mid ICA 76.5/22.6 cm/sec. Dist ICA 88.8/28.5 cm/sec. Dist ICA 90.5/26.7 cm/sec. Rt. ICA/CCA = 1.2. Lt. ICA/CCA = 1.5. Prox ECA 62.9/11.0 cm/sec. Prox ECA 62.9/11.0 cm/sec. Rt. Vert. 47.8/10.0 cm/sec. Lt. Vert. 54.5 cm/sec. Right Extracranial There is intimal thickening but no significant atherosclerotic plaque noted in the right common carotid artery. There is heterogeneous, irregular atherosclerotic plaque noted in the right internal carotid artery. There is intimal thickening but no significant atherosclerotic plaque noted in the right external carotid artery. Antegrade flow is noted in the right vertebral artery. Left Extracranial There is intimal thickening but no significant atherosclerotic plaque noted in the left common carotid artery. There is intimal thickening but no significant atherosclerotic plaque noted in the left internal carotid artery. There is intimal thickening but no significant atherosclerotic plaque noted in the left external carotid artery. Antegrade flow is noted in the left vertebral artery. Procedure Carotid Duplex [id number]. This is a Carotid Duplex examination using B-mode, color flow and specral Doppler. The exam was diagnostic. Exam performed in department. VL/Carotid Duplex Ultrasound Interpretation Summary Mild (<50%) stenosis right extracranial internal carotid. No significant athero sclerotic plaque or stenosis noted in the left internal carotid artery. Flow within the vertebral arteries is antegrade b ilaterally. Ordering Physician: Rosana Silva Referring Physician: Rosana Silva Performed By: Guy Bynre RVT
== END | disposition home or self-care (01) ==
LOC: CVS 12:42
PROVIDERS: PCP Family Medicine; Referring Provider Family Medicine; Visit Provider Family Medicine
DX: I65.21 Occlusion and stenosis of right carotid artery (principal); M62.81 Muscle weakness (generalized)
CPT/HCPCS: 93880